=== PATIENT | female | born 2000 | race Caucasian/White ===

== ENCOUNTER → 2023-05-25 | Outpatient (CLI) | payer OTHER, SELFPAY ==
[2023-05-25 12:53] LABS: Bacteria 0 SEEN /hpf (None Seen); Mucous, Urine 0 SEEN /hpf (<or=2+); White Blood Cells 0 SEEN /hpf (0-5)
[2023-05-25 13:18] LABS: Color, Urine Yellow (Yellow); Glucose, Dipstick Normal (Normal); Ketone-Dipstick 5 mg/dl (Negative); Leukocyte Esterase-Dipstick Negative /ul (Negative); Nitrite-Dipstick Negative (Negative); Occult Blood-Urine 50 /ul (Negative); Protein-Dipstick 15 mg/dl (Negative); Specific Gravity, Urine 1.005 (1.002-1.030); Urine Bilirubin Dipstick Negative (Negative); Urine Clarity Sl. Cloudy (Clear); Urine Urobilinogen Normal (Normal)
[2023-05-25 13:24] LABS: Red Blood Cells-Urine 0-5 SEEN /hpf (0-5); Squamous Epithelial Cells - UA 5-10 SEEN /hpf (5-10)
== END | disposition home or self-care (01) ==
LOC: LAB 12:03 → LABSPEC 12:06
PROVIDERS: Referring Provider Physician Assistant; Visit Provider Physician Assistant
DX: N39.0 Urinary tract infection, site not specified (principal)
CPT/HCPCS: 81001; 87086

== ENCOUNTER 2024-02-29 11:41 | Emergency (ER) | payer OTHER, SELFPAY ==
[2024-02-29 11:43] VITALS: BP 142/78; PULSE 77; RESP 18; TEMP 36.9; O2SAT 98; BMI 27.8
[2024-02-29 11:48] VITALS: BP 142/78; PULSE 77; RESP 18; TEMP 36.9; O2SAT 98
--- NOTE | 2024-02-29 11:56 | EX.ED.DYSGE1 ---
HPI History of Present Illness Chief Complaint: Abd Pain Narrative Narrative: 23-year-old female presents with left upper quadrant abdominal pain and nausea and vomiting x 2 that started this morning. She states she has had this type of upper abdominal pain intermittently for years. She is 11 weeks and it has been a little more frequent since then but today is the most severe. Last night she had potatoes and a hot dog and this morning had a couple pretzels and then vomited twice and the emesis looked brown. Nothing bloody or black. She states she has been mildly constipated in the period but had a bowel movement yesterday and has had no melena or hematochezia. She takes no medications. She does not smoke or drink alcohol. No surgical history. PFSH PFSH Home Medications ?Medication ?Instructions ?Recorded ?Last Taken ?Type nitrofurantoin macrocrystal 100 mg 100 mg PO Q12H #10 caps 05/25/23 Unknown Rx capsule omeprazole 20 mg capsule,delayed 20 mg PO DAILY #30 CAPSULES 02/29/24 Unknown Rx release Allergy/AdvReac Type Severity Reaction Status Date / Time No Known Allergies Allergy Verified 02/29/24 11:42 Social History Smoking Status: Never smoker ROS ROS ED ROS Narrative Constitutional: Negative for fever, chills, malaise. CVS: Negative for chest pain, syncope. Respiratory: Negative for shortness of breath. GI: Positive for abdominal pain, nausea, vomiting. Negative for melena, hematochezia. : Negative for dysuria. EXAM Physical Exam Narrative Exam Narrative: CONST: Patient sitting in no acute distress. EYES: Normal inspection. NECK: Normal inspection. RESP: No respiratory distress, CTAB. CVS: Regular rate and rhythm, no murmur, no gallop. ABD: Soft with mild left upper quadrant tenderness, no guarding or rebound, nondistended, no hepatosplenomegaly. SKIN: Color normal, no rash, warm, dry, intact. EXTREMITIES: Normal appearance, no pedal edema. NEURO: Alert and answering questions appropriately. PSYCH: Normal affect. Const Vital Signs: 02/29/24 11:43 02/29/24 11:48 02/29/24 12:00 Temperature 98.4 F 98.4 F Temperature Source Oral Oral Pulse Rate 77 77 67 Respiratory Rate 18 18 16 Blood Pressure 142/78 H 142/78 H 132/78 H Blood Pressure Mean 99 99 96 Pulse Ox 98 98 98 Oxygen Delivery Method Room Air Room Air 02/29/24 13:00 02/29/24 14:00 02/29/24 14:49 Temperature 97.2 F L Temperature Source Pulse Rate 76 67 61 Respiratory Rate 18 16 15 Blood Pressure 133/83 H 130/78 H 124/69 H Blood Pressure Mean 99 95 87 Pulse Ox 96 97 99 Oxygen Delivery Method Room Air Room Air MDM MDM MDM Narrative Medical decision making narrative: History gathered from: Patient and spouse Differential: GERD, PUD, pancreatitis, less likely gallbladder etiology or kidney stone based on history/location Patient has left upper quadrant pain with nausea and vomiting. This has been an intermittent problem but seemed worse today. She appears well and nontoxic. Vital signs stable. She has normal cardiopulmonary exam tenderness in left upper quadrant with no peritoneal signs. CBC, CMP, lipase only notable for mild hypokalemia at 3.2. test is negative. She was initially treated with IV Zofran, Pepcid, and p.o. potassium. She still had some abdominal discomfort which resolved after GI cocktail. I suspect GERD and discussed lifestyle changes and prescribed omeprazole. Return precautions were discussed and she was discharged in stable condition. Lab Data Attestation: I reviewed the patient's lab results. Labs: Laboratory Results - last 24 hr 02/29/24 11:50 WBC 8.7 RBC 4.43 Hgb 12.6 Hct 37.6 MCV 84.9 MCH 28.4 MCHC 33.5 RDW Std Deviation 36.7 RDW Coeff of Lawson 12.0 Plt Count 355 MPV 9.8 Immature Gran % (Auto) 0.500 Neut % (Auto) 75.3 H Lymph % (Auto) 16.6 L [place] % (Auto) 5.7 Eos % (Auto) 1.4 Baso % (Auto) 0.5 Absolute Neuts (auto) 6.5 Absolute Lymphs (auto) 1.44 Nucleated RBC % 0 Sodium 138 Potassium 3.2 L Chloride 106 Carbon Dioxide 24.0 Anion Gap 8 BUN 14 Creatinine 0.79 Estim Creat Clear Calc 96.79 Est GFR (MDRD) Af Amer 115 Est GFR (MDRD) Non-Af 95 BUN/Creatinine Ratio 17.7 Glucose 132 H Calcium 9.2 Total Bilirubin 0.60 AST 8 L ALT 10 L Alkaline Phosphatase 74 Total Protein 7.3 Albumin 4.1 Globulin 3.2 Albumin/Globulin Ratio 1.3 Lipase 38 Serum , Qual NEGATIVE Discharge Plan Triage Chief Complaint: Abd Pain ED Midlevel Provider: Lorenza Fowler ED Provider: Shakeel Olguin Dx/Rx/DC Orders Clinical Impression: Acute epigastric pain, Nausea and vomiting, Hypokalemia Instructions: ED GERD (Adult) Prescriptions: New omeprazole 20 mg capsule,delayed release(DR/EC) 20 mg PO DAILY Qty: 30 0RF No Action nitrofurantoin macrocrystal 100 mg capsule 100 mg PO Q12H Qty: 10 0RF Rx Instructions: must administer with a meal/food Primary Care Provider: Mauricio Brown Referrals: Mauricio Brown, [Primary Care Provider] - Activity Restrictions/Additional Instructions: Avoid spicy food or fried or fatty foods. After eating sit upright for least 2 hours. Take the medication daily and follow-up with your doctor. Return if symptoms worsen. Print Language: Nepalese Disposition Disposition: Home, Self Care Discharge Date/Time: 02/29/24 14:50
[2024-02-29] MEDS: Ondansetron 4 MG/2 ML Vial IV (11:58)
[2024-02-29 12:00] VITALS: BP 132/78; PULSE 67; RESP 16; O2SAT 98
[2024-02-29] MEDS: Famotidine 200 MG/20 ML MDV 20 MG in 0.9% Normal Saline (Pres. free 8 ML 300 MG IV (12:13)
[2024-02-29 12:19] LABS: Absolute Lymphocyte Count 1.44 X10^3/uL (0.83-4.51); Absolute Neutrophil Count 6.5 X10^3/uL (2.0-7.7); Basophil# 0.04 X10^3/uL; Basophil% 0.5 % (0-1); Eosinophil# 0.12 X10^3/uL; Eosinophils% 1.4 % (0-5); Hematocrit 37.6 % (37-47); Hemoglobin 12.6 g/dL (12.0-15.0); Lymphocyte # 1.44 X10^3/ul (0.83-4.51); Lymphocyte % 16.6 % (19-41); Mean Corp Hgb Conc 33.5 g/dL (32-36); Mean Corpuscular Hgb 28.4 pg (27.0-32.0); Mean Corpuscular Volume 84.9 fL (81-99); Mean Platelet Vol. 9.8 fl (6.2-12.0); Monocyte# 0.49 X10^3/uL; Monocyte% 5.7 % (0-10); NRBC Flagged by Analyzer 0 % (0-5); Neutrophil # 6.53 X10^3/uL (2.7-7.7); Neutrophil % 75.3 % (47-70); Platelet Count 355 K/mm3 (150-450); RBC Distribution Width SD 36.7 fl (35.1-43.9); Red Blood Count 4.43 M/mm3 (4.2-5.4); White Blood Count 8.7 K/mm3 (4.4-11.0)
[2024-02-29 12:34] LABS: ALB/GLOB Ratio 1.3 RATIO (0.9-2.4); AST(SGOT) 8 U/L (15-37); Alanine Aminotransfer ALT/SGPT 10 U/L (13-56); Albumin, Serum 4.1 g/dL (3.2-5.0); Alkaline Phosphatase 74 U/L (45-117); Anion Gap 8 (5-15); BUN 14 mg/dL (7-18); BUN/Creat Ratio 17.7 RATIO (10-20); Calcium,Total 9.2 mg/dL (8.5-10.1); Chloride 106 mmol/L (98-107); Creatinine, Serum 0.79 mg/dL (0.55-1.02); EST Glomerular Filtration Rate 95 mL/min (>60); Est Glom Filt Rate - Afr Amer 115 mL/min (>60); Estimated Creatinine Clearance 96.79 ml/min; Globulin 3.2 g/dL (2.2-4.2); Glucose 132 mg/dL (74-106); Lipase 38 U/L (13-75); Potassium 3.2 mmol/L (3.5-5.1); Protein, Total 7.3 g/dL (6.4-8.2); Sodium Level 138 mmol/L (136-145)
[2024-02-29 12:41] LABS: Internal QC Validated? YES +Cl - CLEAR BKGD; Pregnancy, Serum, hCG Quali. NEGATIVE Negative
[2024-02-29 13:00] VITALS: BP 133/83; PULSE 76; RESP 18; O2SAT 96
[2024-02-29] MEDS: Lidocaine 2% Viscous15 ML UDC 15 ML PO (13:45)
[2024-02-29] MEDS: Mag Hydrox/Al Hydrox/Simeth 30 ML UDC PO (13:46)
[2024-02-29] MEDS: Potassium Chloride Oral Tablet 20 MEQ 40 MEQ PO (13:46)
[2024-02-29 14:00] VITALS: BP 130/78; PULSE 67; RESP 16; O2SAT 97
[2024-02-29 14:49] VITALS: BP 124/69; PULSE 61; RESP 15; TEMP 36.2; O2SAT 99
== END 2024-02-29 14:50 | disposition home or self-care (01) ==
PROVIDERS: Physician Assistant; Emergency Provider Emergency Medicine; PCP Family Medicine; Visit Provider Emergency Medicine
DX: R10.12 Left upper quadrant pain (principal); R10.13 Epigastric pain; E87.6 Hypokalemia; R11.2 Nausea with vomiting, unspecified
CPT/HCPCS: 80053; 83690; 84703; 85025; 90471; 96365; 96366; 96375; 99283; A4216; J2405; J3490

== ENCOUNTER 2024-03-04 23:32 | Observation (INO) | payer OTHER, SELFPAY ==
[2024-03-04 23:33] VITALS: PULSE 90; RESP 18; TEMP 37.2; O2SAT 98; BMI 28.6
[2024-03-04 23:38] VITALS: BP 133/85; PULSE 94; RESP 18; TEMP 37.2; O2SAT 95
[2024-03-05] VITALS (12 sets, daily range): BP systolic 113–133; BP diastolic 65–84; PULSE 69–103; RESP 14–18; TEMP 36.2–36.8; O2SAT 96–99; BMI 28.6
[2024-03-05 00:40] LABS: Bacteria 0 SEEN /hpf (None Seen); Mucous, Urine 0 SEEN /hpf (<or=2+); Red Blood Cells-Urine 0 SEEN /hpf (0-5); Squamous Epithelial Cells - UA 0 SEEN /hpf (5-10)
[2024-03-05 00:42] LABS: Color, Urine Yellow (Yellow); Glucose, Dipstick Normal (Normal); Ketone-Dipstick 50 mg/dl (Negative); Leukocyte Esterase-Dipstick 100 /ul (Negative); Nitrite-Dipstick Negative (Negative); Occult Blood-Urine 25 /ul (Negative); Protein-Dipstick 30 mg/dl (Negative); Urine Bilirubin Dipstick Negative (Negative); Urine Clarity Clear (Clear); Urine Urobilinogen Normal (Normal); Urine pH 6.5 (5.0 - 8.0)
[2024-03-05 00:42] LABS: Absolute Lymphocyte Count 1.46 X10^3/uL (0.83-4.51); Absolute Neutrophil Count 6.7 X10^3/uL (2.0-7.7); Basophil# 0.04 X10^3/uL; Basophil% 0.4 % (0-1); Eosinophil# 0.21 X10^3/uL; Eosinophils% 2.2 % (0-5); Hematocrit 32.8 % (37-47); Hemoglobin 10.8 g/dL (12.0-15.0); Lymphocyte # 1.46 X10^3/ul (0.83-4.51); Lymphocyte % 15.5 % (19-41); Mean Corp Hgb Conc 32.9 g/dL (32-36); Mean Corpuscular Hgb 28.6 pg (27.0-32.0); Mean Corpuscular Volume 86.8 fL (81-99); Mean Platelet Vol. 9.6 fl (6.2-12.0); Monocyte# 0.79 X10^3/uL; Monocyte% 8.4 % (0-10); NRBC Flagged by Analyzer 0 % (0-5); Neutrophil # 6.74 X10^3/uL (2.7-7.7); Neutrophil % 71.5 % (47-70); Platelet Count 329 K/mm3 (150-450); RBC Distribution Width SD 38.1 fl (35.1-43.9); Red Blood Count 3.78 M/mm3 (4.2-5.4); White Blood Count 9.4 K/mm3 (4.4-11.0)
[2024-03-05 00:51] LABS: White Blood Cells 0-5 SEEN /hpf (0-5)
[2024-03-05 01:04] LABS: Anion Gap 8 (5-15); BUN 15 mg/dL (7-18); BUN/Creat Ratio 11.6 RATIO (10-20); Calcium,Total 8.5 mg/dL (8.5-10.1); Chloride 107 mmol/L (98-107); Creatinine, Serum 1.29 mg/dL (0.55-1.02); EST Glomerular Filtration Rate 54 mL/min (>60); Est Glom Filt Rate - Afr Amer 66 mL/min (>60); Estimated Creatinine Clearance 60.13 ml/min; Glucose 99 mg/dL (74-106); Potassium 3.3 mmol/L (3.5-5.1); Sodium Level 138 mmol/L (136-145)
[2024-03-05] MEDS: 0.9% Normal Saline (1000mL) 1,000 ML 250 ML IV (01:15)
--- NOTE | 2024-03-05 01:48 | EX.ED.DYSGE1 ---
HPI History of Present Illness Chief Complaint: Complaint Informant: patient and spouse/S.O. Narrative Narrative: Patient is a 23-year-old Sikh[place] female with no significant past medical history. She was seen roughly 4 days ago secondary to abdominal/flank pain. She states that her symptoms were not improving and therefore she followed up with her family doctor who ordered a CT scan which showed a large kidney stone. Patient states she is on Percocet as well as ibuprofen and is taking those as directed. Despite taking the pain medication her pain continued to worsen and secondary to his EMS was called and she was brought into the hospital for repeat evaluation [facility] Medical History Kidney stone Home Medications ?Medication ?Instructions ?Recorded ?Last Taken ?Type nitrofurantoin macrocrystal 100 mg 100 mg PO Q12H #10 caps 05/25/23 Unknown Rx capsule omeprazole 20 mg capsule,delayed 20 mg PO DAILY #30 CAPSULES 02/29/24 Unknown Rx release Allergy/AdvReac Type Severity Reaction Status Date / Time No Known Allergies Allergy Verified 02/29/24 11:42 Social History Smoking Status: Never smoker [facility] ED Constitutional Constitutional ED: Denies chills or fever(s) ENT ENT ED: Denies sore throat Cardiovascular Cardiovascular: Denies chest pain Respiratory/Chest Respiratory/Chest: Denies cough or dyspnea Gastrointestinal Gastrointestinal: Reports abdominal pain and nausea; Denies diarrhea or vomiting Genitourinary Genitourinary ED: Reports hematuria; Denies dysuria Musculoskeletal Musculoskeletal: Reports back pain Integumentary Denies rash Neurologic Neurologic: Denies headache(s) Hematologic/Lymphatic Hematologic/Lymphatic: Denies easy bleeding or easy bruising EXAM Physical Exam Const Vital Signs: 03/04/24 23:33 03/04/24 23:38 03/05/24 01:32 Temperature 98.9 F 98.9 F 98 F Temperature Source Temporal Temporal Temporal Pulse Rate 90 94 103 H Respiratory Rate 18 18 16 Blood Pressure 133/85 H 113/80 Blood Pressure Mean 101 91 Pulse Ox 98 95 98 Oxygen Delivery Method Room Air Room Air Room Air Positive well nourished and well developed General Appearance ED: well developed; Negative for pallor HEENT HEENT Narrative: Normocephalic atraumatic Eyes PERRL and EOMs intact bilaterally General Eye ED: Negative for pale conjunctiva or scleral icterus Neck supple Resp normal respiratory effort and clear to auscultation bilaterally Cardio regular rate and regular rhythm Rate: other Other Details: Heart is regular rate and rhythm without murmurs rubs or gallops Radial and carotid pulses equal and symmetric GI non-distended GI Narrative: There is mild tenderness to the patient along the left lateral abdomen diffusely without voluntary guarding or rigidity No pulsatile mass or fluid wave Auscultation: hypoactive bowel sounds Palpation: soft Back/Spine Back/Spine Narrative: Positive left CVA pain noted Extremity normal to inspection Neuro oriented x3, CN's II-XII intact bilaterally and no sensory deficits noted Sensorium / Orientation: alert Motor Exam: strength 5/5 throughout Psych mental status grossly normal Skin no rashes or lesions noted and no wounds Skin Narrative: No overlying soft tissue changes to suggest trauma or infection General Skin Exam: Negative for jaundice or pallor MDM MDM MDM Narrative Medical decision making narrative: Patient arrived to the ER with stable vitals and reported resolution or improvement of her pain down to evaluate 3 after receiving morphine by EMS. Chart review was performed and it shows she had a CT scan done earlier today that reveals a large left-sided kidney stone that is roughly 1.2 x 1.2 x 0.9 cm in size. This correlates with the location and persistence of the patient's pain. She also has mild elevation to her kidney function changing from 0.79-1.29 today. However this does not elevate high enough to classify as acute kidney injury. Urine sample reveals no sign of infection and she does not have physical exam or lab findings to suggest urosepsis. However despite the fact she is taking adequate pain medication but having intractable pain there is concern she will need admitted to the hospital and therefore the case was discussed with the urologist on-call Dr. Gamboa. She agrees that with the patient's intractable pain despite taking adequate pain medication she will require a procedure most likely a stent and therefore will admit the patient at this time for further care. History & Record Review Discussion w/independent historian: Patient and Significant other Lab Data Attestation: I reviewed the patient's lab results. Labs: Laboratory Results - last 24 hr 03/05/24 03/05/24 00:27 00:34 WBC 9.4 RBC 3.78 L Hgb 10.8 L Hct 32.8 L MCV 86.8 MCH 28.6 MCHC 32.9 RDW Std Deviation 38.1 RDW Coeff of Lawson 12.0 Plt Count 329 MPV 9.6 Immature Gran % (Auto) 2.000 H Neut % (Auto) 71.5 H Lymph % (Auto) 15.5 L [place] % (Auto) 8.4 Eos % (Auto) 2.2 Baso % (Auto) 0.4 Absolute Neuts (auto) 6.7 Absolute Lymphs (auto) 1.46 Nucleated RBC % 0 Sodium 138 Potassium 3.3 L Chloride 107 Carbon Dioxide 23.0 Anion Gap 8 BUN 15 Creatinine 1.29 H Estim Creat Clear Calc 60.13 Est GFR (MDRD) Af Amer 66 Est GFR (MDRD) Non-Af 54 L BUN/Creatinine Ratio 11.6 Glucose 99 Calcium 8.5 Urine Color Yellow Urine Clarity Clear Urine pH 6.5 Ur Specific [place] 1.010 Urine Protein 30 H Urine Glucose (UA) Normal Urine Ketones 50 H Urine Occult Blood 25 H Urine Nitrite Negative Urine Bilirubin Negative Urine Urobilinogen Normal Ur Leukocyte Esterase 100 H Urine RBC 0 SEEN Urine WBC 0-5 SEEN Ur Squamous Epith Cells 0 SEEN Urine Bacteria 0 SEEN Urine Mucus 0 SEEN Urine Test Negative Management Discussion w/another healthcare provider: [facility] Discharge Plan Dx/Rx/DC Orders Clinical Impression: Kidney stone, Renal colic, Intractable pain Disposition Disposition: Acute Care Hospital [facility] Discharge Date/Time: 03/05/24 03:11
[2024-03-05 03:45] LABS: Internal QC Validated? YES +Cl - CLEAR BKGD; Pregnancy, Urine Negative Negative
[2024-03-05] MEDS: Acetaminophen 500 MG Tablet 1000 MG PO (05:37)
[2024-03-05] MEDS: Cefazolin 1 GM/50 ML BAG IV ×2 (05:37→13:19)
[2024-03-05] MEDS: Lactated Ringers 1,000 ML 125 ML IV ×2 (05:38→14:04)
[2024-03-05 08:21] LABS: International Normalized Ratio 1.2; Prothrombin Time (Protime)PT. 14.7 SECONDS (11.7-14.9)
[2024-03-05 08:22] LABS: Partial Thromboplast Time 37.3 Seconds (24.1-36.2)
--- NOTE | 2024-03-05 08:32 | HP.PCM_ITS ---
[facility] - General General Date of Admission: 03/05/24 Date of Service: 03/05/24 Chief Complaint: Left flank pain HPI Narrative BLUE ZAZUETA, is a 23 F who presented to the emergency room with uncontrolled left flank pain with nausea and vomiting. She has had this pain for approximately 5 days. She denies fever, chills, dysuria, hematuria or lower urinary tract symptoms. The pain is also in her left upper abdomen. She has no history of kidney stones previously but did have urinary tract infections during her . She last delivered approximately 3 months ago. [facility] Medical History Kidney stone Home Medications ?Medication ?Instructions ?Recorded ?Last Taken ?Type nitrofurantoin macrocrystal 100 mg 100 mg PO Q12H #10 caps 05/25/23 Unknown Rx capsule omeprazole 20 mg capsule,delayed 20 mg PO DAILY #30 CAPSULES 02/29/24 Unknown Rx release Allergy/AdvReac Type Severity Reaction Status Date / Time No Known Allergies Allergy Verified 02/29/24 11:42 Social History Smoking Status: Never smoker ROS Constitutional Constitutional: Denies chills or fever(s) Eyes Eyes: Reports systems reviewed and no addt'l complaints, except as documented ENT HEENT: Reports systems reviewed and no addt'l complaints, except as documented Cardiovascular Cardiovascular: Denies chest pain, diaphoresis or dyspnea Respiratory/Chest Respiratory/Chest: Denies chest congestion or cough Gastrointestinal Gastrointestinal: Reports abdominal pain, nausea and vomiting Genitourinary Genitourinary: Reports abdominal discomfort and flank pain; Denies burning urination, dysuria or hematuria Musculoskeletal Musculoskeletal: Reports back pain Integumentary Integumentary: Reports systems reviewed and no addt'l complaints, except as documented Neurologic Neurologic: Reports systems reviewed and no addt'l complaints, except as documented Psychiatric Psychiatric: Reports systems reviewed and no addt'l complaints, except as documented Endocrine Endocrinology: Reports systems reviewed and no addt'l complaints, except as documented Hematologic/Lymphatic Hematologic/Lymphatic: Reports systems reviewed and no addt'l complaints, except as documented Allergic/Immunologic Allergic/Immunologic: Reports systems reviewed and no addt'l complaints, except as documented Vital Signs Vital Signs Vital Signs: 03/04/24 23:33 03/04/24 23:38 03/05/24 01:32 Temperature 98.9 F 98.9 F 98 F Temperature Source Temporal Temporal Temporal Pulse Rate 90 94 103 H Respiratory Rate 18 18 16 Respiratory Effort Respiratory Depth Respiratory Pattern Blood Pressure 133/85 H 113/80 Blood Pressure Mean 101 91 Blood Pressure Source Blood Pressure Position Blood Pressure Location Pulse Ox 98 95 98 Oxygen Delivery Method Room Air Room Air Room Air 03/05/24 02:48 03/05/24 02:57 03/05/24 03:00 Temperature 98 F 98 F Temperature Source Oral Pulse Rate 103 H 96 Respiratory Rate 16 14 Respiratory Effort Normal Non-Labored Respiratory Depth Normal Respiratory Pattern Normal Blood Pressure 113/80 115/71 Blood Pressure Mean 91 85 Blood Pressure Source Monitor Blood Pressure Position Semi-Fowlers Blood Pressure Location Right Arm Pulse Ox 98 98 Oxygen Delivery Method Room Air Room Air Weight Weight: 68.7 kg Body Mass Index (BMI) 28.6 Results Lab / Micro Data 03/05/24 00:27 03/05/24 00:27 Labs: Laboratory Results - last 24 hr 03/05/24 00:27: WBC 9.4, RBC 3.78 L, Hgb 10.8 L, Hct 32.8 L, MCV 86.8, MCH 28.6, MCHC 32.9, RDW Std Deviation 38.1, RDW Coeff of Lawson 12.0, Plt Count 329, MPV 9.6, Immature Gran % (Auto) 2.000 H, Neut % (Auto) 71.5 H, Lymph % (Auto) 15.5 L , [place] % (Auto) 8.4, Eos % (Auto) 2.2, Baso % (Auto) 0.4, Absolute Neuts (auto) 6.7, Absolute Lymphs (auto) 1.46, Nucleated RBC % 0, Sodium 138, Potassium 3.3 L , Chloride 107, Carbon Dioxide 23.0, Anion Gap 8, BUN 15, Creatinine 1.29 H, Estim Creat Clear Calc 60.13, Est GFR (MDRD) Af Amer 66, Est GFR (MDRD) Non-Af 54 L, BUN/Creatinine Ratio 11.6, Glucose 99, Calcium 8.5 03/05/24 00:34: Urine Color Yellow, Urine Clarity Clear, Urine pH 6.5, Ur Specific [place] 1.010, Urine Protein 30 H, Urine Glucose (UA) Normal, Urine Ketones 50 H, Urine Occult Blood 25 H, Urine Nitrite Negative, Urine Bilirubin Negative, Urine Urobilinogen Normal, Ur Leukocyte Esterase 100 H, Urine RBC 0 SEEN, Urine WBC 0-5 SEEN, Ur Squamous Epith Cells 0 SEEN, Urine Bacteria 0 SEEN, Urine Mucus 0 SEEN, Urine Test Negative 03/05/24 06:12: PT 14.7, INR 1.2, APTT 37.3 H Imaging Imaging in an outside institution was performed and she has an obstructing left- sided stone greater than 1 cm in size. This was discussed with her physician yesterday. Assessment & Plan Assessment/Plan (1) Kidney stone: (2) Intractable pain: (3) Nausea and vomiting: (4) UTI (urinary tract infection): PLAN: Plan Proceed with cystoscopy and left ureteral stent insertion today Continue antibiotic coverage and await urine culture results Plan for definitive surgical intervention on her left stone in approximately 2 to 3 weeks as an outpatient The risks, benefits and alternatives were discussed with the patient. She understands and agrees to proceed
--- NOTE | 2024-03-05 12:31 | PCM.OPRPT ---
Report of Operation Date of Procedure: 03/05/24 Pre-Operative Diagnosis: left renal stone with intractable pain Post-Operative Diagnosis: same Surgery/Procedure Performed:: Cystoscopy with left ureteral stent insertion Type of Anesthesia: MAC Description of Procedure: The patient is a 23-year-old female with a history of stones who presented to the emergency room with intractable left flank pain. She was found to have large left renal pelvic stone She now presents for cystoscopy with left ureteral stent insertion. Informed consent was obtained. She was taken the operating room and placed on the operating room table. Anesthesia monitored the head, neck, airway, IV access and vital signs throughout the case. Once anesthesia was appropriate ministered, she was placed into dorsolithotomy position and was prepped and draped in usual sterile fashion. The cystoscope was inserted through the urethra under direct visualization into the urinary bladder. The bladder mucosa was visualized in its entirety revealing no evidence of mass, erythema, ulceration or foreign body. A 0.035 Glidewire was then used to cannulate the left ureteral orifice advanced easily into the renal pelvis. A 4.5 [place] by 22 cm stent was selected and passed over the Glidewire with good positioning in the renal pelvis as well as the urinary bladder. Lots of urine came from the stent. At this time the patient's bladder was emptied and the cystoscope was removed. She was awakened and taken to the recovery room in good condition. There were no complications during this procedure. Grafts/Implants Used: 4.5 [place] by 22 cm JJ stent Complications None Admit VTE Documentation VTE Present on Admission: Yes VTE Mechan Device Prophylaxis: SCD's Reason prophylaxis not ordered:: Treatment Not Indicated
[2024-03-05] MEDS: 0.9% Saline Lock 10 ML Syringe IV (13:19)
[2024-03-05] MEDS: Ketorolac 15 MG/ML Vial IV (13:19)
--- NOTE | 2024-03-05 16:49 | PCM.PRE.AN2 ---
ASA Classification* ASA Classification ASA Classification: 2 Assessment & Plan Anesthesia* Anesthesia Assessment Anesthesia Assessment: Discussed sedation and/or anesthesia options, risks, benefits, and alternatives with patient/parents/legal guardian/POA. Questions invited. The patient/parents/legal guardian/POA seems to understand and agrees to proceed with anesthesia plan. Reviewed the physical assessment, medical history, allergy history and patient home medications list prior to surgery/procedure/anesthetic and documented any changes. Performed airway and anesthesia risk assessments. Anesthesia Type Anesthesia Type: MAC History Source History Obtained from:: Patient and Chart Anesthesia Focused Assessment* Temperature: 98.3 F Pulse Rate: 69 Blood Pressure: 133/79 Respiratory Rate: 18 Pulse Ox: 98 Oxygen Delivery Method: Room Air Airway Assessment Mouth opens: 2 cm Mallampati Score: IV Teeth Condition: Caps/Crowns (#8 #9) Neck Range of motion (ROM): Full ROM Focused Labs Anesthesia Preop lab: CBC WBC 9.4 K/mm3 (4.4-11.0) 03/05/24 00:27 RBC 3.78 M/mm3 (4.2-5.4) L 03/05/24 00:27 Hgb 10.8 g/dL (12.0-15.0) L 03/05/24 00:27 Hct 32.8 % (37-47) L 03/05/24 00:27 Plt Count 329 K/mm3 (150-450) 03/05/24 00:27 CHEMISTRY Potassium 3.3 mmol/L (3.5-5.1) L 03/05/24 00:27 Sodium 138 mmol/L (136-145) 03/05/24 00:27 BUN 15 mg/dL (7-18) 03/05/24 00:27 Creatinine 1.29 mg/dL (0.55-1.02) H 03/05/24 00:27 Glucose 99 mg/dL (74-106) 03/05/24 00:27 COAG PT 14.7 SECONDS (11.7-14.9) 03/05/24 06:12 Urine Test Negative Negative 03/05/24 00:34 Pre-Assessment Diagnosis/Proposed Procedure Planned Operative Procedure(s): Cystoscopy with left ureteral stent insertion Anesthesia History 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 When Was Last Pacemaker Check QUESTION #4 FULL TEXT: You/Your Family Experience fever (hyperthermia) with Anesthesia Last Oral Intake Last Oral intake: Last Oral Intake NPO since 00:00 03/05/24 09:06 Meds taken in AM with sips of No 03/05/24 09:06 water? 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 - corporate bond trader: PONV - corporate bond trader Female HX of Motion Sickness HX of N/V After Surgery Non-Smoker Duration of Surgery greater than 60 minutes Number of Risk Factors PONV Score Height & Weight Height & Weight: Anesthesia: Height & Weight Height 5 ft 1 in 03/05/24 09:06 Weight: 68.7 kg 03/05/24 09:06 Body Mass Index (BMI) 28.6 03/05/24 09:06 Respiratory Assessment Respiratory Assessment - corporate bond trader: Respiratory Tract Infection Hx - corporate bond trader Hx Respiratory Tract Infection No 03/05/24 02:57 STOP Sleep Apnea STOP Sleep Apnea - corporate bond trader: STOP Sleep Apnea - corporate bond trader Hx Hypertension No 03/05/24 02:57 Hx Sleep Apnea No 03/05/24 02:57 CPAP BIPAP Do you snore loudly (louder No 03/05/24 02:57 than talking or can be heard Do you often feel tired/ No 03/05/24 02:57 fatigued/ sleepy during daytime? Has anyone observed you stop No 03/05/24 02:57 breathing during sleep? STOP Results Negative 03/05/24 02:57 QUESTION #5 FULL TEXT : Do you snore loudly (louder than talking or can be heard through closed doors)? 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 Specify any problems Hx of Preganancy in last 3 Yes 03/05/24 02:57 Months Nurse Filling Out Transfusion KBORNSTIN 03/05/24 02:57 & Questions: Date: 03/05/24 03/05/24 02:57 Time: 03:23 03/05/24 02:57 Patient unable to answer at this time (ie. confused, unrespo /Reproduction History /Reproductive History - corporate bond trader: /Reproductive Hx- corporate bond trader Hx Now No 03/05/24 02:57 Gestational Age (in weeks): EDC: Hx Hx Para Hx Section SAB Yes 03/05/24 02:57 Active Medications Active Medications: Current Medications Generic Name Dose Route Start Last Admin Trade Name Freq PRN Reason Stop Dose Admin Acetaminophen 1,000 mg 03/05/24 06:00 03/05/24 13:15 Acetaminophen 500 Mg Tablet PO Not Given Q8 LILO Sodium Chloride 250 mls @ 15 mls/hr 03/05/24 03:00 IV .[id number] PRN Saline Flush Lactated Ringer's 1,000 mls @ 125 mls/hr 03/05/24 04:00 03/05/24 14:04 IV 125 mls/hr .Q8H LILO Administration Cefazolin Sodium 1 gm in 50 mls @ 100 mls/hr 03/05/24 06:00 03/05/24 14:02 IV Infused Q8 LILO Infusion Ketorolac Tromethamine 15 mg 03/05/24 03:55 03/05/24 13:19 Ketorolac 15 Mg/Ml Vial IV 03/10/24 03:57 15 mg Q6H PRN PRN Administration Pain Score 1-10 Melatonin 3 mg 03/05/24 03:55 Melatonin 3 Mg Tablet PO QHS PRN PRN INSOMNIA Morphine Sulfate 2 - 4 mg 03/05/24 03:55 Morphine 2 Mg/Ml Syringe IV Q3H PRN PRN Pain Score 6-10 Ondansetron HCl 4 mg 03/05/24 03:55 Ondansetron 4 Mg/2 Ml Vial IV Q8H PRN PRN NAUSEA/VOMITING Oxycodone HCl 10 mg 03/05/24 03:55 Oxycodone 5 Mg Tablet PO Q4H PRN PRN Pain Score 4-10 Pantoprazole Sodium 20 mg 03/05/24 10:00 03/05/24 07:30 Pantoprazole Sodium 20 Mg Tablet PO Not Given DAILY LILO Prochlorperazine Edisylate 5 mg 03/05/24 03:55 Prochlorperazine 10 Mg/2 Ml Vial IV Q4H PRN PRN Breakthrough nausea/vomiting Sodium Chloride 10 - 40 ml 03/05/24 03:00 03/05/24 13:19 0.9% Saline Lock 10 Ml Syringe IV 10 ml UD PRN Administration SALINE FLUSH PFSH Medical History Kidney stone Home Medications ?Medication ?Instructions ?Recorded ?Last Taken ?Type nitrofurantoin macrocrystal 100 mg 100 mg PO Q12H #10 caps 05/25/23 Unknown Rx capsule omeprazole 20 mg capsule,delayed 20 mg PO DAILY #30 CAPSULES 02/29/24 Unknown Rx release Allergy/AdvReac Type Severity Reaction Status Date / Time No Known Allergies Allergy Verified 02/29/24 11:42 Social History Smoking Status: Never smoker Review of Systems (Anesthesia) ROS Narrative System reviewed and no additional complaints, except as documented.
--- NOTE | 2024-03-05 17:30 | DCINST_ITS ---
Discharge Instructions Diet Discharge Diet: No restrictions Activity Discharge Activity: Return to Normal Activity Dressing / Incision Call your doctor if you observe: Fever of 101 or Higher, Inability to urinate and Inability to have a bowel movement Follow Up Care Please Follow Up With: Nichol Gamboa MD When: The office will call her to make follow up arrangements. Test Results: Test results from this visit will be discussed in further detail at your follow- up appointment, if applicable. Discharge Plan Admission Admit Date/Time: 03/05/24 03:55 Attending Provider: Nichol Gamboa Primary Care Provider: Era Reyes Discharge Orders/Prescriptions Prescriptions: New oxycodone-acetaminophen [Percocet] 5-325 mg tablet 1 tab PO Q8H PRN (Reason: pain) 3 Days Qty: 10 0RF ondansetron 4 mg tablet,disintegrating 4 mg PO Q8H PRN (Reason: nausea and vomiting) Qty: 10 0RF No Action nitrofurantoin macrocrystal 100 mg capsule 100 mg PO Q12H Qty: 10 0RF Rx Instructions: must administer with a meal/food omeprazole 20 mg capsule,delayed release(DR/EC) 20 mg PO DAILY Qty: 30 0RF Referrals / Follow Up: Era Reyes MD [Primary Care Provider] - Disposition Disposition (needs filled in before D/C Order can be placed): Home, Self Care
--- NOTE | 2024-03-05 17:41 | PCM.POST.ANE ---
Anesthesia: Postop Eval I Current Vital Signs Temperature: 97.7 F Pulse Rate: 76 Blood Pressure: 125/80 Respiratory Rate: 16 Pulse Ox: 97 Oxygen Delivery Method: Room Air Assessment Airway patent: Yes Spontaneous unlabored respirations: Yes Mental status: Awake and Calm nausea: No Vomiting: No Anesthesia Complication: No Fluid Hydration Crystalloid volume administer (ml): 400 Total IV fluid infused: 400 Progress Note Anesthesia document: Postop Eval 1 completed: Yes
--- NOTE | 2024-03-05 17:56 | DCINST_ITS ---
Discharge Instructions Diet Discharge Diet: No restrictions Dressing / Incision Call your doctor if you observe: Fever of 101 or Higher, Inability to urinate and Inability to have a bowel movement Follow Up Care Please Follow Up With: Nichol Gamboa MD Test Results: Test results from this visit will be discussed in further detail at your follow- up appointment, if applicable. Discharge Plan Admission Admit Date/Time: 03/05/24 03:55 Attending Provider: Nichol Gamboa Primary Care Provider: Era Reyes Discharge Orders/Prescriptions Prescriptions: New oxycodone-acetaminophen [Percocet] 5-325 mg tablet 1 tab PO Q8H PRN (Reason: pain) 3 Days Qty: 10 0RF ondansetron 4 mg tablet,disintegrating 4 mg PO Q8H PRN (Reason: nausea and vomiting) Qty: 10 0RF cephalexin 500 mg capsule 500 mg PO 3XD 5 Days Qty: 15 0RF No Action nitrofurantoin macrocrystal 100 mg capsule 100 mg PO Q12H Qty: 10 0RF Rx Instructions: must administer with a meal/food omeprazole 20 mg capsule,delayed release(DR/EC) 20 mg PO DAILY Qty: 30 0RF Referrals / Follow Up: Era Reyes MD [Primary Care Provider] - Disposition Disposition (needs filled in before D/C Order can be placed): Home, Self Care
--- NOTE | 2024-03-06 06:24 | POSTOPAN2_ITS ---
Anesthesia Postop Eval I Sum Postop Eval Completion status Anesthesia document: Postop Eval 1 completed: Yes Anesthesia Postop Eval I Summary Anesthesia Postop Eval I Summary: Anesthesia Postop Eval I: Assessment Summary Airway patent Yes 03/05/24 17:42 GUEST SPECIALIST.[email or web address] Spontaneous unlabored Yes 03/05/24 17:42 GUEST SPECIALIST.NAWAF respirations Mental status Awake,Calm 03/05/24 17:42 GUEST SPECIALIST.NAWAF nausea No 03/05/24 17:42 GUEST SPECIALIST.NAWAF Vomiting No 03/05/24 17:42 GUEST SPECIALIST.NAWAF Anesthesia Postop Eval I: Fluid Summary Crystalloid volume administer 400 03/05/24 17:42 GUEST SPECIALIST.SUY (ml) Colloids volume administered ( ml) Blood Product volume administered (ml) Total IV fluid infused 400 03/05/24 17:42 GUEST SPECIALIST.NAWAF Anesthesia Postop Eval I: Summary Notes Anesthesia Complication No 03/05/24 17:42 GUEST SPECIALIST.NAWAF Anesthesia Complication Comment: Post-operative progress note Anesthesia: Postop Eval II Evaluation Mental status: Awake Pain Level: 1 nausea: No Vomiting: No Complications Anesthesia Complication: No
--- NOTE | 2024-03-06 06:24 | PCM.POSTANE2 ---
Anesthesia Postop Eval I Sum Postop Eval Completion status Anesthesia document: Postop Eval 1 completed: Yes Anesthesia Postop Eval I Summary Anesthesia Postop Eval I Summary: Anesthesia Postop Eval I: Assessment Summary Airway patent Yes 03/05/24 17:42 ELECTRICAL ENGINEERING DRAFTING OFFICER.JONAHOBJacqueline Spontaneous unlabored Yes 03/05/24 17:42 ELECTRICAL ENGINEERING DRAFTING OFFICER.NAWAF respirations Mental status Awake,Calm 03/05/24 17:42 ELECTRICAL ENGINEERING DRAFTING OFFICER.NAWAF nausea No 03/05/24 17:42 ELECTRICAL ENGINEERING DRAFTING OFFICER.NAWAF Vomiting No 03/05/24 17:42 ELECTRICAL ENGINEERING DRAFTING OFFICER.NAWAF Anesthesia Postop Eval I: Fluid Summary Crystalloid volume administer 400 03/05/24 17:42 ELECTRICAL ENGINEERING DRAFTING OFFICER.SUY (ml) Colloids volume administered ( ml) Blood Product volume administered (ml) Total IV fluid infused 400 03/05/24 17:42 ELECTRICAL ENGINEERING DRAFTING OFFICER.NAWAF Anesthesia Postop Eval I: Summary Notes Anesthesia Complication No 03/05/24 17:42 ELECTRICAL ENGINEERING DRAFTING OFFICER.NAWAF Anesthesia Complication Comment: Post-operative progress note Anesthesia: Postop Eval II Evaluation Mental status: Awake Pain Level: 1 nausea: No Vomiting: No Complications Anesthesia Complication: No
== END 2024-03-05 20:23 | disposition home or self-care (01) ==
LOC: ED 03-05 01:48 → MS3 03-05 04:57
PROVIDERS: Anesthesiology; Admitting Provider Urology; Emergency Provider Emergency Medicine; PCP Family Medicine; Visit Provider Urology
PROC: (CPT 52332; principal; 2024-03-05 16:50)
DX: N39.0 Urinary tract infection, site not specified (principal); N20.0 Calculus of kidney
CPT/HCPCS: 52332; 00910; 76000; 80048; 81001; 81025; 85025; 85610; 85730; 96361; 96365; 96366; 96375; 99221; 99283; J7120; A4216; G0378; J2405

== ENCOUNTER 2024-03-21 07:54 | Day surgery (SDC) | payer SELFPAY, OTHER ==
[2024-03-21] VITALS (11 sets, daily range): BP systolic 113–126; BP diastolic 64–83; PULSE 67–108; RESP 10–16; TEMP 36.1–36.8; O2SAT 68–100; BMI 26.2
--- NOTE | 2024-03-21 08:13 | PRE.ANES_ITS ---
ASA Classification* ASA Classification ASA Classification: 2 Assessment & Plan Anesthesia* Anesthesia Assessment Anesthesia Assessment: Discussed sedation and/or anesthesia options, risks, benefits, and alternatives with patient/parents/legal guardian/POA. Questions invited. The patient/parents/legal guardian/POA seems to understand and agrees to proceed with anesthesia plan. Reviewed the physical assessment, medical history, allergy history and patient home medications list prior to surgery/procedure/anesthetic and documented any changes. Performed airway and anesthesia risk assessments. Anesthesia Type Anesthesia Type: General Anesthesia Focused Assessment* Airway Assessment Mouth opens: >3 cm Mallampati Score: II Focused Labs Anesthesia Preop lab: CBC WBC 9.4 K/mm3 (4.4-11.0) 03/05/24 00:27 RBC 3.78 M/mm3 (4.2-5.4) L 03/05/24 00:27 Hgb 10.8 g/dL (12.0-15.0) L 03/05/24 00:27 Hct 32.8 % (37-47) L 03/05/24 00:27 Plt Count 329 K/mm3 (150-450) 03/05/24 00:27 CHEMISTRY Potassium 3.3 mmol/L (3.5-5.1) L 03/05/24 00:27 Sodium 138 mmol/L (136-145) 03/05/24 00:27 BUN 15 mg/dL (7-18) 03/05/24 00:27 Creatinine 1.29 mg/dL (0.55-1.02) H 03/05/24 00:27 Glucose 99 mg/dL (74-106) 03/05/24 00:27 COAG PT 14.7 SECONDS (11.7-14.9) 03/05/24 06:12 Urine Test Negative Negative 03/05/24 00:34 Pre-Assessment Diagnosis/Proposed Procedure Planned Operative Procedure(s): LEFT ESWL Anesthesia History 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 When Was Last Pacemaker Check QUESTION #4 FULL TEXT: You/Your Family Experience fever (hyperthermia) with Anesthesia Last Oral Intake Last Oral intake: Last Oral Intake NPO since Meds taken in AM with sips of water? 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 Female Yes 03/15/24 11:36 HX of Motion Sickness No 03/15/24 11:36 HX of N/V After Surgery No 03/15/24 11:36 Non-Smoker Yes 03/15/24 11:36 Duration of Surgery greater Yes 03/15/24 11:36 than 60 minutes Number of Risk Factors 3 03/15/24 11:36 PONV Score Moderate Risk 03/15/24 11:36 Height & Weight Height & Weight: Anesthesia: Height & Weight Height 5 ft 1 in 03/05/24 09:06 Respiratory Assessment Respiratory Assessment - livestock inspector: Respiratory Tract Infection Hx - livestock inspector Hx Respiratory Tract Infection No 03/15/24 11:36 STOP Sleep Apnea STOP Sleep Apnea - livestock inspector: STOP Sleep Apnea - livestock inspector Hx Hypertension No 03/15/24 11:36 Hx Sleep Apnea No 03/15/24 11:36 CPAP BIPAP Do you snore loudly (louder No 03/15/24 11:36 than talking or can be heard Do you often feel tired/ No 03/15/24 11:36 fatigued/ sleepy during daytime? Has anyone observed you stop No 03/15/24 11:36 breathing during sleep? STOP Results Negative 03/15/24 11:36 QUESTION #5 FULL TEXT : Do you snore loudly (louder than talking or can be heard through closed doors)? 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 Specify any problems Hx of Preganancy in last 3 Yes 03/15/24 11:36 Months Nurse Filling Out Transfusion DSCHRIBER 03/15/24 11:36 & Questions: Date: 03/15/24 03/15/24 11:36 Time: 11:38 03/15/24 11:36 Patient unable to answer at this time (ie. confused, unrespo /Reproduction History /Reproductive History - livestock inspector: /Reproductive Hx- livestock inspector Hx Now No 03/15/24 11:36 Gestational Age (in weeks): EDC: Hx Hx Para Hx Section SAB Yes 03/15/24 11:36 Active Medications Active Medications: Current Medications Generic Name Dose Route Start Last Admin Trade Name Freq PRN Reason Stop Dose Admin Cefazolin Sodium 2 gm/ Sodium 110 mls @ 150 mls/hr 03/21/24 09:25 Chloride IV 03/21/24 10:08 PREOP ONE Lactated Ringer's 1,000 mls @ 15 mls/hr 03/21/24 08:15 IV .Q48H LILO PFSH Medical History Normal breast feeding Wears glasses Low iron Non-smoker Home Medications ?Medication ?Instructions ?Recorded ?Last Taken ?Type ondansetron 4 mg disintegrating 4 mg PO Q8H PRN nausea and 03/05/24 Unknown Rx tablet vomiting #10 tabs Allergy/AdvReac Type Severity Reaction Status Date / Time No Known Allergies Allergy Verified 03/15/24 11:34 Surgical History Hx of cystoscopy Social History Smoking Status: Never smoker Review of Systems (Anesthesia) ROS Narrative System reviewed and no additional complaints, except as documented.
[2024-03-21] MEDS: Lactated Ringers 1,000 ML 15 ML IV (08:25)
[2024-03-21 08:55] LABS: Internal QC Validated? YES +Cl - CLEAR BKGD
[2024-03-21 08:56] LABS: Pregnancy, Urine Negative Negative
[2024-03-21] MEDS: Cefazolin 2 GM in 0.9% Normal Saline (100mL Bag) 100 ML IV (09:20)
--- NOTE | 2024-03-21 09:27 | PCM.OPRPT ---
Problems Associated Problem List Diagnoses (1) Kidney stone: Report of Operation Date of Procedure: 03/21/24 Pre-Operative Diagnosis: Left renal calculus Post-Operative Diagnosis: Same Surgery/Procedure Performed:: Left renal extracorporal shockwave lithotripsy Surgeon: Nichol Gamboa Type of Anesthesia: General Specimen's removed: None Description of Procedure: The patient is a 23-year-old female who underwent a cystoscopy and left ureteral stent insertion for an obstructing left renal calculus 2 weeks ago. She now presents for definitive intervention with extracorporal shockwave lithotripsy. Informed consent was obtained. The patient was taken to the operating room and placed on the lithotripsy table. Anesthesia monitored the head, neck, airway, IV access and vital signs throughout the case. Once anesthesia was appropriately administered, she was aligned with the lithotripter and 3000 shocks were applied to the left renal stone. The stone appeared to be fragmented at the conclusion of the case. There were no complications. She was awakened and taken to the recovery room in good condition. Grafts/Implants Used: None Admit VTE Documentation VTE Present on Admission: Yes VTE Mechan Device Prophylaxis: SCD's VTE Pharm Prophylaxis ordered?: No Reason prophylaxis not ordered:: Treatment Not Indicated
--- NOTE | 2024-03-21 09:28 | DCINST_ITS ---
Discharge Instructions Diet Discharge Diet: No restrictions Activity Discharge Activity: Return to Normal Activity Dressing / Incision Call your doctor if you observe: Fever of 101 or Higher, Inability to urinate and Inability to have a bowel movement Follow Up Care Please Follow Up With: Nichol Gamboa MD When: The office will call to make arrangements for follow up with [facility] in 2-3 weeks. Test Results: Test results from this visit will be discussed in further detail at your follow- up appointment, if applicable. Discharge Plan Admission Attending Provider: Nichol Gamboa Primary Care Provider: Era Reyes Instructions Print Language: Palestinian Discharge Orders/Prescriptions Prescriptions: New oxycodone-acetaminophen [Percocet] 5-325 mg tablet 1 tab PO Q8H PRN (Reason: pain) 3 Days Qty: 10 0RF cephalexin 500 mg capsule 500 mg PO Q12 3 Days Qty: 6 0RF Continued ondansetron 4 mg tablet,disintegrating 4 mg PO Q8H PRN (Reason: nausea and vomiting) Qty: 10 0RF Referrals / Follow Up: Era Reyes MD [Primary Care Provider] - Disposition Disposition (needs filled in before D/C Order can be placed): Home, Self Care
--- NOTE | 2024-03-21 10:49 | PCM.POST.ANE ---
Anesthesia: Postop Eval I Current Vital Signs Temperature: 97.2 F Pulse Rate: 94 Blood Pressure: 124/64 Respiratory Rate: 10 Pulse Ox: 90 Oxygen Delivery Method: Nasal Cannula Oxygen Flow Rate (L/min): 4 Assessment Airway patent: Yes Spontaneous unlabored respirations: Yes Mental status: Calm nausea: No Vomiting: No Anesthesia Complication: No Fluid Hydration Crystalloid volume administer (ml): 1,100 Total IV fluid infused: 1,100 Progress Note Anesthesia document: Postop Eval 1 completed: Yes
--- NOTE | 2024-03-21 10:51 | POSTOPAN2_ITS ---
Anesthesia Postop Eval I Sum Postop Eval Completion status Anesthesia document: Postop Eval 1 completed: Yes Anesthesia Postop Eval I Summary Anesthesia Postop Eval I Summary: Anesthesia Postop Eval I: Assessment Summary Airway patent Yes 03/21/24 10:50 PROFESSOR OF GEOGRAPHY.MDOT Spontaneous unlabored Yes 03/21/24 10:50 PROFESSOR OF GEOGRAPHY.MDOT respirations Mental status Calm 03/21/24 10:50 PROFESSOR OF GEOGRAPHY.MDOT nausea No 03/21/24 10:50 PROFESSOR OF GEOGRAPHY.MDOT Vomiting No 03/21/24 10:50 PROFESSOR OF GEOGRAPHY.MDOT Anesthesia Postop Eval I: Fluid Summary Crystalloid volume administer 1,100 03/21/24 10:50 PROFESSOR OF GEOGRAPHY.MDOT (ml) Colloids volume administered ( ml) Blood Product volume administered (ml) Total IV fluid infused 1,100 03/21/24 10:50 PROFESSOR OF GEOGRAPHY.MDOT Anesthesia Postop Eval I: Summary Notes Anesthesia Complication No 03/21/24 10:50 PROFESSOR OF GEOGRAPHY.MDOT Anesthesia Complication Comment: Post-operative progress note Anesthesia: Postop Eval II Evaluation Mental status: Awake Pain Level: 0 nausea: No Vomiting: No
--- NOTE | 2024-03-21 10:51 | PCM.POSTANE2 ---
Anesthesia Postop Eval I Sum Postop Eval Completion status Anesthesia document: Postop Eval 1 completed: Yes Anesthesia Postop Eval I Summary Anesthesia Postop Eval I Summary: Anesthesia Postop Eval I: Assessment Summary Airway patent Yes 03/21/24 10:50 DAYLIGHT DRILLER.MDOT Spontaneous unlabored Yes 03/21/24 10:50 DAYLIGHT DRILLER.MDOT respirations Mental status Calm 03/21/24 10:50 DAYLIGHT DRILLER.MDOT nausea No 03/21/24 10:50 DAYLIGHT DRILLER.MDOT Vomiting No 03/21/24 10:50 DAYLIGHT DRILLER.MDOT Anesthesia Postop Eval I: Fluid Summary Crystalloid volume administer 1,100 03/21/24 10:50 DAYLIGHT DRILLER.MDOT (ml) Colloids volume administered ( ml) Blood Product volume administered (ml) Total IV fluid infused 1,100 03/21/24 10:50 DAYLIGHT DRILLER.MDOT Anesthesia Postop Eval I: Summary Notes Anesthesia Complication No 03/21/24 10:50 DAYLIGHT DRILLER.MDOT Anesthesia Complication Comment: Post-operative progress note Anesthesia: Postop Eval II Evaluation Mental status: Awake Pain Level: 0 nausea: No Vomiting: No
== END 2024-03-21 13:01 | disposition home or self-care (01) ==
LOC: SDC 07:56 → AC 07:57
PROVIDERS: PCP Family Medicine; Referring Provider Urology; Visit Provider Urology
PROC: (CPT 50590; principal; 2024-03-21 09:15)
DX: N20.0 Calculus of kidney (principal)
CPT/HCPCS: 50590; 00873; 81025; J7120; J2405

== ENCOUNTER → 2024-04-19 | Outpatient (CLI) | payer SELFPAY, OTHER ==
--- NOTE | 2024-04-19 15:06 | RAD_ITS ---
EXAM: XR ABDOMEN, 1 VIEW CLINICAL INDICATION: [facility]- KIDNEY STONE TECHNIQUE: Frontal supine view of the abdomen/pelvis. COMPARISON: No relevant prior studies available. FINDINGS: LOWER THORAX: No acute pathology. GASTROINTESTINAL TRACT: Unremarkable. Non-obstructive. No bowel or stomach distention. ORGANS: Unremarkable as visualized. No organomegaly. No abnormal calcifications. BONES/JOINTS: No acute pathology. SOFT TISSUES: No acute pathology. TUBES, LINES AND DEVICES: Left ureteral stent is in place. RAD/Abdomen Single View IMPRESSION: Nonobstructive bowel gas pattern. Left ureteral stent is in place. Electronically Signed: Mauricio Cardenas MD at 0:11 EDT ,
== END | disposition home or self-care (01) ==
LOC: MTRAD 14:49
PROVIDERS: PCP Family Medicine; Referring Provider Urology; Visit Provider Urology
DX: N20.0 Calculus of kidney (principal)
CPT/HCPCS: 74018

== ENCOUNTER 2025-07-10 09:22 | Emergency (ER) | payer OTHER, SELFPAY ==
[2025-07-10 09:22] VITALS: BP 131/74; PULSE 92; RESP 14; TEMP 36.8; O2SAT 98; BMI 29.2
--- NOTE | 2025-07-10 09:40 | VDLE_ITS ---
Reason For Study Reason For Study: Left leg pain RIGHT LEFT CFV is compressible, spontaneous, phasic, competent GSV is normal. and demonstrates normal augmentation. CFV is compressible, spontaneous, phasic, competent, Procedure and demonstrates normal augmentation. This is a venous duplex using B-mode, color flow and FV is compressible, spontaneous, phasic, competent spectral Doppler. and demonstrates normal augmentation. Exam performed portable in ED. POP V is compressible, spontaneous, phasic, competent A preliminary report was called and/or faxed to and demonstrates normal augmentation. Lawson. T/P Trunk is compressible. PTV is compressible. LT PerV is compressible. VL/Venous Duplex US, Unilateral Interpretation Summary Deep veins of the left lower extremity are patent and compressible segmentally. There is no evidence of left lower extremity deep vein thrombosis. Valvular competence appears intact within the p roximal deep venous system on the left . The left great saphenous vein appears patent and compressible segmentally. The right common femoral vein is patent and compressible . Ordering Physician: Fredrick Pathak Referring Physician: Era Reyes Performed By: Alanis Joel RVT
--- NOTE | 2025-07-10 09:58 | EDS_ITS ---
HPI History of Present Illness Chief Complaint: Abd Pain Narrative Narrative: Chief complaint and HPI: 24-year-old [facility] female with no significant past medical history who is and recently presents for evaluation of left upper thigh pain. Patient states that she had care. Delivered a healthy on 07/06/2025 at a clinic. Vaginal delivery without complications. Patient states for the past couple days she has been having left upper thigh pain. Denies any abdominal or vaginal pain. Denies any vaginal discharge. States she is having intermittent spotting which is normal for her after delivery. She denies any fever, chills, shortness of breath, chest pain, nausea, vomiting. Patient states she also had some pain in her left foot earlier today and is concerned about a DVT. Denies any numbness or tingling. Denies any weakness. Review of systems: See HPI Medications: As listed on the chart Allergies: As listed on the chart PFSH: Per chart Vital signs: As listed on the chart. Reviewed. Physical exam: Gen: A&O x3, NAD Head: Normocephalic, atraumatic Eyes: No sclera icterus, conjunctiva clear ENT: Moist mucous membranes CV: RRR, no murmurs, no peripheral edema Resp: Lungs CTA BL, no w/r/c GI: Abd soft, non-distended, non-tender, no r/r/g : No CVA tenderness Musc: Full ROM, no deformity, Femoral/DP/PT pulses +2 bilaterally, compartments soft, no swelling/warmth/erythema to the lower extremities, left upper thigh is mildly tender to palpation without any signs of trauma or infection Skin: Warm, dry Neuro: Alert, oriented, grossly intact, sensation intact Psych: Cooperative, appropriate mood and affect PFS PFSH Medical History Normal breast feeding Wears glasses Low iron Non-smoker Home Medications ?Medication ?Instructions ?Recorded ?Last Taken ?Type ondansetron 4 mg disintegrating 4 mg PO Q8H PRN nausea and 03/05/24 Unknown Rx tablet vomiting #10 tabs cephalexin 500 mg capsule 500 mg PO Q12 post-operative 3 03/21/24 Unknown Rx days #6 CAPSULES oxycodone-acetaminophen 5 mg-325 1 tab PO Q8H PRN pain 3 days #10 03/21/24 Unknown Rx mg tablet (Percocet) tabs Allergy/AdvReac Type Severity Reaction Status Date / Time No Known Allergies Allergy Verified 03/21/24 08:24 Surgical History Hx of cystoscopy Social History Smoking Status: Never smoker EXAM Physical Exam Const Vital Signs: 07/10/25 09:22 Temperature 98.3 F Temperature Source Temporal Pulse Rate 92 Respiratory Rate 14 Blood Pressure 131/74 H Blood Pressure Mean 93 Pulse Ox 98 Oxygen Delivery Method Room Air MDM MDM MDM Narrative Medical decision making narrative: 24-year-old [facility] female with no significant past medical history who is and recently presents for evaluation of left upper thigh pain. Patient is concerned about DVT. See HPI. Patient denies any abdominal pain, vaginal pain/discharge, or other complaints. See physical exam findings. Abdomen is benign. On presentation patient in no distress, vitals are stable. Differential diagnosis includes but is not limited to myofascial pain from delivery versus DVT. Venous duplex ultrasound ordered. Venous duplex ultrasound negative for DVT. Patient's pain may be secondary to myofascial given recent delivery. Recommended Tylenol and Motrin as needed for pain. Warm compresses. Return back to ED if symptoms change or worsen. Follow-up with primary care physician. She confirmed understand the plan. Patient stable to discharge home. Impression: 1. Left upper thigh pain 2. Discharge Plan Triage Chief Complaint: Abd Pain ED Provider: Fredrick Pathak Dx/Rx/DC Orders Prescriptions: No Action ondansetron 4 mg tablet,disintegrating 4 mg PO Q8H PRN (Reason: nausea and vomiting) Qty: 10 0RF oxycodone-acetaminophen [Percocet] 5-325 mg tablet 1 tab PO Q8H PRN (Reason: pain) 3 Days Qty: 10 0RF cephalexin 500 mg capsule 500 mg PO Q12 3 Days Qty: 6 0RF Primary Care Provider: Era Reyes Referrals: Era Reyes MD [Primary Care Provider, Medical] Print Language: Bulgarian
--- OUTSIDE RECORDS SUMMARY | 2025-07-10 14:55 | XMS RPT_ITS | CCD ---
Author Organization [facility] Inform ion Partnership [facility] Care Team Providers Care Social Work Associate Name Role Phone Enrico MARTINS MD Unavailable [phone] OLY PARMAR MD Unavailable Guillermina Greene LPN Unavailable Unavailable Unavailable Unavailable RADHAMES GAMBOA Unavailable Unavailable Jace Schwartz Attending Unavailable Lit SMITH, Jace Attending Unavailable Jace Schwartz Referring Unavailable Care Physician, No Primary Primary Care Unava ilable Radhames Gamboa Attending Unavailable Era Martins Primary Care Unavailable Radhames Gamboa Referring Unavailable Radhames Gamboa Attending Unavailable Radhames Gamboa Referring Unavailable Era Martins Primary Care Unavailable Mauricio Brown Primary Care Unavailable Shakeel Olguin Attending Unavailable Era Martins Primary Care Unavailable Radhames Gamboa Admitting Unavailable Radhames Gamboa Attending Unavailable LETITIA CONNELL CNM Attending Unavailable LETITIA CONNELL CNM Primary Care Unavailable LETITIA CONNELL CNM Admitting Unavailable LETITIA CONNELL CNM Attending Unavailable LETITIA CONNELL CNM Primary Care Unavailable LETITIA CONNELL CNM Admitting Unavailable Enrico MARTINS Attending Unavailable Enrico MARTINS Primary Care Unavailable Enrico MARTINS Admitting Unavailable LETITIA CONNELL CNM Attending Unavailable LETITIA CONNELL CNM Primary Care Unavailable LETITIA CONNELL CNM Admitting Unavailable RONN VERDUZCO MD Admitting Unavailable BATSHEVA PERAZA MD Consulting Unavailable ALDA CONNORS MD Attending Unavailab le Medications Current Medications Medication Drug Class(es) Dates Sig (Normalized) Sig (Original) cephalexin 500 mg oral tablet (1 source) Cephalosporin Antibacterial Start: 05-31-2025 End: 06-07-2025 cephalexin 500 mg oral tablet Dose : 500 mg = 1 tab(s), PO, QID, X 7 day(s), # 28 tab(s), 0 Refill(s), 06/07/25 1:06:00 PM EDT, Pharmacy: [id number], 155, cm, 05/30/25 21:43:00 EDT, Height, 75.5, kg, 05/30/25 21:43:00 EDT, Dosing Weight Start Date: 05/31/25 Stop Date: 06/07/25 Status: Ordered Medication Dispense Status: Completed Quantity: 28.0 Unit: tab(s) Total Allowed Fills: 1 Fills Dispensed: 0 AD (1 source) Start: 05-30-2025 take 1 tablet by mouth once daily AD Dose = 1 tab(s), Oral, qDay, 0 Refill(s) Start Date: 05/30/25 Status: Ordered Medication Dispense Status: Completed Total Allowed Fills: 1 Fills Dispensed: 0 Completed/Discontinued Medications Medication Drug Class(es) Dates Sig (Normalized) Sig (Original) acetaminophen 325 mg / oxyCODONE hydrochloride 5 mg oral tablet (13 sources) Opioid Agonist Start: 03-04-2024 End: 03-10-2024 take 1 tablet by mouth every six hours as needed Percocet 5 mg-325 mg tablet ; 1 (one) Tablet every six hours, as needed for 6 days Quantity: 24 {Tablet} Refills: 0 Ordered: 04-Mar-2024 MD Enrico MARTINS Start: 04-Mar-2024 End: 10-Mar-2024 Status: Inactive Comments: Medication taken as needed. Comment on above: Medication taken as needed. ondansetron 4 mg disintegrating oral tablet (13 sources) Serotonin-3 Receptor Antagonist Start: 03-04-2024 End: 03-11-2024 ondansetron 4 mg disintegrating tablet ; 1 (one) tablet up to every 8 hours prn nausea for 7 days Quantity: 20 {Tablet} Refills: 0 Ordered: 04-Mar-2024 MD Enrico MARTINS Start: 04-Mar-2024 End: 11-Mar-2024 Status: Inactive tamsulosin hydrochloride 0.4 mg oral capsule (13 sources) alpha-Adrenergic Shellie Start: 03-04-2024 End: 03-18-2024 tamsulosin 0.4 mg capsule ; 1 (one) capsule daily until stone passes for 14 days Quantity: 14 {Capsule} Refills: 0 Ordered: 04-Mar-2024 MD Enrico MARTINS Start: 04-Mar-2024 End: 18-Mar-2024 Status: Inactive Problems Active Problems Problem Classification Problem Date Documented Da te Episodic/Chronic Abdominal pain (20 sources) Left flank pain; Translations: [Unspecified abdominal pain] Onset: 03-12-2024 03-04-2024 Episodic Calculus of urinary tract (20 sources) Ureteric stone; Translations: [Calculus of ureter] Onset: 04-29-2024 03-04-2024 Episodic Nausea and vomiting (20 sources) Nausea; Translations: [Nausea] 03-04-2024 Episodic Other diseases of kidney and ureters (1 source) Hydronephrosis; Translations: [Unspecified hydronephrosis] Onset: 05-31-2025 Episodic Other diseases of kidney and ureters (1 source) Unspecified hydronephrosis; Translations: [Unspecified hydronephrosis] Onset: 05-30-2025 Episodic Urinary tract infections (1 source) Urinary tract infection, site not specified; Translations: [Urinary tract infection, site not specified] Onset: 03-15-2024 Episodic Past or Other Problems Problem Classification Problem Date Documented Da te Episodic/Chronic Other and delivery including normal (1 source) Onset: 08-21-2024 05-30-2025 Episodic Unclassified (13 sources) Follow-up after ER visit - The ER visit was at [facility]. Date:02/29/24. New medicaitons include: Omeprazole 20mg. Note for Follow-up after ER visit: Pt was treated in ER for LUQ pain and vomiting and diagnosed with GERD, Pain is not any beter. Pt is not taking the Omeprazole. Rates pain 03/30. Pt has history of UTI's No hx of kidney stones 03-04-2024 Unclassified (11 sources) !Patient notification of lab results - Dr. Martins. The test(s) that you had done were/was blood work (Creatinine elevated and 1.2 cm kidney stone L prox ureter. D/W H on phone will see Dr. Gamboa tomorrow (work in).). 03-04-2024 Unclassified (1 source) Back Pain Lumbar, Acute - Note for Acute lumbar back pain: Pt c/o low back pain and right side abd pain that started 2 days ago. Some nausea, no vomiting or diarrhea. She c/o burning with urination. Pt is 8 months . Due date is 07/17/25. 05-29-2025 NEGATED: Highlighted row has been ruled out!Unclassified (2 sources) No Problem Information Available Results Test Name Value Interpretation Reference Range Facility .Auto Diffon 05-31-2025 Basophil, Absolute 0.0 10 3/mcL Normal 0.0-0.3 [facility] Comment on above: Performed By: #### C BC, BMP, GFR, ANEU, ADIFF #### [address] [address] Basophils/100 WBC (Bld) 0.4 % Normal 0.0-2.5 [facility] Comment on above: Performed By: #### C BC, BMP, GFR, ANEU, ADIFF #### [address] [address] Eosinophil, Absolute 0.1 10 3/mcL Normal 0.0-0.7 [facility] Comment on above: Performed By: #### C BC, BMP, GFR, ANEU, ADIFF #### [address] [address] Eosinophils/100 WBC (Bld) 1.1 % Normal 0.0-6.0 [facility] Comment on above: Performed By: #### C BC, BMP, GFR, ANEU, ADIFF #### [address] [address] Lymphocyte, Absolute 1.3 10 3/mcL Normal 0.9-4.3 [facility] Comment on above: Performed By: #### C BC, BMP, GFR, ANEU, ADIFF #### [address] [address] Lymphocytes/100 WBC (Bld) 14.1 % Low 20.0-40.0 [facility] Comment on above: Performed By: #### C BC, BMP, GFR, ANEU, ADIFF #### [facility] [address] [place] [address] Monocyte, Absolute 0.6 10 3/mcL Normal 0.1-1.4 [facility] Comment on above: Performed By: #### C BC, BMP, GFR, ANEU, ADIFF #### [address] [address] Monocytes/100 WBC (Bld) 6.7 % Normal 2.0-13.0 [facility] Comment on above: Performed By: #### C BC, BMP, GFR, ANEU, ADIFF #### [address] [address] Neutrophils/100 WBC (Bld) 77.7 % High 50.0-75.0 [facility] Comment on above: Performed By: #### C BC, BMP, GFR, ANEU, ADIFF #### [address] [address] .GFRon 05-31-2025 Estimated Glomerular Filtration Rate 114 ml/min/1.73sqm Normal [facility] Comment on above: Result Comment: Stages of Chronic Kidney Disease (CKD) Stage Description eGFR(ml/min/1.73 sq.m.) CKD 1 Normal kidney function or >=90 normal kindney function with possible kidney damage (ex. Proteinuria) CKD 2 Kidney damage with mild loss 60-89 of kidney function CKD 3a Mild to moderate loss of kidney 45-59 function CKD 3b Moderate to severe loss of 30-44 of kindey function CKD 4 Severe loss of kidney function 15-29 CKD 5 Kidney failure <15 Note: (go live 2024) the eGFR calculation was updated to the 2020 CKD-EPI creatinine equation without a race factor to calculate the eGFR results. Performed By: #### C BC, BMP, GFR, ANEU, ADIFF #### [address] [address] .NEUABSon 05-31-2025 Neutrophil, Absolute 7.4 10 3/mcL Normal 2.3-8.1 [facility] Comment on above: Performed By: #### C BC, BMP, GFR, ANEU, ADIFF #### [address] [address] BMPon 05-31-2025 BUN/Creatinine Ratio 12.0 ratio Normal 10.0-22.0 [facility] Comment on above: Performed By: #### C BC, BMP, GFR, ANEU, ADIFF #### [address] [address] Calcium [Mass/Vol] 8.7 mg/dL Normal 8.7-10.4 [facility] Comment on above: Performed By: #### C BC, BMP, GFR, ANEU, ADIFF #### [address] [address] Chloride [Moles/Vol] 104 mmol/L Normal 98-110 [facility] Comment on above: Performed By: #### C BC, BMP, GFR, ANEU, ADIFF #### [address] [address] CO2 [Moles/Vol] 25 mmol/L Normal 22-32 [facility] Comment on above: Performed By: #### C BC, BMP, GFR, ANEU, ADIFF #### [address] [address] Creatinine [Mass/Vol] 0.75 mg/dL Normal 0.50-1.20 [facility] Comment on above: Result Comment: Test ing performed on Novadiol analyzer using enzymatic creatinine methodology. Performed By: #### C BC, BMP, GFR, ANEU, ADIFF #### [address] [address] Electrolyte Balance 10.0 mEq/L Normal 4.0-15.0 [facility] Comment on above: Performed By: #### C BC, BMP, GFR, ANEU, ADIFF #### [address] [address] Glucose [Mass/Vol] 84 mg/dL Normal 70-110 [facility] Comment on above: Performed By: #### C BC, BMP, GFR, ANEU, ADIFF #### [address] [address] Potassium [Moles/Vol] 3.5 mmol/L Normal 3.5-5.0 [facility] Comment on above: Performed By: #### C BC, BMP, GFR, ANEU, ADIFF #### [place] [address] Sodium [Moles/Vol] 139 mmol/L Normal 136-145 [facility] Comment on above: Performed By: #### C BC, BMP, GFR, ANEU, ADIFF #### [place] [address] Urea nitrogen [Mass/Vol] 9.0 mg/dL Normal 8.0-22.0 [facility] Comment on above: Performed By: #### C BC, BMP, GFR, ANEU, ADIFF #### [place] [address] CBCon 05-31-2025 Erythrocyte distribution width (RBC) [Ratio] 14.1 % Normal 11.5-15.5 [facility] Comment on above: Performed By: #### C BC, BMP, GFR, ANEU, ADIFF #### [place] [address] Hematocrit (Bld) [Volume fraction] 29.5 % Low 34.0-46.0 [facility] Comment on above: Performed By: #### C BC, BMP, GFR, ANEU, ADIFF #### [place] [address] Hgb 10.4 G/dL Low 12.0-16.0 [facility] Comment on above: Performed By: #### C BC, BMP, GFR, ANEU, ADIFF #### [place] [address] MCH (RBC) [Entitic mass] 32.1 pg Normal 27.0-33.0 [facility] Comment on above: Performed By: #### C BC, BMP, GFR, ANEU, ADIFF #### [place] [address] MCHC 35.2 G/dL Normal 32.0-36.0 [facility] Comment on above: Performed By: #### C BC, BMP, GFR, ANEU, ADIFF #### [place] [address] MCV (RBC) [Entitic vol] 91.3 fL Normal 80.0-99.0 [facility] Comment on above: Performed By: #### C BC, BMP, GFR, ANEU, ADIFF #### [place] [id number] [place] [address] Platelet 293 10 3/mcL Normal 150-450 [facility] Comment on above: Performed By: #### C BC, BMP, GFR, ANEU, ADIFF #### [facility] [address] [place] [address] Platelet mean volume (Bld) [Entitic vol] 7.2 fL Normal 6.6-10.5 [facility] Comment on above: Performed By: #### C BC, BMP, GFR, ANEU, ADIFF #### [place] [address] [place] [address] RBC 3.23 10 6/mcL Low 4.10-5.30 [facility] Comment on above: Performed By: #### C BC, BMP, GFR, ANEU, ADIFF #### [place] [address] [place] [address] WBC 9.5 10 3/mcL Normal 4.5-10.8 [facility] Comment on above: Performed By: #### C BC, BMP, GFR, ANEU, ADIFF #### [address] [address] LABORATORYOrdered By: SYSTEM SYSTEM on 05-31-2025 Basophils (Bld) [#/Vol] 0.0 103/mcL Normal 0.0 - 0.3 10^3/mcL AH Workflow SS Basophils/100 WBC (Bld) 0.4 % Normal 0.0 - 2.5 % AH Workflow SS Calcium [Mass/Vol] 8.7 mg/dL Normal 8.7 - 10. 4 mg/dL AH ADM SS Chloride [Moles/Vol] 104 mmol/L Normal 98 - 11 0 mEq/L AH ADM SS CO2 [Moles/Vol] 25 mmol/L Normal 22 - 32 mEq/L AH ADM SS Creatinine [Mass/Vol] 0.75 mg/dL Normal 0.50 - 1.20 mg/dL AH ADM SS Comment on above: Interpretive Data: T esting performed on Novadiol analyzer using enzymatic creatinine methodology. Electrolyte Balance 10.0 mEq/L Normal 4.0 - 15 .0 mEq/L ADM SS Eosinophils (Bld) [#/Vol] 0.1 103/mcL Normal 0.0 - 0.7 10^3/mcL Workflow SS Eosinophils/100 WBC (Bld) 1.1 % Normal 0.0 - 6.0 % AH Workflow SS Erythrocyte distribution width (RBC) [Ratio] 14.1 % Normal 11.5 - 15.5 % Workflow SS GLOMERULAR FILTRATION RATE/1.73 SQ M.PREDICTED:ARVRAT:PT :SER/PLAS/BLD:QN:CREA TININE-BASED FORMULA (CKD-EPI 2020) 114 ml/min/1.73sqm Invalid Interpretation Code Chemistry S Comment on above: Interpretive Data: Stages of Chronic Kidney Disease (CKD) Stage Description eGFR(ml/min/1.73 sq.m.) CKD 1 Normal kidney function or >=90 normal kindney function with possible kidney damage (ex. Proteinuria) CKD 2 Kidney damage with mild loss 60-89 of kidney function CKD 3a Mild to moderate loss of kidney 45-59 function CKD 3b Moderate to severe loss of 30-44 of kindey function CKD 4 Severe loss of kidney function 15-29 CKD 5 Kidney failure <15 Note: (go live 2024) the eGFR calculation was updated to the 2020 CKD-EPI creatinine equation without a race factor to calculate the eGFR results. Glucose [Mass/Vol] 84 mg/dL Normal 70 - 110 mg/dL ADM SS Hematocrit (Bld) [Volume fraction] 29.5 % Low 34.0 - 46.0 % Workflow SS Hemoglobin (Bld) [Mass/Vol] 10.4 G/dL Low 12.0 - 16.0 G/dL Workflow SS Lymphocytes (Bld) [#/Vol] 1.3 103/mcL Normal 0.9 - 4.3 10^3/mcL Workflow SS Lymphocytes/100 WBC (Bld) 14.1 % Low 20.0 - 40.0 % Workflow SS MCH (RBC) [Entitic mass] 32.1 pg Normal 27.0 - 33.0 pg Workflow SS MCHC 35.2 G/dL Normal 32.0 - 36.0 G/dL Workflow SS MCV (RBC) [Entitic vol] 91.3 fL Normal 80.0 - 99.0 fL Workflow SS Monocytes (Bld) [#/Vol] 0.6 103/mcL Normal 0.1 - 1.4 10^3/mcL AH Workflow SS Monocytes/100 WBC (Bld) 6.7 % Normal 2.0 - 13.0 % AH Workflow SS Neutrophils (Bld) [#/Vol] 7.4 103/mcL Normal 2.3 - 8.1 10^3/mcL AH Workflow SS Neutrophils/100 WBC (Bld) 77.7 % High 50.0 - 75.0 % AH Workflow SS Platelet mean volume (Bld) [Entitic vol] 7.2 fL Normal 6.6 - 10.5 fL Workflow SS Platelets (Bld) [#/Vol] 293 103/mcL Normal 150 - 450 10^3/mcL AH Workflow SS Potassium [Moles/Vol] 3.5 mmol/L Normal 3.5 - 5.0 mEq/L ADM SS RBC (Bld) [#/Vol] 3.23 106/mcL Low 4.10 - 5.3 0 10^6/mcL AH Workflow SS Sodium [Moles/Vol] 139 mmol/L Normal 136 - 145 mEq/L ADM SS Urea nitrogen [Mass/Vol] 9.0 mg/dL Normal 8.0 - 22.0 mg/dL ADM SS Urea nitrogen/Creatinine [Mass ratio] 12.0 ratio Normal 10.0 - 22.0 ratio ADM SS WBC (Bld) [#/Vol] 9.5 103/mcL Normal 4.5 - 10.8 10^3/mcL Workflow SS UAon 05-31-2025 Color (U) Yellow Normal [facility] Comment on above: Performed By: #### C BC, BMP, GFR, ANEU, ADIFF #### [address] [address] Glucose (U) [Mass/Vol] Negative Normal Negative [facility] Comment on above: Performed By: #### C BC, BMP, GFR, ANEU, ADIFF #### [address] [address] Ketones Ql (U) Negative Normal Neg-Trace [facility] Comment on above: Performed By: #### C BC, BMP, GFR, ANEU, ADIFF #### [address] [address] UA Appear Clear Normal Clear [facility] Comment on above: Performed By: #### C BC, BMP, GFR, ANEU, ADIFF #### [address] [address] UA Blood Trace Normal Neg-Trace [facility] Comment on above: Performed By: #### C BC, BMP, GFR, ANEU, ADIFF #### [place] [address] UA Leuk Est Trace Normal Negative [facility] Comment on above: Performed By: #### C BC, BMP, GFR, ANEU, ADIFF #### [place] [id number] UA Nitrite Negative Normal Negative [facility] Comment on above: Performed By: #### C BC, BMP, GFR, ANEU, ADIFF #### [place] [id number] UA pH 7.5 Normal 5.0 - 8.0 [facility] Comment on above: Performed By: #### C BC, BMP, GFR, ANEU, ADIFF #### [place] [id number] UA Protein Negative Normal Negative [facility] Comment on above: Performed By: #### C BC, BMP, GFR, ANEU, ADIFF #### [place] [id number] UA Spec Grav 1.015 Normal 1.006-1.029 [facility] Comment on above: Performed By: #### C BC, BMP, GFR, ANEU, ADIFF #### [place] [id number] UA Specimen Type Straight Cath Normal [facility] Comment on above: Performed By: #### C BC, BMP, GFR, ANEU, ADIFF #### [place] [id number] UA Urobilinogen 0.2 E.U./dL Normal 0.2-1.0 [facility] Comment on above: Performed By: #### C BC, BMP, GFR, ANEU, ADIFF #### [facility] [address] [place] [address] Urobilinogen (U) [Mass/Vol] Negative Normal Neg-Trace [facility] Comment on above: Performed By: #### C BC, BMP, GFR, ANEU, ADIFF #### [facility] [address] [place] [address] URINE CULTURE [CCL]on 2024 Bacteria identified Cx Nom (U) URCUL See Results Below See Below CULTURE, URINE NORMAL UROGENITAL RICK 10,000 -<50,000 CFU/ml Normal urogenital rick SOURCE: Urine (Nonspecific) [place] [address] Jcarlos Kumar III, M.D. [id number] SEND TO IC NO Normal [facility] Comment on above: Performed By: #### 2 [id number] #### [facility],[address] [place] [address] US RENALon 05-31-2025 US RENAL ORIGINAL EXAMINATION: ULTRASOUND OF THE KIDNEYS 05/30/2025 11:59 pm COMPARISON: None. HISTORY: ORDERING SYSTEM PROVIDED HISTORY: Reason for Exam: with kidney stones, right sided pain FINDINGS: The right kidney measures 13 in length and the left kidney measures 12.2 cm in length. Kidneys demonstrate normal cortical echogenicity. There is an echogenic shadowing 1 cm calculus at the right UVJ with associated moderate right hydronephrosis. At the inferior pole of the left kidney there is an echogenic 1.3 cm shadowing calculus with mild left pelviectasis. Bladder volume of 120 mL and no significant postvoid residual. Nonvisualization of the right ureter jet. IMPRESSION: 1 cm calculus at the right UVJ with nonvisualization of the right ureter jet. 1.3 cm calculus at the inferior pole of the left kidney with mild pelviectasis. Moderate right hydronephrosis. Interpreted by: Nataliia Fischer Preliminary Report By: Nataliia Fischer Electronically signed By Nataliia Fischer Dictated Date: 05/31/2025 8:04:12 AM Prelim Date: 05/31/2025 8:07:00 AM Sign Date: 05/31/2025 8:07:00 AM Ordering Provider: CANDIS BOYD RP Normal [facility] .Auto Diffon 05-30-2025 Basophil, Absolute 0.0 10 3/mcL Normal 0.0-0.3 [facility] Comment on above: Performed By: #### A JOSE ANGEL, CBC, ADIFF, CMP, GFR #### [address] [address] Basophils/100 WBC (Bld) 0.3 % Normal 0.0-2.5 [facility] Comment on above: Performed By: #### A JOSE ANGEL, CBC, ADIFF, CMP, GFR #### [address] [address] Eosinophil, Absolute 0.1 10 3/mcL Normal 0.0-0.7 [facility] Comment on above: Performed By: #### A JOSE ANGEL, CBC, ADIFF, CMP, GFR #### [address] [address] Eosinophils/100 WBC (Bld) 0.7 % Normal 0.0-6.0 [facility] Comment on above: Performed By: #### A JOSE ANGEL, CBC, ADIFF, CMP, GFR #### [address] [address] Lymphocyte, Absolute 1.5 10 3/mcL Normal 0.9-4.3 [facility] Comment on above: Performed By: #### A JOSE ANGEL, CBC, ADIFF, CMP, GFR #### [address] [address] Lymphocytes/100 WBC (Bld) 12.5 % Low 20.0-40.0 [facility] Comment on above: Performed By: #### A JOSE ANGEL, CBC, ADIFF, CMP, GFR #### [address] [address] Monocyte, Absolute 0.6 10 3/mcL Normal 0.1-1.4 [facility] Comment on above: Performed By: #### A JOSE ANGEL, CBC, ADIFF, CMP, GFR #### [address] [address] Monocytes/100 WBC (Bld) 5.3 % Normal 2.0-13.0 [facility] Comment on above: Performed By: #### A JOSE ANGEL, CBC, ADIFF, CMP, GFR #### [address] [address] Neutrophils/100 WBC (Bld) 81.2 % High 50.0-75.0 [facility] Comment on above: Performed By: #### A JOSE ANGEL, CBC, ADIFF, CMP, GFR #### [address] [address] .GFRon 05-30-2025 Estimated Glomerular Filtration Rate 81 ml/min/1.73sqm Normal [facility] Comment on above: Result Comment: Stages of Chronic Kidney Disease (CKD) Stage Description eGFR(ml/min/1.73 sq.m.) CKD 1 Normal kidney function or >=90 normal kindney function with possible kidney damage (ex. Proteinuria) CKD 2 Kidney damage with mild loss 60-89 of kidney function CKD 3a Mild to moderate loss of kidney 45-59 function CKD 3b Moderate to severe loss of 30-44 of kindey function CKD 4 Severe loss of kidney function 15-29 CKD 5 Kidney failure <15 Note: (go live 2024) the eGFR calculation was updated to the 2020 CKD-EPI creatinine equation without a race factor to calculate the eGFR results. Performed By: #### A JOSE ANGEL, CBC, ADIFF, CMP, GFR #### [address] [address] .NEUABSon 05-30-2025 Neutrophil, Absolute 9.8 10 3/mcL High 2.3-8.1 [facility] Comment on above: Performed By: #### A JOSE ANGEL, CBC, ADIFF, CMP, GFR #### [address] [address] ABO/Rh (Gel)on 05-30-2025 ABO/Rh Interp Positive Invalid Interpretation Code [facility] Comment on above: Performed By: #### C BC, BMP, GFR, ANEU, ADIFF #### [address] [address] ABS (Gel)on 10-10-2025 ABSC Interp (Gel) Negative Normal [facility] Comment on above: Performed By: #### C BC, BMP, GFR, ANEU, ADIFF #### [place] [id number] CBCon 05-30-2025 Erythrocyte distribution width (RBC) [Ratio] 14.1 % Normal 11.5-15.5 [facility] Comment on above: Performed By: #### A JOSE ANGEL, CBC, ADIFF, CMP, GFR #### [place] [id number] Hematocrit (Bld) [Volume fraction] 29.6 % Low 34.0-46.0 [facility] Comment on above: Performed By: #### A JOSE ANGEL, CBC, ADIFF, CMP, GFR #### [place] [address] Hgb 10.3 G/dL Low 12.0-16.0 [facility] Comment on above: Performed By: #### A JOSE ANGEL, CBC, ADIFF, CMP, GFR #### [place] [address] MCH (RBC) [Entitic mass] 31.6 pg Normal 27.0-33.0 [facility] Comment on above: Performed By: #### A JOSE ANGEL, CBC, ADIFF, CMP, GFR #### [place] [id number] MCHC 34.9 G/dL Normal 32.0-36.0 [facility] Comment on above: Performed By: #### A JOSE ANGEL, CBC, ADIFF, CMP, GFR #### [place] [address] MCV (RBC) [Entitic vol] 90.7 fL Normal 80.0-99.0 [facility] Comment on above: Performed By: #### A JOSE ANGEL, CBC, ADIFF, CMP, GFR #### [place] [id number] Platelet 278 10 3/mcL Normal 150-450 [facility] Comment on above: Performed By: #### A JOSE ANGEL, CBC, ADIFF, CMP, GFR #### [facility] [address] [place], [place] [address] Platelet mean volume (Bld) [Entitic vol] 7.5 fL Normal 6.6-10.5 [facility] Comment on above: Performed By: #### A JOSE ANGEL, CBC, ADIFF, CMP, GFR #### [facility] [address] [place] [address] RBC 3.26 10 6/mcL Low 4.10-5.30 [facility] Comment on above: Performed By: #### A JOSE ANGEL, CBC, ADIFF, CMP, GFR #### [facility] [address] [place] [address] WBC 12.1 10 3/mcL High 4.5-10.8 [facility] Comment on above: Performed By: #### A JOSE ANGEL, CBC, ADIFF, CMP, GFR #### [facility] [address] [place] [address] CBC + DIFFon 05-30-2025 Baso # 0.02 [id number]/UL Normal 0.00 - 0.10 [facility] Comment on above: Performed By: #### 2 [address] #### [facility],[address] [place] [address] Basophils/100 WBC (Bld) 0.1 % Normal 0.0 - 2.0 [facility] Comment on above: Performed By: #### 2 38584 #### [facility],[address] [place] [address] 89945 CBC + DIFF Normal [facility] Comment on above: Result Comment: CBC- COMPLETE BLOOD COUNT Performed By: #### 2 15407 #### [facility],[address] [place] [address] 35727 EO # 0.13 x10EE3/UL Normal 0.00 - 0.50 [facility] Comment on above: Performed By: #### 2 90851 #### [facility],[address] [place] [address] 16780 Eosinophils/100 WBC (Bld) 1.0 % Normal 0.0 - 7.0 [facility] Comment on above: Performed By: #### 2 65763 #### [facility],[address] [place], [place] [id number] Erythrocyte distribution width (RBC) [Ratio] 13.0 % Normal 12.0 - 15.6 [facility] Comment on above: Performed By: #### 2 11227 #### [facility],[address] [place] [address] Hematocrit (Bld) [Volume fraction] 30.3 % Low 34.0 - 46.0 [facility] Comment on above: Performed By: #### 2 40473 #### [facility],[address] [place] [address] Hemoglobin (Bld) [Mass/Vol] 10.5 g/dL Low 12.0 - 16.0 [facility] Comment on above: Performed By: #### 2 54749 #### [facility],[address] [place] [address] Lymph # 1.26 x10EE3/UL Normal 0.80 - 2.80 [facility] Comment on above: Performed By: #### 2 97072 #### [facility],[address] [place] [address] Lymphocytes/100 WBC (Bld) 9.5 % Low 20.0 - 45.0 [facility] Comment on above: Performed By: #### 2 14108 #### [facility],[address] [place], [place] [id number] MANUAL DIFF N/A Normal [facility] Comment on above: Performed By: #### 2 55924 #### [facility],[address] [place], [place] [id number] MCH (RBC) [Entitic mass] 32 pg Normal 27 - 33 [facility] Comment on above: Performed By: #### 2 49862 #### [place] [address] MCHC 35 X10 3 Normal 32 - 36 [facility] Comment on above: Performed By: #### 2 34641 #### [facility],[address] [place] [address] 81740 MCV (RBC) [Entitic vol] 91 fL Normal 80 - 99 [facility] Comment on above: Performed By: #### 2 82206 #### [facility],[address] [place] [address] 43500 Mchenry # 0.76 x10EE3/UL Normal 0.20 - 1.00 [facility] Comment on above: Performed By: #### 2 36548 #### [facility],[address] [place] [address] 03423 MONOS % 5.7 % Normal 0.0 - 10.0 [facility] Comment on above: Performed By: #### 2 10433 #### [facility],[address] [place] [address] 86248 Morphology Jasbir (Bld) [Interp] N/A Normal [facility] Comment on above: Performed By: #### 2 43053 #### [facility],[address] [place] [address] 03724 Neut # 11.11 x10EE3/UL High 1.50 - 7.10 [facility] Comment on above: Performed By: #### 2 83768 #### [facility],[address] [place] [address] 79579 Neutrophils/100 WBC (Bld) 83.7 % High 46.0 - 76.0 [facility] Comment on above: Performed By: #### 2 39091 #### [facility],[address] [place] [address] 61665 PLATELET 282 x10EE3/UL Normal 150 - 450 [facility] Comment on above: Performed By: #### 2 45419 #### [facility],[address] [place] [address] 61503 Platelet mean volume (Bld) [Entitic vol] 7.1 fL Normal 6.6 - 10.5 [facility] Comment on above: Result Comment: AUTO MATED DIFFERENTIAL Performed By: #### 2 68767 #### [facility],[address] [place] [address] 14386 RBC 3.33 x 10EE6/UL Low 4.10 - 5.30 [facility] Comment on above: Performed By: #### 2 97294 #### [facility],[address] [place] [address] 17016 WBC 13.3 x 10EE3/UL High 4.5 - 10.8 [facility] Comment on above: Performed By: #### 2 03239 #### [facility],[address] [place], [place] [id number] CMPon 05-30-2025 Albumin Level 2.6 G/dL Low 3.2-4.8 [facility] Comment on above: Performed By: #### A JOSE ANGEL, CBC, ADIFF, CMP, GFR #### [address] [address] Albumin/Globulin [Mass ratio] 0.7 {ratio} Low 0.9-1.6 [facility] Comment on above: Performed By: #### A JOSE ANGEL, CBC, ADIFF, CMP, GFR #### [address] [address] ALP [Catalytic activity/Vol] 119 U/L Normal 38-126 [facility] Comment on above: Performed By: #### A JOSE ANGEL, CBC, ADIFF, CMP, GFR #### [address] [address] ALT/SGPT <7 Low 10-49 [facility] Comment on above: Performed By: #### A JOSE ANGEL, CBC, ADIFF, CMP, GFR #### [address] [address] AST [Catalytic activity/Vol] 10 U/L Normal 8-34 [facility] Comment on above: Performed By: #### A JOSE ANGEL, CBC, ADIFF, CMP, GFR #### [address] [address] Bili Total 0.40 mg/dL Normal 0.20-1.20 [facility] Comment on above: Result Comment: Use of this assay is not recommended for patients undergoing treatment with eltrombopag due to the potential for falsely elevated results. Performed By: #### A JOSE ANGEL, CBC, ADIFF, CMP, GFR #### [address] [address] BUN/Creatinine Ratio 11.0 ratio Normal 10.0-22.0 [facility] Comment on above: Performed By: #### A JOSE ANGEL, CBC, ADIFF, CMP, GFR #### [address] [address] Calcium [Mass/Vol] 9.0 mg/dL Normal 8.7-10.4 [facility] Comment on above: Performed By: #### A JOSE ANGEL, CBC, ADIFF, CMP, GFR #### [address] [address] Chloride [Moles/Vol] 104 mmol/L Normal 98-110 [facility] Comment on above: Performed By: #### A JOSE ANGEL, CBC, ADIFF, CMP, GFR #### [address] [address] CO2 [Moles/Vol] 26 mmol/L Normal 22-32 [facility] Comment on above: Performed By: #### A JOSE ANGEL, CBC, ADIFF, CMP, GFR #### [address] [address] Creatinine [Mass/Vol] 1.00 mg/dL Normal 0.50-1.20 [facility] Comment on above: Result Comment: Test ing performed on Novadiol analyzer using enzymatic creatinine methodology. Performed By: #### A JOSE ANGEL, CBC, ADIFF, CMP, GFR #### [address] [address] Electrolyte Balance 9.0 mEq/L Normal 4.0-15.0 [facility] Comment on above: Performed By: #### A JOSE ANGEL, CBC, ADIFF, CMP, GFR #### [address] [address] Globulin 3.6 G/dL Normal 2.5-4.2 [facility] Comment on above: Performed By: #### A JOSE ANGEL, CBC, ADIFF, CMP, GFR #### [address] [address] Glucose [Mass/Vol] 138 mg/dL High 70-110 [facility] Comment on above: Performed By: #### A JOSE ANGEL, CBC, ADIFF, CMP, GFR #### [address] [address] Potassium [Moles/Vol] 3.1 mmol/L Low 3.5-5.0 [facility] Comment on above: Performed By: #### A JOSE ANGEL, CBC, ADIFF, CMP, GFR #### [address] [address] Sodium [Moles/Vol] 139 mmol/L Normal 136-145 [facility] Comment on above: Performed By: #### A JOSE ANGEL, CBC, ADIFF, CMP, GFR #### [place] [id number] Total Protein 6.2 G/dL Normal 5.7-8.2 [facility] Comment on above: Performed By: #### A JOSE ANGEL, CBC, ADIFF, CMP, GFR #### [address] [address] Urea nitrogen [Mass/Vol] 11.0 mg/dL Normal 8.0-22.0 [facility] Comment on above: Performed By: #### A JOSE ANGEL, CBC, ADIFF, CMP, GFR #### [address] [address] CMP with eGFRon 05-30-2025 AGE 24 years Normal [facility] Comment on above: Performed By: #### 2 22705 #### [facility],[address] [place] [address]67[address] Albumin [Mass/Vol] 2.2 g/dL Low 3.4 - 5.0 [facility] Comment on above: Performed By: #### 2 60194 #### [facility],[address] [place] [address] 6[address] Albumin/Globulin [Mass ratio] 0.6 {ratio} Low 0.9 - 1.6 [facility] Comment on above: Performed By: #### 2 53950 #### [facility],[address] [place] [address] 14454 ALK PHOS 127 U/L High 46 - 116 [facility] Comment on above: Performed By: #### 2 28110 #### [facility],[address] [place], [place] [address] ALT [Catalytic activity/Vol] 2 U/L Low 16 - 63 [facility] Comment on above: Performed By: #### 2 33592 #### [facility],[address] [place] [address] Anion gap [Moles/Vol] 15 mmol/L Normal 10 - 20 [facility] Comment on above: Performed By: #### 2 01802 #### [facility],[address] [place], [place] [address] AST [Catalytic activity/Vol] 25 U/L Normal 13 - 39 [facility] Comment on above: Performed By: #### 2 67540 #### [facility],[address] [place] [address] B/C RATIO 12 ratio Normal 0 - 30 [facility] Comment on above: Performed By: #### 2 60148 #### [facility],[address] [place] [address] 18885 Bilirubin [Mass/Vol] 0.5 mg/dL Normal 0.2 - 1.0 [facility] Comment on above: Performed By: #### 2 67258 #### [facility],[address] [place] [address] 64949 Calcium [Mass/Vol] 8.3 mg/dL Low 8.5 - 10.1 [facility] Comment on above: Performed By: #### 2 74337 #### [facility],[address] [place] [address] 32640 Chloride [Moles/Vol] 105 mmol/L Normal 98 - 107 [facility] Comment on above: Performed By: #### 2 71512 #### [facility],[address] [place] [address] 11673 CMP with eGFR Normal [facility] Comment on above: Result Comment: COMP REHENSIVE METABOLIC PANEL Performed By: #### 2 38072 #### [address] [address] CO2 [Moles/Vol] 21.0 mmol/L Normal 21.0 - 32.0 [facility] Comment on above: Performed By: #### 2 28904 #### [facility],[address] [place] [address] Creatinine [Mass/Vol] 0.84 mg/dL Normal 0.55 - 1.02 [facility] Comment on above: Performed By: #### 2 11846 #### [facility],[address] [place], [place] [address] GFR/1.73 sq M.predicted among non-blacks MDRD (S/P/Bld) [Vol rate/Area] mL/min/{1.73_m2} Normal 60 - 999 [facility] Comment on above: Performed By: #### 2 42332 #### [place] [address] Result Comment: ACCO RDING TO THE NATIONAL KIDNEY DISEASE EDUCATION PROGRAM(NKDE), A NORMAL eGFR IS A VALUE GREATER THAN OR EQUAL TO 60 ML/MIN/1.73 SQ METERS. CHRONIC KIDNEY DISEASE: <60mL/MIN/1.73 SQ METERS KIDNEY FAILURE: <15mL/MIN/1.73 SQ METERS THIS TEST SHOULD ONLY BE USED FOR PATIENTS 18 YEARS OF AGE AND OLDER. Globulin (S) [Mass/Vol] 3.9 g/dL High 1.5 - 3.8 [facility] Comment on above: Performed By: #### 2 27061 #### [facility],[address],[place] [address] Glucose [Mass/Vol] 68 mg/dL Low 74 - 106 [facility] Comment on above: Performed By: #### 2 89125 #### [facility],[address] [place] [address] Potassium [Moles/Vol] 4.1 mmol/L Normal 3.5 - 5.1 [facility] Comment on above: Performed By: #### 2 54224 #### [facility],[address] [place] [address] 23863 Protein [Mass/Vol] 6.1 g/dL Low 6.4 - 8.2 [facility] Comment on above: Performed By: #### 2 81581 #### [facility],[address] [place] [address] 95593 Sodium [Moles/Vol] 137 mmol/L Normal 136 - 145 [facility] Comment on above: Performed By: #### 2 46891 #### [facility],[address] [place], [place] [address] Urea nitrogen [Mass/Vol] 10 mg/dL Normal 7 - 18 [facility] Comment on above: Performed By: #### 2 88494 #### [facility],[address] [place], [place] [id number] LABORATORYOrdered By: Alanis Bashir on 05-30-2025 Appearance (U) Clear (05/30/25 11:22 PM) Normal Clear Auto Urine SS Bilirubin Ql (U) Negative (05/30/25 11:22 PM) Normal Neg-Trace AH Auto Urine SS Color (U) Yellow (05/30/25 11:22 PM) Normal AH Auto Urine SS Glucose Test strip (U) [Mass/Vol] Negative Normal Negative AH Auto Urine SS Hemoglobin Auto test strip (U) [Mass/Vol] Trace (05/30/25 11:22 PM) Normal Neg-Trace AH Auto Urine SS Ketones Ql (U) Negative Normal Neg-Trace AH Auto Ur ine SS UA Leuk Est Trace *NA* (05/30/25 11:22 PM) Invalid Interpretation Code Negative AH Auto Urine SS UA Nitrite Negative (05/30/25 11:22 PM) Normal Negative AH Auto Urine SS UA pH 7.5 (05/30/25 11:22 PM) Normal 5.0 - 8.0 AH Auto Urine SS UA Protein Negative Normal Negative AH Auto Urine SS UA Spec Grav 1.015 (05/30/25 11:22 PM) Normal 1.006-1.029 AH Auto Urine SS UA Specimen Type Straight Cath (05/30/25 11:22 PM) Normal AH Auto Urine SS UA Urobilinogen 0.2 E.U./dL Normal 0.2-1.0 AH Auto Urine SS LABORATORYOrdered By: Barrie Hartmann on 05-30-2025 ABO and Rh group Nom (Bld) Blood group O Rh(D) positive Invalid Interpretation Code AH BB Auto SS Blood group antibody screen Ql Negative ABSC (05/30/25 10:40 PM) Normal AH BB Auto SS LABORATORYOrdered By: SYSTEM SYSTEM on 05-30-2025 Albumin BCP dye [Mass/Vol] 2.6 G/dL Low 3.2 - 4.8 G/dL AH ADM SS Albumin/Globulin [Mass ratio] 0.7 {ratio} Low 0.9 - 1.6 ratio AH ADM SS ALP [Catalytic activity/Vol] 119 U/L Normal 38 - 126 U/L AH ADM SS ALT No additional P-5'-P [Catalytic activity/Vol] U/L 1 Low 10 - 49 U/L AH ADM SS AST [Catalytic activity/Vol] 10 U/L Normal 8 - 34 U/L AH ADM SS Basophils (Bld) [#/Vol] 0.0 103/mcL Normal 0.0 - 0.3 10^3/mcL AH Workflow SS Basophils/100 WBC (Bld) 0.3 % Normal 0.0 - 2.5 % AH Workflow SS Bilirubin [Mass/Vol] 0.40 mg/dL Normal 0.20 - 1.20 mg/dL AH ADM SS Comment on above: Interpretive Data: U se of this assay is not recommended for patients undergoing treatment with eltrombopag due to the potential for falsely elevated results. Calcium [Mass/Vol] 9.0 mg/dL Normal 8.7 - 10. 4 mg/dL AH ADM SS Chloride [Moles/Vol] 104 mmol/L Normal 98 - 11 0 mEq/L AH ADM SS CO2 [Moles/Vol] 26 mmol/L Normal 22 - 32 mEq/L ADM SS Creatinine [Mass/Vol] 1.00 mg/dL Normal 0.50 - 1.20 mg/dL ADM SS Comment on above: Interpretive Data: T esting performed on Novadiol analyzer using enzymatic creatinine methodology. Electrolyte Balance 9.0 mEq/L Normal 4.0 - 15 .0 mEq/L ADM SS Eosinophils (Bld) [#/Vol] 0.1 103/mcL Normal 0.0 - 0.7 10^3/mcL Workflow SS Eosinophils/100 WBC (Bld) 0.7 % Normal 0.0 - 6.0 % Workflow SS Erythrocyte distribution width (RBC) [Ratio] 14.1 % Normal 11.5 - 15.5 % Workflow SS Globulin 3.6 G/dL Normal 2.5 - 4.2 G/dL ADM SS GLOMERULAR FILTRATION RATE/1.73 SQ M.PREDICTED:ARVRAT:PT :SER/PLAS/BLD:QN:CREA TININE-BASED FORMULA (CKD-EPI 2020) 81 ml/min/1.73sqm Invalid Interpretation Code Chemistry S Comment on above: Interpretive Data: Stages of Chronic Kidney Disease (CKD) Stage Description eGFR(ml/min/1.73 sq.m.) CKD 1 Normal kidney function or >=90 normal kindney function with possible kidney damage (ex. Proteinuria) CKD 2 Kidney damage with mild loss 60-89 of kidney function CKD 3a Mild to moderate loss of kidney 45-59 function CKD 3b Moderate to severe loss of 30-44 of kindey function CKD 4 Severe loss of kidney function 15-29 CKD 5 Kidney failure <15 Note: (go live 2024) the eGFR calculation was updated to the 2020 CKD-EPI creatinine equation without a race factor to calculate the eGFR results. Glucose [Mass/Vol] 138 mg/dL High 70 - 110 mg/dL ADM SS Hematocrit (Bld) [Volume fraction] 29.6 % Low 34.0 - 46.0 % Workflow SS Hemoglobin (Bld) [Mass/Vol] 10.3 G/dL Low 12.0 - 16.0 G/dL Workflow SS Lymphocytes (Bld) [#/Vol] 1.5 103/mcL Normal 0.9 - 4.3 10^3/mcL AH Workflow SS Lymphocytes/100 WBC (Bld) 12.5 % Low 20.0 - 40.0 % AH Workflow SS MCH (RBC) [Entitic mass] 31.6 pg Normal 27.0 - 33.0 pg AH Workflow SS MCHC 34.9 G/dL Normal 32.0 - 36.0 G/dL AH Workflow SS MCV (RBC) [Entitic vol] 90.7 fL Normal 80.0 - 99.0 fL AH Workflow SS Monocytes (Bld) [#/Vol] 0.6 103/mcL Normal 0.1 - 1.4 10^3/mcL AH Workflow SS Monocytes/100 WBC (Bld) 5.3 % Normal 2.0 - 13.0 % AH Workflow SS Neutrophils (Bld) [#/Vol] 9.8 103/mcL High 2.3 - 8.1 10^3/mcL AH Workflow SS Neutrophils/100 WBC (Bld) 81.2 % High 50.0 - 75.0 % AH Workflow SS Platelet mean volume (Bld) [Entitic vol] 7.5 fL Normal 6.6 - 10.5 fL AH Workflow SS Platelets (Bld) [#/Vol] 278 103/mcL Normal 150 - 450 10^3/mcL AH Workflow SS Potassium [Moles/Vol] 3.1 mmol/L Low 3.5 - 5.0 mEq/L AH ADM SS Protein [Mass/Vol] 6.2 G/dL Normal 5.7 - 8.2 G/dL AH ADM SS RBC (Bld) [#/Vol] 3.26 106/mcL Low 4.10 - 5.3 0 10^6/mcL AH Workflow SS Sodium [Moles/Vol] 139 mmol/L Normal 136 - 145 mEq/L AH ADM SS Urea nitrogen [Mass/Vol] 11.0 mg/dL Normal 8.0 - 22.0 mg/dL AH ADM SS Urea nitrogen/Creatinine [Mass ratio] 11.0 ratio Normal 10.0 - 22.0 ratio AH ADM SS WBC (Bld) [#/Vol] 12.1 103/mcL High 4.5 - 10.8 10^3/mcL AH Workflow SS LABORATORYOrdered By: Jose Schultz on 05-30-2025 ABO and Rh group Nom (Bld) O positive (05/30/25 9:43 PM) [facility] Group B Strep, External Unknown (05/30/25 9:43 PM) [facility] Hepatitis B Date Performed [id number] [facility] Hepatitis B, External Negative (05/30/25 9:43 PM) [facility] HIV Antibodies, External Negative (05/30/25 9:43 PM) [facility] RPR, External Nonreactive (05/30/25 9:43 PM) [facility] Rubella, External Immune (05/30/25 9:43 PM) [facility] No Panel Informationon 05-30 Culture Urine Specimen received in lab. [facility] URINALYSISon 05-30-2025 Amorphous NONE Normal [facility] Comment on above: Performed By: #### 2 77371 #### [facility],[address] [place] [address] Bacteria NONE Normal [facility] Comment on above: Performed By: #### 2 96988 #### [facility],[address] [place] [address] Bilirubin Ql (U) Negative Normal NORMAL: NEGATIVE [facility] Comment on above: Performed By: #### 2 01043 #### [facility],[address] [place] [address] Casts NONE Normal [facility] Comment on above: Performed By: #### 2 13953 #### [facility],[address] [place] [address] Clarity (U) clear Normal NORMAL: CLEAR [facility] Comment on above: Performed By: #### 2 86171 #### [facility],[address] [place] [address] Color (U) p.yel Normal NORMAL: YELLOW [facility] Comment on above: Performed By: #### 2 63001 #### [facility],[address] [place] [address] 79448 Crystals LM Nom (Urine sed) NONE Normal [facility] Comment on above: Performed By: #### 2 88666 #### [facility],[address] [place] [address] 49989 Epi Cells OCC Normal [facility] Comment on above: Performed By: #### 2 97107 #### [facility],[address] [place] [address] 51933 Glucose Ql (U) NORM Normal NORMAL: NORMAL [facility] Comment on above: Performed By: #### 2 52469 #### [facility],[address] [place] [address] 87744 Hemoglobin Ql (U) 10 Abnormal NORMAL: NEGATIVE [facility] Comment on above: Performed By: #### 2 47492 #### [facility],[address] [place] [address] 96640 Ketone 15 Abnormal NORMAL: NEGATIVE [facility] Comment on above: Performed By: #### 2 16440 #### [facility],[address] [place] [address] 66014 Leukocytes Negative Normal NORMAL: NEGATIVE [facility] Comment on above: Performed By: #### 2 39873 #### [facility],[address] [place] [address] 38166 Mucous NONE Normal [facility] Comment on above: Performed By: #### 2 11175 #### [facility],[address] [place] [address] 83234 Nitrite Ql (U) Negative Normal NORMAL: NEGATIVE [facility] Comment on above: Performed By: #### 2 23267 #### [facility],[address] [place] [address] 39723 pH (U) 7 [pH] Normal NORMAL: 5.0-8.0 [facility] Comment on above: Performed By: #### 2 91998 #### [facility],[address] [place], [place] [address] Protein Ql (U) Negative Normal NORMAL: NEGATIVE [facility] Comment on above: Performed By: #### 2 56899 #### [facility],[address] [place], [place] [address] Rbc 0-5 Normal 0-3/hpf [facility] Comment on above: Performed By: #### 2 24748 #### [facility],[address] [place] [address] Sp [place] 1.005 Low NORMAL: 1.010-1.030 [facility] Comment on above: Performed By: #### 2 06229 #### [facility],[address] [place] [address] Specimen Type Clean catch Normal [facility] Comment on above: Performed By: #### 2 90242 #### [facility],[address] [place] [address] Urinalysis dipstick W Reflex Microscopic panel (U) SEE BELOW Normal [facility] Comment on above: Result Comment: MICR OSCOPIC Performed By: #### 2 33540 #### [facility],[address] [place], [place] [id number] Urobilinog NORM Normal NORMAL: NORMAL [facility] Comment on above: Performed By: #### 2 25526 #### [facility],[address] [place], [place] [address] Wbc NONE Normal 0-5/hpf [facility] Comment on above: Performed By: #### 2 83527 #### [facility],[address] [place] [address] 42187 Yeast NONE Normal [facility] Comment on above: Performed By: #### 2 30962 #### [facility],[address] [place] [address] [place] KIDNEYon 05-30-[address] ? [place] [address] ? Patient: BLUE ZAZUETA Phone#: : [phone] Age: 24 Gender: F Pt. Type: Out Account: [id number] Location: [facility] Ordering: LETITIA KO Exam Date: 05/30/2025/14:40 Family Phys: Charge Code: 157870 Physician: [place] Order #: [id number] Dose#: PROCEDURE: KIDNEY ULTRASOUND COMPARISON: None. INDICATIONS: Right flank pain. TECHNIQUE: Ultrasound examination was performed of the kidneys and bladder. FINDINGS: RIGHT KIDNEY: The right kidney is 12.7 x 5.7 x 6.8 centimeters. There is moderate right hydronephrosis. Obstructing etiology is not demonstrated. Patient does have gravid uterus. LEFT KIDNEY: The left kidney is 12.7 x 5.6 x 6.8 centimeters. Multiple calcifications are present. Largest calcification visualized is 14 millimeters. OTHER: Prevoid bladder volume is 363 milliliters. There is no postvoid residual identified. CONCLUSION: 1. Moderate right-sided hydronephrosis is present. Obstructing etiology is not demonstrated. 2. Multiple left renal calculi are present without obstruction. Dictated by: Jalyn Mazariegos MD on 05/30/2025 at 15:54 Approved by: Jalyn Mazariegos MD on 05/30/2025 at 16:00 Normal [facility] CBC (NO DIFF)on 05-29-2025 CBC panel Auto (Bld) Normal [facility] Comment on above: Result Comment: CBC( WITHOUT DIFFERENTIAL) Performed By: #### 2 11169 #### [facility],[address] [place], [place] [id number] Erythrocyte distribution width (RBC) [Ratio] 13.0 % Normal 12.0 - 15.6 [facility] Comment on above: Performed By: #### 2 03923 #### [facility],[address] [place] [address] Hematocrit (Bld) [Volume fraction] 31.5 % Low 34.0 - 46.0 [facility] Comment on above: Performed By: #### 2 44777 #### [facility],[address] [place], [place] [address] Hemoglobin (Bld) [Mass/Vol] 11.0 g/dL Low 12.0 - 16.0 [facility] Comment on above: Performed By: #### 2 24139 #### [facility],[address] [place], [place] [address] MCH (RBC) [Entitic mass] 32 pg Normal 27 - 33 [facility] Comment on above: Performed By: #### 2 80275 #### [facility],[address] [place], [place] [address] MCHC 35 X10 3 Normal 32 - 36 [facility] Comment on above: Performed By: #### 2 83876 #### [facility],[address] [place], [place] [address] MCV (RBC) [Entitic vol] 91 fL Normal 80 - 99 [facility] Comment on above: Performed By: #### 2 79326 #### [facility],[address] [place], [place] [id number] PLATELET 283 x10EE3/UL Normal 150 - 450 [facility] Comment on above: Performed By: #### 2 91864 #### [facility],[address] [address] [place], [place] [id number] Platelet mean volume (Bld) [Entitic vol] 7.2 fL Normal 6.6 - 10.5 [facility] Comment on above: Performed By: #### 2 67633 #### [facility],[address] [place] [address] RBC 3.46 x 10EE6/UL Low 4.10 - 5.30 [facility] Comment on above: Performed By: #### 2 44746 #### [facility],[address] [place] [address] WBC 13.7 x 10EE3/UL High 4.5 - 10.8 [facility] Comment on above: Performed By: #### 2 19106 #### [facility],[address] [place] [address] Laboratory - Chemistry and C hemistry - challengeon 05-29-2025 Ketones Ql (U) Negative Normal [employer].; [employer] [facility] [employer] pH (U) 7.0 [pH] Normal [employer].; [employer] Specific gravity (U) [Rel density] 1.010 Normal [employer].; [email or web address] [facility] [employer], [employer] Laboratory - Hematology and Cell countson 05-29-2025 Hemoglobin Ql (U) HEMOLYZED TRACE Abnormal [facility] [employer].; [email or web address] [facility] [employer] [facility], [employer]. Laboratory - Specimen inform ationon 05-29-2025 Appearance (U) CLEAR Normal [facility] [employer] Laboratory - Urinalysison Glucose Test strip (U) [Mass/Vol] Negative Normal [facility] [employer].; [employer] Leukocyte esterase Test strip Ql (U) Negative Normal [facility] [employer].; [employer] Protein Ql (U) TRACE Abnormal [employer] No Panel Informationon 05-29 UA - ODOR Negative Normal [employer] UA - UROBILIGEN 0.2 Normal [employer] URINALYSISon 05-29-2025 Amorphous NONE Normal [facility] Comment on above: Performed By: #### 2 65028 #### [facility],[address] [place] [address] Bacteria 1+ Normal [facility] Comment on above: Performed By: #### 2 76589 #### [facility],[address] [place], [place] [address] Bilirubin Ql (U) Negative Normal NORMAL: NEGATIVE [facility], [facility].; [facility], [place], [facility]. Comment on above: Performed By: #### 2 45752 #### [facility],[address] [place] [address] Casts NONE Normal [facility] Comment on above: Performed By: #### 2 14251 #### [facility],[address] [place] [address] Clarity (U) clear Normal NORMAL: CLEAR [facility] Comment on above: Performed By: #### 2 82899 #### [facility],[address] [place] [address] Color (U) YELLOW Normal NORMAL: YELLOW [facility], [employer] [facility], [place], Inc[employer] Comment on above: Performed By: #### 2 76596 #### [facility],[address] [place] [address] Crystals LM Nom (Urine sed) NONE Normal [facility] Comment on above: Performed By: #### 2 32526 #### [facility],[address] [place], [place] [id number] Epi Cells MANY Normal [facility] Comment on above: Performed By: #### 2 93816 #### [facility],[address] [place] [address] Glucose Ql (U) NORM Normal NORMAL: NORMAL [facility] Comment on above: Performed By: #### 2 11745 #### [facility],[address] [place] [address] Hemoglobin Ql (U) 10 Abnormal NORMAL: NEGATIVE [facility] Comment on above: Performed By: #### 2 24599 #### [facility],[address] [place], [place] [address] Ketone Negative Normal NORMAL: NEGATIVE [facility] Comment on above: Performed By: #### 2 09729 #### [facility],[address] [place] [address] Leukocytes Negative Normal NORMAL: NEGATIVE [facility] Comment on above: Performed By: #### 2 08912 #### [facility],[address] [place] [address] Mucous NONE Normal [facility] Comment on above: Performed By: #### 2 41784 #### [facility],[address] [place] [address] Nitrite Ql (U) Negative Normal NORMAL: NEGATIVE [facility].; [facility], [place], [facility]. Comment on above: Performed By: #### 2 80008 #### [facility],[address] [place] [address] pH (U) 7 [pH] Normal NORMAL: 5.0-8.0 [facility] Comment on above: Performed By: #### 2 61209 #### [facility],[address] [place] [address] Protein Ql (U) 15 Abnormal NORMAL: NEGATIVE [facility] Comment on above: Performed By: #### 2 83757 #### [facility],[address] [place] [address] Rbc 0-5 Normal 0-3/hpf [facility] Comment on above: Performed By: #### 2 60443 #### [facility],[address] [place] [address] Sp [place] 1.005 Low NORMAL: 1.010-1.030 [facility] Comment on above: Performed By: #### 2 03548 #### [facility],[address] [place] [address] Specimen Type Clean catch Normal [facility] Comment on above: Performed By: #### 2 54163 #### [facility],[address] [place] [address] Urinalysis dipstick W Reflex Microscopic panel (U) SEE BELOW Normal [facility] Comment on above: Result Comment: MICR OSCOPIC Performed By: #### 2 65269 #### [facility],[address] [place] [address] Urobilinog NORM Normal NORMAL: NORMAL [facility] Comment on above: Performed By: #### 2 66278 #### [facility],[address] [place] [address] Wbc 1-5 Normal 0-5/hpf [facility] Comment on above: Performed By: #### 2 33507 #### [facility],[address] [place] [address] Yeast NONE Normal [facility] Comment on above: Performed By: #### 2 80019 #### [facility],[address] [place] [address] Abdomen Single Viewon 2023 Abdomen Single View [facility] Imaging Services [address] [place] [address] Abdomen Single View MR#: [id number] Acct: [id number] Name: BLUE ZAZUETA Rep #: [id number] : 2000 F 23 From: Mauricio Cardenas MD PCP: Dr. Era Martins MD Status: REG CLI Study: Abdomen Single View Date of Exam: 04/19/24 Exam# [id number] Ordering Dr: Radhames Gamboa MD [id number] EXAM: XR ABDOMEN, 1 VIEW CLINICAL INDICATION: [facility]- KIDNEY STONE TECHNIQUE: Frontal supine view of the abdomen/pelvis. COMPARISON: No relevant prior studies available. FINDINGS: LOWER THORAX: No acute pathology. GASTROINTESTINAL TRACT: Unremarkable. Non-obstructive. No bowel or stomach distention. ORGANS: Unremarkable as visualized. No organomegaly. No abnormal calcifications. BONES/JOINTS: No acute pathology. SOFT TISSUES: No acute pathology. TUBES, LINES AND DEVICES: Left ureteral stent is in place. RAD/Abdomen Single View IMPRESSION: Nonobstructive bowel gas pattern. Left ureteral stent is in place. Electronically Signed: Mauricio Cardenas MD at 0:11 EDT , CC: Dr. Radhames Gamboa MD; Dr. Era Martins MD Vessel Specialist: Signed Normal [facility] Discharge Instructionon Discharge Instruction [facility] Medical Records Department [address] [place] [address] Instructions for Home/Discharge Instructions 03/21/24 0928 MR#: [id number] Acct: [id number] Name: BLUE ZAZUETA Rep #: [id number] : 2000 23 From: Radhames Gamboa MD PCP: Dr. Era Martins MD Status:[facility] Discharge Instructions Diet Discharge Diet: No restrictions Activity Discharge Activity: Return to Normal Activity Dressing / Incision Call your doctor if you observe: Fever of 101 or Higher, Inability to urinate and Inability to have a bowel movement Follow Up Care Please Follow Up With: Radhames Gamboa MD When: The office will call to make arrangements for follow up with KUB in 2-3 weeks. Test Results: Test results from this visit will be discussed in further detail at your follow-up appointment, if applicable. Discharge Plan Admission Attending Provider: Radhames Gamboa Primary Care Provider: Era Martins Instructions Print Language: Luxembourgish Discharge Orders/Prescriptions Prescriptions: New oxycodone-acetaminop hen [Percocet] 5-325 mg tablet 1 tab PO Q8H PRN (Reason: pain) 3 Days Qty: 10 0RF cephalexin 500 mg capsule 500 mg PO Q12 3 Days Qty: 6 0RF Continued ondansetron 4 mg tablet,disintegratin g 4 mg PO Q8H PRN (Reason: nausea and vomiting) Qty: 10 0RF Referrals / Follow Up: Era Martins MD [Primary Care Provider] - Disposition Disposition (needs filled in before D/C Order can be placed): Home, Self Care 03/21/24 0931 Radhames Gamboa MD CC: Dr. Era Martins MD Signed [facility] MR/POSTOP.ANEon 03-21-2024 MR/POSTOP.[facility] Medical Records Department [address] [place] [address] Anesthesia Postop Eval I 03/21/24 1049 MR#: [id number] Acct: [id number] Name: RINA ZAZUETATIFFANIE Rep #: [id number] : 2000 23 From: Khari Pratt PCP: Dr. Era Martins MD Status:REG SDC Y Race: C Location: [place] [address] Anesthesia: Postop Eval I Current Vital Signs Temperature: 97.2 F Pulse Rate: 94 Blood Pressure: 124/64 Respiratory Rate: 10 Pulse Ox: 90 Oxygen Delivery Method: Nasal Cannula Oxygen Flow Rate (L/min): 4 Assessment Airway patent: Yes Spontaneous unlabored respirations: Yes Mental status: Calm nausea: No Vomiting: No Anesthesia Complication: No Fluid Hydration Crystalloid volume administer (ml): 1,100 Total IV fluid infused: 1,100 Progress Note Anesthesia document: Postop Eval 1 completed: Yes 03/21/24 105 Date Khari Chilel Signature: Date CC: Signed [facility] MR/[id number] 03-21-2024 MR/POSTOPAN2 [facility] Medical Records Department [address] [place] [address] Anesthesia Postop Eval II 03/21/24 1051 MR#: [id number] Acct: [id number] Name: RINA ZAZUETATIFFANIE Rep #: [id number] : 2000 23 From: Reno Dobbs MD PCP: Dr. Era Kornhaus, MD Status:REG SDC Y Race: C Location: [facility]09[facility]21 Anesthesia Postop Eval I Sum Postop Eval Completion status Anesthesia document: Postop Eval 1 completed: Yes Anesthesia Postop Eval I Summary Anesthesia Postop Eval I Summary: Anesthesia Postop Eval I: Assessment Summary Airway patent Yes 03/21/24 10:50 [employer]UG CLEANER.MDOT Spontaneous unlabored Yes 03/21/24 10:50 [employer] CLE[employer]ER.MDOT respirations Mental status Calm 03/21/24 10:50 [employer]ER.MDOT nausea No 03/21/24 10:50 [employer] CLE[employer]ER.MDOT Vomiting No 03/21/24 10:50 [employer]ER.MDOT Anesthesia Postop Eval I: Fluid Summary Crystalloid volume administer ,100 03/21/24 10:50 HAND RUG CLEANER.MDOT (ml) Colloids volume administered ( ml) Blood Product volume administered (ml) Total IV fluid infused ,03/21/24 10:50 [employer]UG CLE[employer]ER.MDOT Anesthesia Postop Eval I: Summary Notes Anesthesia Complication No 03/21/24 10:50 HAND RUG CLEANER.MDOT Anesthesia Complication Comment: Post-operative progress note Anesthesia: Postop Eval II Evaluation Mental status: Awake Pain Level: 0 nausea: No Vomiting: No 03/21/24 1051 Date Reno Dobbs MD Cosigner Signature: Date CC: Signed Normal [facility] Operative Reporton 4 Operative Report [facility] Medical Records Department [address] [facility] [place] [address] Operative Report 03/21/24 09 MR#: [id number] Acct: [id number] Name: BLUE ZAZUETA Rep #: [id number] : 2000 23 From: Radhames Gamboa MD PCP: Dr. Era Martins MD Status:REG [facility] Location: [place] [address] Problems Associated Problem List Diagnoses (1) Kidney stone: Report of Operation Date of Procedure: 03/21/24 Pre-Operative Diagnosis: Left renal calculus Post-Operative Diagnosis: Same Surgery/Procedure Performed:: Left renal extracorporal shockwave lithotripsy Surgeon: Radhames Gamboa Type of Anesthesia: General Specimen's removed: None Description of Procedure: The patient is a 23-year-old female who underwent a cystoscopy and left ureteral stent insertion for an obstructing left renal calculus 2 weeks ago. She now presents for definitive intervention with extracorporal shockwave lithotripsy. Informed consent was obtained. The patient was taken to the operating room and placed on the lithotripsy table. Anesthesia monitored the head, neck, airway, IV access and vital signs throughout the case. Once anesthesia was appropriately administered, she was aligned with the lithotripter and 3000 shocks were applied to the left renal stone. The stone appeared to be fragmented at the conclusion of the case. There were no complications. She was awakened and taken to the recovery room in good condition. Grafts/Implants Used: None Admit VTE Documentation VTE Present on Admission: Yes VTE Mechan Device Prophylaxis: SCD's VTE Pharm Prophylaxis ordered?: No Reason prophylaxis not ordered:: Treatment Not Indicated 03/21/24 1010 Cosigner Signature (if applicable): CC: Dr. Radhames Gamboa MD; Dr. Era Martins MD Signed Normal [facility] ,Urineon 03-21-2024 Beta HCG ( test) Ql (U) Negative Normal [facility] [employer] [facility] hospitali[facility] Work Phone: Comment on above: Result Comment: Very dilute urine specimens, as indicated by a low specific gravity, may not contain retention representative levels of hCG. If is still suspected, a first morning urine specimen should be collected 48 hours later and tested. Performed By: #### L 400.7600 ####[facility] [address] [facility] [place], [place], [address] MR/[id number] 03-06-2024 MR/POSTOPAN2 [facility] Medical Records Department [address] [place] [address] Anesthesia Postop Eval II 03/06/24 0624 MR#: [id number] Acct: [id number] Name: BLUE ZAZUETA Rep #: [id number] : 2000 23 From: Bennett Hawkins MD PCP: Dr. Era Martins MD Status:DIS EMANUEL Y Race: C [facility] Postop Eval I Sum Postop Eval Completion status Anesthesia document: Postop Eval 1 completed: Yes Anesthesia Postop Eval I Summary Anesthesia Postop Eval I Summary: Anesthesia Postop Eval I: Assessment Summary Airway patent Yes 03/05/24 17:42 [employer]ER.SKOBY Spontaneous unlabored Yes 03/05/24 17:42 [employer].SKOBY respirations Mental status Awake,Calm 03/05/24 17:42 [employer].SKOBY nausea No 03/05/24 17:42 [employer]ER.SKOBY Vomiting No 03/05/24 17:42 [employer]ER.SKOBY Anesthesia Postop Eval I: Fluid Summary Crystalloid volume administer 400 03/05/24 17:42 HAND RUG CLEANER.SKOBY (ml) Colloids volume administered ( ml) Blood Product volume administered (ml) Total IV fluid infused 400 03/05/24 17:42 [employer]ER.SKOBY Anesthesia Postop Eval I: Summary Notes Anesthesia Complication No 03/05/24 17:42 HAND RUG CLEANER.SKOBAshley Anesthesia Complication Comment: Post-operative progress note Anesthesia: Postop Eval II Evaluation Mental status: Awake Pain Level: 1 nausea: No Vomiting: No Complications Anesthesia Complication: No 03/06/24 0624 Date Bennett Hawkins MD Cosigner Signature: Date CC: Signed Normal [facility] Basic Metabolic Profile (BMP )on 03-05-2024 BUN/CRE 11.6 RATIO Normal 10-20 [facility] Comment on above: Performed By: #### L 100.0100, L500.2500 #### [facility] Laboratory [address] [place], [address] CA,Total 8.5 mg/dL Normal 8.5-10.1 [facility] Comment on above: Performed By: #### L 100.0100, L500.2500 #### [facility] [address] [place], [address] Chloride [Moles/Vol] 107 mmol/L Normal 98-107 [facility] Comment on above: Performed By: #### L 100.0100, L500.2500 #### [facility] [address] [place], [address] CO2 [Moles/Vol] 23.0 mmol/L Normal 21.0-32.0 [facility] Comment on above: Performed By: #### L 100.0100, L500.2500 #### [facility] [address] [place], [address] Creatinine [Mass/Vol] 1.29 mg/dL High 0.55-1.02 [facility] Comment on above: Result Comment: The validity of the calculated GFR GFRAA in patients over 70 years has not been determined. Clinical correlation is essential. Performed By: #### L 100.0100, L500.2500 #### [facility] [address] [place], [address] ECRCL 60.13 ml/min Normal [facility] Comment on above: Performed By: #### L 100.0100, L500.2500 #### [facility] [address] [place], [address] EST GFR - AA 66 mL/min Normal >60 [facility] Comment on above: Result Comment: Afri can [place] Citizen GFR Calc Performed By: #### L 100.0100, L500.2500 #### [facility] [address] [place], [address] GAP 8 Normal 5-15 [facility] Comment on above: Performed By: #### L 100.0100, L500.2500 #### [facility] [address] [place], [address] GFR/1.73 sq M.predicted among non-blacks MDRD (S/P/Bld) [Vol rate/Area] 54 mL/min/{1.73_m2} Low >60 [facility] Comment on above: Result Comment: Non- GFR Calc Performed By: #### L 100.0100, L500.2500 #### [facility] [address] [place], [address] Glucose [Mass/Vol] 99 mg/dL Normal 74-106 [facility] Comment on above: Performed By: #### L 100.0100, L500.2500 #### [facility] [address] [place], [address] Potassium [Moles/Vol] 3.3 mmol/L Low 3.5-5.1 [facility] Comment on above: Performed By: #### L 100.0100, L500.2500 #### [facility] [address] [place], [address] Sodium [Moles/Vol] 138 mmol/L Normal 136-145 [facility] Comment on above: Performed By: #### L 100.0100, L500.2500 #### [facility] [address] [place], [address] Urea nitrogen [Mass/Vol] 15 mg/dL Normal 7-18 [facility] Comment on above: Performed By: #### L 100.0100, L500.2500 #### [facility] [address] [place], [address] CBC W/Diff, Automatedon 07-1 Absolute Lymph 1.46 X10 3/uL Normal 0.83-4.51 [facility] Comment on above: Performed By: #### L 100.0100, L500.2500 #### [facility] [address] [place], [address] Absolute Neut 6.7 X10 3/uL Normal 2.0-7.7 [facility] Comment on above: Performed By: #### L 100.0100, L500.2500 #### [facility] [address] [place], [address] Basophils/100 WBC (Bld) 0.4 % Normal 0-1 [facility] Comment on above: Performed By: #### L 100.0100, L500.2500 #### [facility] [address] [place], [address] Eosinophils/100 WBC (Bld) 2.2 % Normal 0-5 [facility] Comment on above: Performed By: #### L 100.0100, L500.2500 #### [facility] [address] [place], [address] Erythrocyte distribution width (RBC) [Ratio] 12.0 % Normal 11.6-14.6 [facility] Comment on above: Performed By: #### L 100.0100, L500.2500 #### [facility] [address] [place], [address] Hematocrit (Bld) [Volume fraction] 32.8 % Low 37-47 [facility] Comment on above: Performed By: #### L 100.0100, L500.2500 #### [facility] [address] [place], [address] Hemoglobin (Bld) [Mass/Vol] 10.8 g/dL Low 12.0-15.0 [facility] Comment on above: Performed By: #### L 100.0100, L500.2500 #### [facility] [address] [place], [address] IG% 2.000 High 0.0-0.9 [facility] Comment on above: Result Comment: IG% - Immature Granulocytes (promyelocytes, myelocytes and metamyelocytes) > 1% indicates that a LEFT SHIFT is Present. Performed By: #### L 100.0100, L500.2500 #### [facility] [address] [place], [address] Lymphocytes/100 WBC (Bld) 15.5 % Low 19-41 [facility] Comment on above: Performed By: #### L 100.0100, L500.2500 #### [facility] [address] [place], [address] MCH (RBC) [Entitic mass] 28.6 pg Normal 27.0-32.0 [facility] Comment on above: Performed By: #### L 100.0100, L500.2500 #### [facility] [address] [place], [address] MCHC (RBC) [Mass/Vol] 32.9 g/dL Normal 32-36 [facility] Comment on above: Performed By: #### L 100.0100, L500.2500 #### [facility] [address] [place], [address] MCV (RBC) [Entitic vol] 86.8 fL Normal 81-99 [facility] Comment on above: Performed By: #### L 100.0100, L500.2500 #### [facility] [address] [place], [address] Monocytes/100 WBC (Bld) 8.4 % Normal 0-10 [facility] Comment on above: Performed By: #### L 100.0100, L500.2500 #### [facility] [address] [place], [address] Neutrophils/100 WBC (Bld) 71.5 % High 47-70 [facility] Comment on above: Performed By: #### L 100.0100, L500.2500 #### [facility] [address] [place], [address] Nucleated RBC (Bld) [#/Vol] 0 10*3/uL Normal 0-5 [facility] Comment on above: Performed By: #### L 100.0100, L500.2500 #### [facility] [address] [place], [address] Platelet mean volume (Bld) [Entitic vol] 9.6 fL Normal 6.2-12.0 [facility] Comment on above: Performed By: #### L 100.0100, L500.2500 #### [facility] [address] [place], [address] Platelets (Bld) [#/Vol] 329 10*3/uL Normal 150-450 [facility] Comment on above: Performed By: #### L 100.0100, L500.2500 #### [facility] [address] [place], [address] RBC (Bld) [#/Vol] 3.78 10*6/uL Low 4.2-5.4 [facility] Comment on above: Performed By: #### L 100.0100, L500.2500 #### [facility] [address] [place], [address] RDW SD 38.1 fl Normal 35.1-43.9 [facility] Comment on above: Performed By: #### L 100.0100, L500.2500 #### [facility] [address] [place], [address] WBC (Bld) [#/Vol] 9.4 10*3/uL Normal 4.4-11.0 [facility] Comment on above: Performed By: #### L 100.0100, L500.2500 #### [facility] [address] [place], [address] Discharge Instructionon 07-1 6-2024 Discharge Instruction [facility] Medical Records Department [address] [place] [address] Instructions for Home/Discharge Instructions 03/05/24 1756 MR#: [id number] Acct: [id number] Name: BLUE ZAZUETA Rep #: [id number] : 2000 23 From: Radhames Gamboa MD PCP: Dr. Era Martins MD Status:ADM EMANUEL Discharge Instructions Diet Discharge Diet: No restrictions Dressing / Incision Call your doctor if you observe: Fever of 101 or Higher, Inability to urinate and Inability to have a bowel movement Follow Up Care Please Follow Up With: Radhames Gamboa MD Test Results: Test results from this visit will be discussed in further detail at your follow-up appointment, if applicable. Discharge Plan Admission Admit Date/Time: 03/05/24 03:55 Attending Provider: Radhames Gamboa Primary Care Provider: Era Martins Discharge Orders/Prescriptions Prescriptions: New oxycodone-acetaminop hen [Percocet] 5-325 mg tablet 1 tab PO Q8H PRN (Reason: pain) 3 Days Qty: 10 0RF ondansetron 4 mg tablet,disintegratin g 4 mg PO Q8H PRN (Reason: nausea and vomiting) Qty: 10 0RF cephalexin 500 mg capsule 500 mg PO 3XD 5 Days Qty: 15 0RF No Action nitrofurantoin macrocrystal 100 mg capsule 100 mg PO Q12H Qty: 10 0RF Rx Instructions: must administer with a meal/food omeprazole 20 mg capsule,delayed release(DR/EC) 20 mg PO DAILY Qty: 30 0RF Referrals / Follow Up: Era Martins MD [Primary Care Provider] - Disposition Disposition (needs filled in before D/C Order can be placed): Home, Self Care 03/05/241756 Radhames Gamboa MD CC: Dr. Era Martins MD Signed Normal [facility] Discharge Instruction [facility] Medical Records Department [address] [place] [address] Instructions for Home/Discharge Instructions 03/05/24 1730 MR#: [id number] Acct: [id number] Name: MARBINBLUE Rep #: [id number] : 2000 23 From: Radhames Gamboa MD PCP: Dr. Era Martins MD Status:ADM EMANUEL Discharge Instructions Diet Discharge Diet: No restrictions Activity Discharge Activity: Return to Normal Activity Dressing / Incision Call your doctor if you observe: Fever of 101 or Higher, Inability to urinate and Inability to have a bowel movement Follow Up Care Please Follow Up With: Radhames Gamboa MD When: The office will call her to make follow up arrangements. Test Results: Test results from this visit will be discussed in further detail at your follow-up appointment, if applicable. Discharge Plan Admission Admit Date/Time: 03/05/24 03:55 Attending Provider: Radhames Gamboa Primary Care Provider: Era Martins Discharge Orders/Prescriptions Prescriptions: New oxycodone-acetaminop hen [Percocet] 5-325 mg tablet 1 tab PO Q8H PRN (Reason: pain) 3 Days Qty: 10 0RF ondansetron 4 mg tablet,disintegratin g 4 mg PO Q8H PRN (Reason: nausea and vomiting) Qty: 10 0RF No Action nitrofurantoin macrocrystal 100 mg capsule 100 mg PO Q12H Qty: 10 0RF Rx Instructions: must administer with a meal/food omeprazole 20 mg capsule,delayed release(DR/EC) 20 mg PO DAILY Qty: 30 0RF Referrals / Follow Up: Era Martins MD [Primary Care Provider] - Disposition Disposition (needs filled in before D/C Order can be placed): Home, Self Care 03/05/24 1743 Radhames Gamboa MD CC: Dr. Era Martins MD Signed ADDENDUM by Dr. Radhames Gamboa MD on 03/05/24 at 1756 . 03/05/24 1756 Radhames Gamboa MD cc: Dr. Era Martins MD * Signed Normal [facility] Emergency Department Summary on 03-05-2024 Emergency Department Summary [facility] Medical Records Department [address] [place] [address] Emergency Department Summary 03/05/24 MR#: [id number] Acct: [id number] Name: MARBINRINATIFFANIE Rep #: [id number] : 2000 23 From: Ray Dumas DO PCP: Dr. Era Martins MD Status:ADM EMANUEL Location: HI3 [id number] HPI History of Present Illness Chief Complaint: Complaint Informant: patient and spouse/S.O. Narrative Narrative: Patient is a 23-year-old Demetrio female with no significant past medical history. She was seen roughly 4 days ago secondary to abdominal/flank pain. She states that her symptoms were not improving and therefore she followed up with her family doctor who ordered a CT scan which showed a large kidney stone. Patient states she is on Percocet as well as ibuprofen and is taking those as directed. Despite taking the pain medication her pain continued to worsen and secondary to his EMS was called and she was brought into the hospital for repeat evaluation [facility] Medical History Kidney stone Home Medications ???Medication ???Instructions ???Recorded ???Last Taken ???Type nitrofurantoin macrocrystal 100 mg 100 mg PO Q12H #10 caps 05/25/23 Unknown Rx capsule omeprazole 20 mg capsule,delayed 20 mg PO DAILY #30 CAPSULES 02/29/24 Unknown Rx release Allergy/AdvReac Type Severity Reaction Status Date / Time No Known Allergies Allergy Verified 02/29/24 11:42 Social History Smoking Status: Never smoker ROS ROS ED Constitutional Constitutional ED: Denies chills or fever(s) ENT ENT ED: Denies sore throat Cardiovascular Cardiovascular: Denies chest pain Respiratory/Chest Respiratory/Chest: Denies cough or dyspnea Gastrointestinal Gastrointestinal: Reports abdominal pain and nausea; Denies diarrhea or vomiting Genitourinary Genitourinary ED: Reports hematuria; Denies dysuria Musculoskeletal Musculoskeletal: Reports back pain Integumentary Denies rash Neurologic Neurologic: Denies headache(s) Hematologic/Lymphati c Hematologic/Lymphati c: Denies easy bleeding or easy bruising EXAM Physical Exam Const Vital Signs: 03/04/24 23:33 03/04/24 23:38 03/05/24 01:32 Temperature 98.9 F 98.9 F 98 F Temperature Source Temporal Temporal Temporal Pulse Rate 90 94 103 H Respiratory Rate 18 18 16 Blood Pressure 133/85 H 113/80 Blood Pressure Mean 101 91 Pulse Ox 98 95 98 Oxygen Delivery Method Room Air Room Air Room Air Positive well nourished and well developed General Appearance ED: well developed; Negative for pallor HEENT HEENT Narrative: Normocephalic atraumatic Eyes PERRL and EOMs intact bilaterally General Eye ED: Negative for pale conjunctiva or scleral icterus Neck supple Resp normal respiratory effort and clear to auscultation bilaterally Cardio regular rate and regular rhythm Rate: other Other Details: Heart is regular rate and rhythm without murmurs rubs or gallops Radial and carotid pulses equal and symmetric GI non-distended GI Narrative: There is mild tenderness to the patient along the left lateral abdomen diffusely without voluntary guarding or rigidity No pulsatile mass or fluid wave Auscultation: hypoactive bowel sounds Palpation: soft Back/Spine Back/Spine Narrative: Positive left CVA pain noted Extremity normal to inspection Neuro oriented x3, CN's II-XII intact bilaterally and no sensory deficits noted Sensorium / Orientation: alert Motor Exam: strength 5/5 throughout Psych mental status grossly normal Skin no rashes or lesions noted and no wounds Skin Narrative: No overlying soft tissue changes to suggest trauma or infection General Skin Exam: Negative for jaundice or pallor MDM MDM MDM Narrative Medical decision making narrative: Patient arrived to the ER with stable vitals and reported resolution or improvement of her pain down to evaluate 3 after receiving morphine by EMS. Chart review was performed and it shows she had a CT scan done earlier today that reveals a large left-sided kidney stone that is roughly 1.2 x 1.2 x 0.9 cm in size. This correlates with the location and persistence of the patient's pain. She also has mild elevation to her kidney function changing from 0.79-1.29 today. However this does not elevate high enough to classify as acute kidney injury. Urine sample reveals no sign of infection and she does not have physical exam or lab findings to suggest urosepsis. However despite the fact she is taking adequate pain medication but having intractable pain there is concern she will need admitted to the hospital and therefore the case was discussed with the urologist on-call Dr. Gamboa. She agrees that with the patient's intractable pain despite taking adequate pain medication she (more content not included)... Normal [facility] Laboratory - Chemistry and C hemistry - challengeon 03-05-2024 Chloride [Moles/Vol] 107 mmol/L Normal 98 - 10 7 mmol/L [facility]; [facility] Work Phone: CO2 [Moles/Vol] 23.0 mmol/L Normal 21.0 - 32.0 mmol/L [facility]; [facility] Work Phone: Creatinine [Mass/Vol] 1.29 mg/dL Abnormal 0.55 - 1.02 mg/dL [facility]; [facility] Work Phone: GFR/1.73 sq M.predicted among non-blacks MDRD (S/P/Bld) [Vol rate/Area] 54 mL/min/{1.73_m2} Abnormal [facility]; [facility] Work Phone: Glucose [Mass/Vol] 99 mg/dL Normal 74 - 106 mg/dL [facility]; [facility]. Work Phone: Magnesium [Mass/Vol] 50 mg/dL Abnormal [facility]; [facility]. Work Phone: Magnesium [Mass/Vol] 30 mg/dL Abnormal [facility]; [facility]. Work Phone: Magnesium [Mass/Vol] 8.5 mg/dL Normal 8.5 - 1 0.1 mg/dL [facility]; [facility] Work Phone: Potassium [Moles/Vol] 3.3 mmol/L Abnormal 3.5 - 5.1 mmol/L [facility]; [facility] Work Phone: Sodium [Moles/Vol] 138 mmol/L Normal 136 - 145 mmol/L [facility]; [facility] Work Phone: Urea nitrogen [Mass/Vol] 15 mg/dL Normal 7 - 18 mg/dL [facility]; [facility] Work Phone: Laboratory - Hematology and Cell countson 03-05-2024 Basophils/100 WBC (Bld) 0.4 % Normal 0 - 1 [facility]; [facility] Work Phone: Eosinophils/100 WBC (Bld) 2.2 % Normal 0 - 5 [facility]; [facility] Work Phone: Erythrocyte distribution width (RBC) [Ratio] 12.0 % Normal 11.6 - 14.6 [facility]; [facility] Work Phone: Hematocrit (Bld) [Volume fraction] 32.8 % Abnormal 37 - 47 [facility]; [facility] Work Phone: Hemoglobin (Bld) [Mass/Vol] 10.8 g/dL Abnormal 12.0 - 15.0 g/dL [facility]; [facility] Work Phone: Lymphocytes/100 WBC (Bld) 15.5 % Abnormal 19 - 41 [facility]; [facility] Work Phone: MCH (RBC) [Entitic mass] 28.6 pg Normal 27.0 - 32.0 pg [facility]; [facility] Work Phone: MCHC (RBC) [Mass/Vol] 32.9 g/dL Normal 32 - 36 g/dL E [facility]; [facility] Work Phone: MCV (RBC) [Entitic vol] 86.8 fL Normal 81 - 99 fL [facility]; [facility] Work Phone: Monocytes/100 WBC (Bld) 8.4 % Normal 0 - 10 [facility]; [facility] Work Phone: Neutrophils/100 WBC (Bld) 71.5 % Abnormal 47 - 70 [facility]; [facility] Work Phone: Nucleated RBC (Bld) [#/Vol] 0 10*3/uL Normal 0 - 5 [facility]; [facility] Work Phone: Platelet mean volume (Bld) [Entitic vol] 9.6 fL Normal 6.2 - 12.0 fL [facility]; [facility] Work Phone: Platelets (Bld) [#/Vol] 329 10*3/uL Normal 150 - 450 K/mm3 [facility]; [facility] Work Phone: RBC (Bld) [#/Vol] 3.78 10*6/uL Abnormal 4.2 - 5.4 {M/mm3} [facility]; [facility] Work Phone: WBC (Bld) [#/Vol] 9.4 10*3/uL Normal 4.4 - 11.0 K/mm3 [facility]; [facility] Work Phone: Laboratory - Microbiology an d Antimicrobial susceptibilityon 03-05-2024 Bacteria identified Cx Nom (Unsp spec) 0 SEEN Normal [facility].; [facility]. Work Phone: Laboratory - Specimen inform ationon 03-05-2024 Clarity (U) Clear Normal [facility].; [facility]. Work Phone: Color (U) Yellow Normal [facility].; [facility]. Work Phone: Laboratory - Urinalysison Mucus Ql (Urine sed) 0 SEEN Normal [facility] [employer] [facility]. Work Phone: Nitrite Ql (U) Negative Normal [facility] [employer].; [facility]. Work Phone: MR/POSTOP.ANEon 03-05-2024 MR/POSTOP.[facility] Medical Records Department [address] [place] [address] Anesthesia Postop Eval I 03/05/24 174 MR#: [id number] Acct: [id number] Name: BLUE ZAZUETA Rep #: [id number] : 2000 23 From: Vannesa Armendariz CRNA PCP: Dr. Era Martins MD Status:ADM EMANUEL Y Race: C Location: [place] [address] Anesthesia: Postop Eval I Current Vital Signs Temperature: 97.7 F Pulse Rate: 76 Blood Pressure: 125/80 Respiratory Rate: 16 Pulse Ox: 97 Oxygen Delivery Method: Room Air Assessment Airway patent: Yes Spontaneous unlabored respirations: Yes Mental status: Awake and Calm nausea: No Vomiting: No Anesthesia Complication: No Fluid Hydration Crystalloid volume administer (ml): 400 Total IV fluid infused: 400 Progress Note Anesthesia document: Postop Eval 1 completed: Yes 03/05/241741 Date Vannesa Armendariz CRNA Cosigner Signature: Date CC: Signed Normal [facility] No Panel Informationon 03-05 Absolute Lymph 1.46 {X10_3/uL} Normal 0.83 - 4.5 1 {X10_3/uL} [facility] [employer] [facility] [employer] [facility] Work Phone: Absolute Neut 6.7 {X10_3/uL} Normal 2.0 - 7.7 {X10_3/uL} [facility] [employer] [facility] [employer] [facility] [employer] [facility] Work Phone: BILIRUBIN URINE Negative Normal [facility] [employer] [facility] [facility] [employer] [facility] Work Phone: BUN/CRE 11.6 {RATIO} Normal 10 - 20 {RATIO} [facility] [employer] [facility] [facility] [employer] [facility] Work Phone: ECRCL 60.13 ml/min Normal [facility] [employer] [facility] [employer] [facility] Work Phone: EPI,SQUAMOUS 0 SEEN Normal 5 - 10 {/hpf} [facility] [employer] [facility] [facility] [employer] [facility] Work Phone: EST GFR - AA 66 mL/min Normal [facility] [employer] [facility] [employer] [facility] Work Phone: GAP 8 Normal 5 - 15 [employer] [facility] [facility] [employer] [facility] Work Phone: GLUCOSE, UR Normal Normal [facility] [employer] [facility] Inc.; [facility] Work Phone: IG% 2.000 Abnormal 0.0 - 0.9 [facility]; [facility] Work Phone: LEUK ESTERASE 100 /ul Abnormal [facility]; [facility] Work Phone: OCCULT BLOOD-UR 25 /ul Abnormal [facility]; [facility] Work Phone: pH UR 6.5 Normal 5.0 - 8.0 [facility]; [facility] Work Phone: RBC 0 SEEN Normal 0 - 5 {/hpf} [facility]; [facility] Work Phone: RDW SD 38.1 fL Normal 35.1 - 43.9 fL [facility]; [facility] Work Phone: SP.GR. DIPSTX 1.010 Normal 1.002 - 1.030 [facility]; [facility] Work Phone: UROBILI Normal Normal [facility]; [facility] Work Phone: WBC 0-5 SEEN Normal 0 - 5 {/hpf} [facility]; [facility] Work Phone: Operative Reporton 4 Operative Report [facility] Medical Records Department [address] [place] [address] Operative Report 03/05/24 1231 MR#: [id number] Acct: [id number] Name: BLUE ZAZUETA Rep #: [id number] : 2000 23 From: Radhames Gamboa MD PCP: Dr. Era Martins MD Status:ADM EMANUEL Location: [place] [id number] Report of Operation Date of Procedure: 03/05/24 Pre-Operative Diagnosis: left renal stone with intractable pain Post-Operative Diagnosis: same Surgery/Procedure Performed:: Cystoscopy with left ureteral stent insertion Type of Anesthesia: MAC Description of Procedure: The patient is a 23-year-old female with a history of stones who presented to the emergency room with intractable left flank pain. She was found to have large left renal pelvic stone She now presents for cystoscopy with left ureteral stent insertion. Informed consent was obtained. She was taken the operating room and placed on the operating room table. Anesthesia monitored the head, neck, airway, IV access and vital signs throughout the case. Once anesthesia was appropriate ministered, she was placed into dorsolithotomy position and was prepped and draped in usual sterile fashion. The cystoscope was inserted through the urethra under direct visualization into the urinary bladder. The bladder mucosa was visualized in its entirety revealing no evidence of mass, erythema, ulceration or foreign body. A 0.035 Glidewire was then used to cannulate the left ureteral orifice advanced easily into the renal pelvis. A 4.5 Citizen [place] by 22 cm stent was selected and passed over the Glidewire with good positioning in the renal pelvis as well as the urinary bladder. Lots of urine came from the stent. At this time the patient's bladder was emptied and the cystoscope was removed. She was awakened and taken to the recovery room in good condition. There were no complications during this procedure. Grafts/Implants Used: 4.5 [place] by 22 cm JJ stent Complications None Admit VTE Documentation VTE Present on Admission: Yes VTE Mechan Device Prophylaxis: SCD's Reason prophylaxis not ordered:: Treatment Not Indicated 03/05/24 1730 Cosigner Signature (if applicable): CC: Dr. Radhames Gamboa MD; Dr. Era Martins MD Signed Normal [facility] Partial Thromboplast Timeon 03-05-2024 aPTT Coag (Bld) [Time] 37.3 s Abnormal 24.1 - 36.2 s [facility]; [facility] Work Phone: Comment on above: Performed By: #### L 300.3900, L300.4310 ####[facility] [address] [place], [place], [address] ,Urineon 03-05-2024 Beta HCG ( test) Ql (U) Normal [facility] Comment on above: Result Comment: DUPL ICATE Performed By: #### L 400.7600 ####[facility] [address] [place], [address] INTERNAL QC OK? Normal [facility] Comment on above: Result Comment: DUPL ICATE Performed By: #### L 400.7600 ####[facility] [address] [place], [place], [id number] RECORD KIT LOT# [facility] Comment on above: Result Comment: DUPL ICATE Performed By: #### L 400.7600 ####[facility] [address] [place], [address] Beta HCG ( test) Ql (U) Negative Normal [facility].; [facility]. Work Phone: Comment on above: Result Comment: Very dilute urine specimens, as indicated by a low specific gravity, may not contain retention representative levels of hCG. If is still suspected, a first morning urine specimen should be collected 48 hours later and tested. Performed By: #### L 400.7600 #### [facility] Laboratory [address] [place], [address] Prothrombin Time w/INRon INR Coag (PPP) [Relative time] 1.2 {INR} Normal [facility].; [facility]. Work Phone: Comment on above: Performed By: #### L 300.3900, L300.4310 ####[facility] [address] [place], [address] PT Coag (PPP) [Time] 14.7 s Normal 11.7 - 14.9 s E [facility]on[facility] Hospital[facility] [employer]; [facility] Work Phone: Comment on above: Performed By: #### L 300.3900, L300.4310 ####[facility] [address] [place], [address] Urinalysis, Completeon 03-05 WBC 0-5 SEEN Normal 0-5 [facility] Comment on above: Order Comment: THEE CTOR TO SPECIFY Performed By: #### L 400.0001 #### [facility] [address] [place], [address] BACTERIA 0 SEEN Normal None Seen [facility] Comment on above: Order Comment: THEE CTOR TO SPECIFY Performed By: #### L 400.0001 #### [facility] [address] [place], [address] EPI,SQUAMOUS 0 SEEN Normal 5-10 [facility] Comment on above: Order Comment: THEE CTOR TO SPECIFY Performed By: #### L 400.0001 #### [facility] [address] [place], [address] Mucus Ql (Urine sed) 0 SEEN Normal [facility] Comment on above: Order Comment: THEE CTOR TO SPECIFY Performed By: #### L 400.0001 #### [facility] [address] [place], [address] RBC 0 SEEN Normal 0-5 [facility] Comment on above: Order Comment: THEE CTOR TO SPECIFY Performed By: #### L 400.0001 #### [facility] [address] [place], [address] Laboratory - Chemistry and C hemistry - challengeon 03-04-2024 Albumin [Mass/Vol] 3.6 g/dL Normal 3.4 - 5.0 g/dL [facility]; [facility] Work Phone: Albumin [Mass/Vol] 0.9 g/dL Normal 0.9 - 1.6 [facility]; [facility] Work Phone: ALT [Catalytic activity/Vol] 8 U/L Abnormal 16 - 63 U/L [facility]; [facility] Work Phone: Anion gap [Moles/Vol] 17 mmol/L Normal 10 - 2 0 mmol/L [facility]; [facility] Work Phone: AST [Catalytic activity/Vol] 10 U/L Abnormal 13 - 39 U/L [facility]; [facility] Work Phone: Bilirubin [Mass/Vol] 0.6 mg/dL Normal 0.2 - 1 .0 mg/dL [facility]; [facility] Work Phone: Bilirubin Ql (U) Negative Normal [facility]; [facility] Calcium [Mass/Vol] 9.0 mg/dL Normal 8.5 - 10. 1 mg/dL [facility]; [facility] Work Phone: Chloride [Moles/Vol] 100 mmol/L Normal 98 - 10 7 mmol/L [facility]; [facility] Work Phone: CO2 [Moles/Vol] 23.5 mmol/L Normal 21.0 - 32.0 mmol/L [facility]; [facility] Work Phone: Creatinine [Mass/Vol] 1.37 mg/dL Abnormal 0.55 - 1.02 mg/dL [facility]; [facility]. Work Phone: CRP [Mass/Vol] 13.27 mg/dL Abnormal 0.00 - 0.90 mg/dL [facility]; [facility] Center[facility]. Work Phone: GFR/1.73 sq M.predicted among blacks MDRD (S/P/Bld) [Vol rate/Area] 58 {ML/MINUTE} Abnormal 60 - 999 {ML/MINUTE} [facility]; [facility]. Work Phone: GFR/1.73 sq M.predicted MDRD (S/P/Bld) [Vol rate/Area] 48 {ML/MINUTE} Abnormal 60 - 999 {ML/MINUTE} [facility].; [facility]. Work Phone: Globulin (S) [Mass/Vol] 4.2 g/dL Abnormal 1.5 - 3.8 g/dL [facility]; [facility] Center[facility]. Work Phone: Glucose [Mass/Vol] 91 mg/dL Normal 74 - 106 mg/dL [facility]; [facility] Center[facility]. Work Phone: Ketones Ql (U) MODERATE Abnormal [facility]; [facility] Center[facility] pH (U) 6.0 [pH] Normal [facility]; [facility] Potassium [Moles/Vol] 3.8 mmol/L Normal 3.5 - 5.1 mmol/L [facility]; [facility] Work Phone: Protein [Mass/Vol] 7.8 g/dL Normal 6.4 - 8.2 g/dL [facility]; [facility] Work Phone: Sodium [Moles/Vol] 137 mmol/L Normal 136 - 145 mmol/L [facility]; [facility] [place] Work Phone: Specific gravity (U) [Rel density] 1.015 Normal [facility]; [facility] [place] Urea nitrogen [Mass/Vol] 17 mg/dL Normal 7 - 18 mg/dL [facility]; [facility] [place] Work Phone: Urea nitrogen/Creatinine [Mass ratio] 12 {ratio} Normal 0 - 30 {ratio} [facility]; [facility] [place] Work Phone: Laboratory - Hematology and Cell countson 03-04-2024 Basophils (Bld) [#/Vol] 0.01 {x10EE3/UL} Normal 0.00 - 0.10 {x10EE3/UL} [facility]; [facility] [place] Work Phone: Basophils/100 WBC (Bld) 0.1 % Normal 0.0 - 2.0 % [facility]; [facility] [place] Work Phone: Eosinophils (Bld) [#/Vol] 0.17 {x10EE3/UL} Normal 0.00 - 0.50 {x10EE3/UL} [facility]; [facility] Work Phone: Eosinophils/100 WBC (Bld) 1.6 % Normal 0.0 - 7.0 % [facility]; [facility] Work Phone: Erythrocyte distribution width (RBC) [Ratio] 13.1 % Normal 12.0 - 15.6 % [facility]; [facility] [place] Work Phone: Hematocrit (Bld) [Volume fraction] 36.6 % Normal 34.0 - 46.0 % [facility]; [facility] [place] Work Phone: Hemoglobin (Bld) [Mass/Vol] 12.5 g/dL Normal 12.0 - 16.0 g/dL [facility]; [facility] [place] Work Phone: Hemoglobin Ql (U) +++ Abnormal [facility]; [facility] Lymphocytes (Bld) [#/Vol] 1.20 {x10EE3/UL} Normal 0.80 - 2.80 {x10EE3/UL} [facility]; [facility] Work Phone: Lymphocytes/100 WBC (Bld) 11.3 % Abnormal 20.0 - 45.0 % [facility]; [facility] Work Phone: MCH (RBC) [Entitic mass] 30 pg Normal 27 - 33 pg [facility]; [facility] Work Phone: MCHC (RBC) [Mass/Vol] 34 {X10_3} Normal 32 - 3 6 {X10_3} [facility]; [facility] Work Phone: MCV (RBC) [Entitic vol] 87 fL Normal 80 - 99 fL [facility]; [facility] Work Phone: Monocytes (Bld) [#/Vol] 0.64 {x10EE3/UL} Normal 0.20 - 1.00 {x10EE3/UL} [facility]; [facility] Work Phone: Monocytes/100 WBC (Bld) 5.9 % Normal 0.0 - 10.0 % [facility]; [facility] Work Phone: Morphology Jasbir (Bld) [Interp] N/A Normal [facility]; [facility] [place] [facility] Work Phone: Neutrophils (Bld) [#/Vol] 8.67 {x10EE3/UL} Abnormal 1.50 - 7.10 {x10EE3/UL} [facility]; [facility] Work Phone: Neutrophils/100 WBC (Bld) 81.1 % Abnormal 46.0 - 76.0 % [facility]; [facility] Work Phone: Platelet mean volume (Bld) [Entitic vol] 7.6 fL Normal 6.6 - 10.5 fL [facility]; [facility] Work Phone: Platelets (Bld) [#/Vol] 377 {x10EE3/UL} Normal 150 - 450 {x10EE3/UL} [facility]; [facility] Work Phone: RBC (Bld) [#/Vol] 4.22 {x_10EE6/UL} Normal 4.10 - 5.30 {x_10EE6/UL} [facility]; [facility] CenterBin[facility]. Work Phone: WBC (Bld) [#/Vol] 10.7 {x_10EE3/UL} Normal 4.5 - 10.8 {x_10EE3/UL} [employer] [facility], [employer] [facility] [employer] [facility], [employer] Work Phone: Laboratory - Microbiology an d Antimicrobial susceptibilityon 03-04-2024 Bacteria identified Cx Nom (U) See Note Normal [facility] [employer] [facility]istorPlus Inc.; HealthDataInsightsC[facility] [employer] [facility], [employer] Laboratory - Specimen inform ationon 03-04-2024 Appearance (U) CLEAR Normal [facility] [employer] [facility].; [employer] [facility] [employer] [facility], [employer]. Color (U) YELLOW Normal [facility] [employer] [facility].; [employer] [facility] [employer] [facility], [employer]. Laboratory - Urinalysison Glucose Test strip (U) [Mass/Vol] Negative Normal [facility] Health[facility].; [employer] [facility] [employer] [facility], [employer] Leukocyte esterase Test strip Ql (U) 1+ Abnormal [facility] [employer] [facility].; [employer] [facility] [employer] [facility], [employer] Nitrite Ql (U) Negative Normal [facility] [employer] [facility].; [employer] [place] [employer] [facility] [employer] [facility], [employer] Protein Ql (U) 1+ Abnormal [facility] [employer] [facility].; [employer] [facility] [employer] [facility], [employer] No Panel Informationon 03-04 AGE 23 {years} Normal [facility] [employer] [facility].; [employer] [facility] [employer] [facility], [employer] Work Phone: ALK PHOS 81 U/L Normal 46 - 116 U/L [facility] [employer] [facility].; [employer] [facility] [employer] [facility], [employer]. Work Phone: CBC + DIFF Normal [facility] [employer] [facility].; [employer] [facility] [employer] [facility], [employer] Work Phone: CMP with eGFR Normal [facility] [employer] [facility]okeBin[facility].; [facility] Center[facility] Work Phone: MANUAL DIFF N/A Normal [facility]; [facility] [place] Work Phone: UA - ODOR Negative Normal [facility]; [facility] CenterMa[facility]. CBC W/Diff, Automatedon 07- Absolute Lymph 1.44 X10 3/uL Normal 0.83-4.51 [facility] Comment on above: Performed By: #### L 500.4050, L100.0100, L501.2450, L700.6800 ####[facility] [address] [place], [address] Absolute Neut 6.5 X10 3/uL Normal 2.0-7.7 [facility] Comment on above: Performed By: #### L 500.4050, L100.0100, L501.2450, L700.6800 ####[facility] [address] [place], [address] Basophils/100 WBC (Bld) 0.5 % Normal 0-1 [facility] Comment on above: Performed By: #### L 500.4050, L100.0100, L501.2450, L700.6800 ####[facility] [address] [place], [address] Eosinophils/100 WBC (Bld) 1.4 % Normal 0-5 [facility] Comment on above: Performed By: #### L 500.4050, L100.0100, L501.2450, L700.6800 ####[facility] [address] [place], [address] Erythrocyte distribution width (RBC) [Ratio] 12.0 % Normal 11.6-14.6 [facility] Comment on above: Performed By: #### L 500.4050, L100.0100, L501.2450, L700.6800 ####[facility] [address] [place], [address] Hematocrit (Bld) [Volume fraction] 37.6 % Normal 37-47 [facility] Comment on above: Performed By: #### L 500.4050, L100.0100, L501.2450, L700.6800 ####[facility] [address] [place], [address] Hemoglobin (Bld) [Mass/Vol] 12.6 g/dL Normal 12.0-15.0 [facility] Comment on above: Performed By: #### L 500.4050, L100.0100, L501.2450, L700.6800 ####[facility] [address] [place], [address] IG% 0.500 Normal 0.0-0.9 [facility] Comment on above: Result Comment: IG% - Immature Granulocytes (promyelocytes, myelocytes and metamyelocytes) > 1% indicates that a LEFT SHIFT is Present. Performed By: #### L 500.4050, L100.0100, L501.2450, L700.6800 ####[facility] [address] [place], [address] Lymphocytes/100 WBC (Bld) 16.6 % Low 19-41 [facility] Comment on above: Performed By: #### L 500.4050, L100.0100, L501.2450, L700.6800 ####[facility] [address] [place], [address] MCH (RBC) [Entitic mass] 28.4 pg Normal 27.0-32.0 [facility] Comment on above: Performed By: #### L 500.4050, L100.0100, L501.2450, L700.6800 ####[facility] [address] [place], [address] MCHC (RBC) [Mass/Vol] 33.5 g/dL Normal 32-36 [facility] Comment on above: Performed By: #### L 500.4050, L100.0100, L501.2450, L700.6800 ####[facility] [address] [place], [address] MCV (RBC) [Entitic vol] 84.9 fL Normal 81-99 [facility] Comment on above: Performed By: #### L 500.4050, L100.0100, L501.2450, L700.6800 ####[facility] [address] [place], [address] Monocytes/100 WBC (Bld) 5.7 % Normal 0-10 [facility] Comment on above: Performed By: #### L 500.4050, L100.0100, L501.2450, L700.6800 ####[facility] [address] [place], [address] Neutrophils/100 WBC (Bld) 75.3 % High 47-70 [facility] Comment on above: Performed By: #### L 500.4050, L100.0100, L501.2450, L700.6800 ####[facility] [address] [place], [address] Nucleated RBC (Bld) [#/Vol] 0 10*3/uL Normal 0-5 [facility] Comment on above: Performed By: #### L 500.4050, L100.0100, L501.2450, L700.6800 ####[facility] [address] [place], [address] Platelet mean volume (Bld) [Entitic vol] 9.8 fL Normal 6.2-12.0 [facility] Comment on above: Performed By: #### L 500.4050, L100.0100, L501.2450, L700.6800 ####[facility] [address] [place], [address] Platelets (Bld) [#/Vol] 355 10*3/uL Normal 150-450 [facility] Comment on above: Performed By: #### L 500.4050, L100.0100, L501.2450, L700.6800 ####[facility] [address] [place], [address] RBC (Bld) [#/Vol] 4.43 10*6/uL Normal 4.2-5.4 [facility] Comment on above: Performed By: #### L 500.4050, L100.0100, L501.2450, L700.6800 ####[facility] [address] [place], [address] RDW SD 36.7 fl Normal 35.1-43.9 [facility] Comment on above: Performed By: #### L 500.4050, L100.0100, L501.2450, L700.6800 ####[facility] [address] [place], [address] WBC (Bld) [#/Vol] 8.7 10*3/uL Normal 4.4-11.0 [facility] Comment on above: Performed By: #### L 500.4050, L100.0100, L501.2450, L700.6800 ####[facility] [address] [place], [address] Comprehensive Metabolic Prof [facility] 02-29-2024 Albumin [Mass/Vol] 4.1 g/dL Normal 3.2-5.0 [facility] Comment on above: Performed By: #### L 500.4050, L100.0100, L501.2450, L700.6800 ####[facility] [address] [place], [address] Albumin/Globulin [Mass ratio] 1.3 {ratio} Normal 0.9-2.4 [facility] Comment on above: Performed By: #### L 500.4050, L100.0100, L501.2450, L700.6800 ####[facility] [address] [place], [address] ALK P 74 U/L Normal 45-117 [facility] Comment on above: Performed By: #### L 500.4050, L100.0100, L501.2450, L700.6800 ####[facility] [address] [place], [address] ALT [Catalytic activity/Vol] 10 U/L Low 13-56 [facility] Comment on above: Performed By: #### L 500.4050, L100.0100, L501.2450, L700.6800 ####[facility] [address] [place], [address] AST [Catalytic activity/Vol] 8 U/L Low 15-37 [facility] Comment on above: Performed By: #### L 500.4050, L100.0100, L501.2450, L700.6800 ####[facility] [address] [place], [address] Bilirubin [Mass/Vol] 0.60 mg/dL Normal 0.20-1.00 [facility] Comment on above: Result Comment: For patients on eltrombopag therapy, use of Dimension [place] TBIL is not recommended. Performed By: #### L 500.4050, L100.0100, L501.2450, L700.6800 ####[facility] [address] [place], [address] BUN/CRE 17.7 RATIO Normal 10-20 [facility] Comment on above: Performed By: #### L 500.4050, L100.0100, L501.2450, L700.6800 ####[facility] [address] [place], [address] CA,Total 9.2 mg/dL Normal 8.5-10.1 [facility] Comment on above: Performed By: #### L 500.4050, L100.0100, L501.2450, L700.6800 ####[facility] [address] [place], [address] Chloride [Moles/Vol] 106 mmol/L Normal 98-107 [facility] Comment on above: Performed By: #### L 500.4050, L100.0100, L501.2450, L700.6800 ####[facility] [address] [place], [address] CO2 [Moles/Vol] 24.0 mmol/L Normal 21.0-32.0 [facility] Comment on above: Performed By: #### L 500.4050, L100.0100, L501.2450, L700.6800 ####[facility] [address] [place], [address] Creatinine [Mass/Vol] 0.79 mg/dL Normal 0.55-1.02 [facility] Comment on above: Result Comment: The validity of the calculated GFR GFRAA in patients over 70 years has not been determined. Clinical correlation is essential. Performed By: #### L 500.4050, L100.0100, L501.2450, L700.6800 ####[facility] [address] [place], [address] ECRCL 96.79 ml/min Normal [facility] Comment on above: Performed By: #### L 500.4050, L100.0100, L501.2450, L700.6800 ####[facility] [address] [place], [address] EST GFR - AA 115 mL/min Normal >60 [facility] Comment on above: Result Comment: Afri can [place] Citizen GFR Calc Performed By: #### L 500.4050, L100.0100, L501.2450, L700.6800 ####[facility] [address] [place], [address] GAP 8 Normal 5-15 [facility] Comment on above: Performed By: #### L 500.4050, L100.0100, L501.2450, L700.6800 ####[facility] [address] [place], [address] GFR/1.73 sq M.predicted among non-blacks MDRD (S/P/Bld) [Vol rate/Area] 95 mL/min/{1.73_m2} Normal >60 [facility] Comment on above: Result Comment: Non- GFR Calc Performed By: #### L 500.4050, L100.0100, L501.2450, L700.6800 ####[facility] [address] [place], [address] Globulin (S) [Mass/Vol] 3.2 g/dL Normal 2.2-4.2 [facility] Comment on above: Performed By: #### L 500.4050, L100.0100, L501.2450, L700.6800 ####[facility] [address] [place], [address] Glucose [Mass/Vol] 132 mg/dL High 74-106 [facility] Comment on above: Result Comment: Fast ing Glucose result greater than or equal to 126 mg/dL suggests DIABETES MELLITUS per A.D.A. criteria. Performed By: #### L 500.4050, L100.0100, L501.2450, L700.6800 ####[facility] [address] [place], [address] Potassium [Moles/Vol] 3.2 mmol/L Low 3.5-5.1 [facility] Comment on above: Performed By: #### L 500.4050, L100.0100, L501.2450, L700.6800 ####[facility] [address] [place], [address] Sodium [Moles/Vol] 138 mmol/L Normal 136-145 [facility] Comment on above: Performed By: #### L 500.4050, L100.0100, L501.2450, L700.6800 ####[facility] [address] [place], [address] T PROT 7.3 g/dL Normal 6.4-8.2 [facility] Comment on above: Performed By: #### L 500.4050, L100.0100, L501.2450, L700.6800 ####[facility] [address] [place], [address] Urea nitrogen [Mass/Vol] 14 mg/dL Normal 7-18 [facility] Comment on above: Performed By: #### L 500.4050, L100.0100, L501.2450, L700.6800 ####[facility] [address] [place], [address] Emergency Department Summary on 02-29-2024 Emergency Department Summary [facility] Medical Records Department [address] [place] [address] Emergency Department Summary 02/29/24 MR#: [id number] Acct: [id number] Name: BLUE ZAZUETA Rep #: [id number] : 2000 23 From: Lorenza SMITH PCP: Dr. Mauricio Brown MD Status:DEP ER Location: ED ADDENDUM by Dr. Shakeel Olguin DO on 02/29/24 at 1559 . 02/29/24 1559 Cosigner Signature (if applicable): cc: Dr. Mauricio Brown MD * Signed ADDENDUM by Dr. Shakeel Olguin DO on 02/29/24 at 1559 Patient was seen and examined with physician sociology research assistant Lorenza All components history physical confirmed and agree. History of present illness Patient is a 23-year-old female who presents to [facility] with chief complaint of left upper quadrant abdominal pain nausea vomiting x 2 that started this morning. She notes that the pain has been going on intermittently for quite a bit of time now and notes that she is currently 11 weeks and has occurred more frequently since then but today the pain was increased more than her normal prompting her to come here for evaluation management. Patient states that she attempted some pretzels this morning and shortly after that she vomited and noted that the vomit looked brown in nature denied any black or blood in her vomit. Patient states that she is not currently on any medications Physical exam: General: Patient was lying in bed rest comfortably did not appear to be in acute distress Head: Atraumatic, normocephalic. EENT: Pupils equal round react light bilateral, extraocular muscle intact light, no conjunctival injection noted Neck: Soft, supple, trachea midline Cardiovascular: Regular rate and rhythm no murmurs gallops rubs noted Respiratory clear to auscultation bilaterally no rales rhonchi wheezing noted Abdominal: Soft, nondistended, mild tenderness palpation epigastric and left upper quadrant regions , no rebound or guarding on exam Extremities: +5/5 strength in the bilateral lower extremities Neurological: Patient follow commands that she is [facility] year is 2023 Psychiatric: Mood and affect appropriate Patient CBC was reviewed and showed no evidence of leukocytosis white blood cell normal 8.7, hemoglobin stable 12.6, platelet count was noted to be normal at 355. Patient sodium normal 138, potassium 3.2, creatinine normal at 0.79. Patient's AST and ALT were 8 and 10 respectively. Patient test was negative, lipase normal at 38. Patient's patient CBC reviewed and showed no evidence of leukocytosis white blood cell normal 8.7, he was stable 12.6, platelet count was normal at 355. Patient sodium was notably normal at 138, potassium was mildly low indicating hypokalemia at 3.2, creatinine was normal at 0.79. Patient AST ALT were 8 and 10 respectively. Patient lipase normal at 38, test was negative patient final impression: -Abdominal pain -Gastritis Disposition: Patient be discharged home in stable condition Supervising attending attestation: Shakeel Olguin D.O Plan: -Patient was given IV Zofran, Pepcid and oral potassium tolerated oral challenge without any emesis or any issues. Patient states that she does feel improved from when she arrived -Patient was prescribed omeprazole -Patient discharged home in stable condition with instructions to follow-up with her primary care physician in the outpatient setting . 02/29/24 0735 Cosigner Signature (if applicable): cc: Dr. Mauricio Brown MD * Signed HPI History of Present Illness Chief Complaint: Abd Pain Narrative Narrative: 23-year-old female presents with left upper quadrant abdominal pain and nausea and vomiting x 2 that started this morning. She states she has had this type of upper abdominal pain intermittently for years. She is 11 weeks and it has been a little more frequent since then but today is the most severe. Last night she had potatoes and a hot dog and this morning had a couple pretzels and then vomited twice and the emesis looked brown. Nothing bloody or black. She states she has been mildly constipated in the period but had a bowel movement yesterday and has had no melena or hematochezia. She takes no medications. She does not smoke or drink alcohol. No surgical history. PFSH PFSH Home Medications ???Medication ???Instructions ???Recorded ???Last Taken ???Type nitrofurantoin macrocrystal 100 mg 100 mg PO Q12H #10 caps 05/25/23 Unknown Rx capsule omeprazole 20 mg capsule,delayed 20 mg PO DAILY #30 CAPSULES 02/29/24 Unknown Rx release Allergy/AdvReac Type Severity Reaction Status Date / Time No Known Allergies Allergy Verified 02/29/24 11:42 Social History Smoking Status: Never smoker ROS ROS ED ROS Narrative Constitutional: Negative for fever, c (more content not included)... Normal [facility] Lipaseon 02-29-2024 Lipase [Catalytic activity/Vol] 38 U/L Normal 13-75 [facility] Comment on above: Result Comment: Demetrio mitchell note: LIPASE revised reference range effective 22. New Lipase methodology. Expected to produce lower values than the previous assay method. NEW Reference Range: 13 - 75 U/L Performed By: #### L 500.4050, L100.0100, L501.2450, L700.6800 ####[facility] [address] [place], [address] ,Serum,hCG Quali.on 02-29-2024 HCG, SERUM QUAL Negative Normal [facility] Comment on above: Performed By: #### L 500.4050, L100.0100, L501.2450, L700.6800 ####[facility] [address] [place], [address] Urine Cultureon 05-26-2023 URC Culture exhibits no growth. Normal [facility] Comment on above: Performed By: #### M 100.2200, L400.0001 #### [facility] [address] [place], [address] Office Visit Reporton 2022 Office Visit Report [facility] [address] [place] [address] OFFICE VISIT Date of Service: 05/25/23 MR#: [id number] Acct: [id number] Patient: BLUE ZAZUETA Rep #: [id number] : 2000 Provider: SARAH Frias Age/Sex: 22/F Location: [facility] Status: Signed Intake Intake Visit Reasons: UTI, , FEVER,DEHYDRATED?ACH Y Chief Complaint: dysuria HPI HPI Chief Complaint: dysuria Details: BLUE ZAZUETA, is a 22 F with pmhx of 3mo who presents to the office today for dysuria. She has burning with urination every time she goes. She also goes very little when she feels she needs to go. She has some urgency. She denies frequency or nocturia. She denies gretchen hematuria, denies vaginal discharge, denies itching. She has some subjective fever, headache and dizziness. She has some suprapubic discomfort, and she has some very low back pain (indicates around si area). She denies CVA area pain. ROS Const Constitutional: Positive for fever(s); No chills or fatigue Resp Respiratory: No cough, shortness of breath or wheezing Genitourinary-Female : Positive for burning urination and urinary urgency; No urinary frequency, blood in urine, Frequent nighttime urination/ nocturia, genital lesions or vaginal odor Musc Musculoskeletal: Positive for back pain Endo Endocrine: No fatigue Aller/Imm Allergy/Immunologic: No wheezing Exam Const General: cooperative, healthy appearing, comfortable, no acute distress, well developed and well groomed Nutritional Appearance: average body habitus and well nourished Orientation: alert, awake and oriented x3 HENMT Head: normocephalic and atraumatic Ears: hearing grossly normal bilaterally, external ears normal, TM's normal bilaterally and other (some wax in ears canal no impaction) Resp Effort Inspection: normal respiratory effort, able to speak in complete sentences, symmetric chest movement and no cough Auscultation: Bilateral: Clear to Auscultation Cardio Rate: regular rate Rhythm: regular rhythm Heart Sounds: no murmurs GI Other: mild suprapubic tenderness. no cva tenderness. Coding Level of Care Code Off vis,new,level 3 Diagnoses UTI (urinary tract infection) N39.0 Assessment and Plan Assessment and Plan (1) UTI (urinary tract infection): Status: Acute Plan: Complicated by . start macrobid. office dip c/w uti with + leukocytes, trace prot, ++ blood. Urine sent for full UA and culture, will follow. No chronic medical issue / medication use. pt not seeing obgyn yet. thinks she is about 3 mo . hcg urine + at this time. Orders: Orders Urinalysis, Complete Today N39.0 - Urinary tract infection, site not specified Culture, Urine Today N39.0 - Urinary tract infection, site not specified Medications: New nitrofurantoin macrocrystal must administer with a meal/food 100 mg PO Q12H 10 caps 0RF 05/25/23 1059 Date Jace SMITH Cosigner Signature: Date (if applicable) CC: Normal [facility] Urinalysis, Completeon 05-25 EPI,SQUAMOUS 5-10 SEEN Normal 5-10 [facility] Comment on above: Order Comment: Urine , Random Performed By: #### M 100.2200, L400.0001 #### [facility] [address] [place], [address] RBC 0-5 SEEN Normal 0-5 [facility] Comment on above: Order Comment: Urine , Random Performed By: #### M 100.2200, L400.0001 #### [facility] [address] [place], [address] BACTERIA 0 SEEN Normal None Seen [facility] Comment on above: Order Comment: Urine , Random Performed By: #### M 100.2200, L400.0001 #### [facility] [address] [place], [address] Mucus Ql (Urine sed) 0 SEEN Normal [facility] Comment on above: Order Comment: Urine , Random Performed By: #### M 100.2200, L400.0001 #### [facility] [address] [place], [address] WBC 0 SEEN Normal 0-5 [facility] Comment on above: Order Comment: Urine , Random Performed By: #### M 100.2200, L400.0001 #### [facility] [address] [place], [address] RPRon 03-19-2021 Reagin Ab RPR Ql (S) NR Normal Non Reactive Cl [facility] Comment on above: Performed By: #### R UBIGG, HBSAG #### [facility] Routine [facility] [address], [place] [address] #### RPR #### [facility] Immuno Assay [address], [place] [address] Hepatitis B Surf. Agon 03-16 Hepatitis B Surf. Ag NEGAT Normal Negative [facility] Comment on above: Performed By: #### R UBIGG, HBSAG #### [facility] [address] [place] [phone] #### RPR #### [facility] [address] [place] [phone] Rubella IgG Antibodyon 03-16 Rubella IgG Ab 12.30 Index Value Normal [facility] Reference [facility] Comment on above: Performed By: #### R UBIGG, HBSAG #### [facility] [address] [place] [phone] #### RPR #### [facility] [address] [place] [phone] Rubella IgG Ab, Qual Positive Abnormal Negative [facility] Comment on above: Performed By: #### R UBIGG, HBSAG #### [facility] [address] [place] [phone] #### RPR #### [facility] [address] [place] [address] GC/Chlamydia Amp, Uron 02-16 Chlamydia Amplif, Ur Normal [facility] Comment on above: Result Comment: Nega tive for For screening asymptomatic women, a vaginal swab specimen (APTIMA vaginal swab 893763) is optimal. Urine specimens have reduced sensitivity for Chlamydia trachomatis or Neisseria gonorrhoeae infection in female patients without symptoms. This test was developed and its performance characteristics determined by [facility] [place] ( [facility]). It has not been cleared or approved by the FDA. [facility] is regulated under CLIA as qualified to perform high complexity testing. This test is used for clinical purposes. It should not be regarded as investigational or for research. Chlamydia For screening asymptomatic women, a vaginal swab specimen (APTIMA vaginal swab 579128) is optimal. Urine specimens have reduced sensitivity for Chlamydia trachomatis or Neisseria gonorrhoeae infection in female patients without symptoms. This test was developed and its performance characteristics determined by [facility] Pathology [facility] Laboratory [facility] [place] ([facility]). It has not been cleared or approved by the FDA. [facility] is regulated under CLIA as qualified to perform high complexity testing. This test is used for clinical purposes. It should not be regarded as investigational or for research. trachomatis by For screening asymptomatic women, a vaginal swab specimen (APTIMA vaginal swab 974906) is optimal. Urine specimens have reduced sensitivity for Chlamydia trachomatis or Neisseria gonorrhoeae infection in female patients without symptoms. This test was developed and its performance characteristics determined by [facility] [place] ([facility]). It has not been cleared or approved by the FDA. [facility] is regulated under CLIA as qualified to perform high complexity testing. This test is used for clinical purposes. It should not be regarded as investigational or for research. amplification. For screening asymptomatic women, a vaginal swab specimen (APTIMA vaginal swab 610099) is optimal. Urine specimens have reduced sensitivity for Chlamydia trachomatis or Neisseria gonorrhoeae infection in female patients without symptoms. This test was developed and its performance characteristics determined by [facility] [place] ([facility]). It has not been cleared or approved by the FDA. [facility] is regulated under CLIA as qualified to perform high complexity testing. This test is used for clinical purposes. It should not be regarded as investigational or for research. Performed By: #### U GCCT #### [facility]ine [facility] [address], [place] [address] GC Amplification, Ur NGNEG Normal [facility] Comment on above: Performed By: #### U GCCT #### [facility]ine [facility] [address] [place], [place] [address] Vital Signs Date Time Vital Sign Value Performing Clinician Facility 05-31-2025 08:17-0400 Diastolic Blood Pressure Non-Invasive 62 mm[Hg] RONN VERDUZCO MD [facility] 05-31-2025 08:17-0400 Heart rate 95 /min RONN VERDUZCO MD [facility] 05-31-2025 08:17-0400 Systolic Blood Pressure Non-Invasive 106 mm[Hg] RONN VERDUZCO MD [facility] 05-31-2025 08:17-0400 Body temperature 98.06 [degF] RONN VERDUZCO MD [facility] 05-31-2025 08:17-0400 Respiratory rate 16 /min RONN VERDUZCO MD [facility] 05-31-2025 07:39-0400 Body temperature 98.42 [degF] RONN VERDUZCO MD [facility] 05-31-2025 03:20-0400 Body temperature 98.24 [degF] RONN VERDUZCO MD [facility] 05-31-2025 03:20-0400 Diastolic Blood Pressure Non-Invasive 48 mm[Hg] RONN VERDUZCO MD [facility] 05-31-2025 03:20-0400 Heart rate 97 /min RONN VERDUZCO MD [facility] 05-31-2025 03:20-0400 Respiratory rate 16 /min RONN VERDUZCO MD [facility] 05-31-2025 03:20-0400 Systolic Blood Pressure Non-Invasive 105 mm[Hg] RONN VERDUZCO MD [facility] 05-30-2025 23:22-0400 Diastolic Blood Pressure Non-Invasive 64 mm[Hg] RONN VERDUZCO MD [facility] 05-30-2025 23:22-0400 Heart rate 99 /min RONN VERDUZCO MD [facility] 05-30-2025 23:22-0400 Systolic Blood Pressure Non-Invasive 119 mm[Hg] RONN VERDUZCO MD [facility] 05-30-2025 21:43-0400 Body height 155 cm RONN VERDUZCO MD [facility] 05-30-2025 21:43-0400 Body weight 75.5 kg RONN VERDUZCO MD [facility] 05-30-2025 21:43-0400 Body weight 31.43 kg/m2 RONN VERDUZCO MD [facility] 05-30-2025 21:30-0400 Respiratory rate 16 /min RONN VERDUZCO MD [facility] 05-29-2025 15:39-0400 Body height 151.13 cm Enrico MARTINS MD Work Phone: [facility] [place] 05-29-2025 15:39-0400 Body mass index (BMI) [Ratio] 32.97 kg/m2 Enrico MARTINS MD Work Phone: [facility]; [facility] 05-29-2025 15:39-0400 Body surface area Derived from formula 1.71 m2 Enrico MARTINS MD Work Phone: [facility]; [facility] [place] 05-29-2025 15:39-0400 Body temperature 98.4 [degF] Enrico MARTINS MD Work Phone: [facility]; [facility] [place] Comment on above: Method: Oral 05-29-2025 15:39-0400 Body weight 75.3 kg Enrico MARTINS MD Work Phone: [facility]; [facility] [place] 05-29-2025 15:39-0400 Diastolic blood pressure 71 mm[Hg] Enrico MARTINS MD Work Phone: [facility]; [facility] [place], [employer]. Comment on above: Patient Position: Sitting; Cuff Location : Left Arm; Cuff Size: Large 05-29-2025 15:39-0400 Heart rate 91 /min Enrico MARTINS MD Work Phone: [facility], [facility].; [email or web address] [facility], [employer]. Comment on above: Pattern: Regular 05-29-2025 15:39-0400 Systolic blood pressure 110 mm[Hg] Enrico MARTINS MD Work Phone: [facility].; [facility], [employer]. Comment on above: Patient Position: Sitting; Cuff Location : Left Arm; Cuff Size: Large 03-04-2024 15:16-040 Body height 151.13 cm Guillermina Greene OUTPATIENT SERVICES DIRECTOR [facility] [employer] [facility] 03-04-2024 15:16-0400 Body mass index (BMI) [Ratio] 28.2 kg/m2 uGillermina Greene [facility] [employer] [facility] 03-04-2024 15:16-0400 Body surface area Derived from formula 1.6 m2 Guillermina Greene [facility] [employer] [facility] 03-04-2024 15:16-0400 Body temperature 98.3 [degF] Guillermina Greene [facility] [employer] [facility] Comment on above: Method: Oral 03-04-2024 15:16-0400 Body weight 64.41 kg Guillerminazelalem Greene [facility] [employer] [facility] [employer] [facility] 03-04-2024 15:16-0400 Diastolic blood pressure 77 mm[Hg] Guillerminazelalem Greene [facility] [employer] [facility] [employer] [facility] Comment on above: Patient Position: Sitting; Cuff Location : Left Arm; Cuff Size: Standard 03-04-2024 15:16-0400 Heart rate 84 /min Guillermina Ramona [facility], [employer] [facility], [employer]. Comment on above: Pattern: Regular 03-04-2024 15:16-0400 Systolic blood pressure 121 mm[Hg] Guillermina Greene OUTPATIENT SERVICES DIRECTOR [facility], [employer].; [facility], [employer]. Comment on above: Patient Position: Sitting; Cuff Location : Left Arm; Cuff Size: Standard Encounters Encounter Date Encounter Type Care Provider Facility Start: 05-30-2025 End: 05-31-2025 Evaluation and management of inpatient RONN VERDUZCO MD [facility] Start: 05-30-2025 End: 05-30-2025 ambulatory [facility] Start: 05-30-2025 End: 05-30-2025 ambulatory Enrico CAPONE [facility] Start: 05-29-2025 End: 05-29-2025 ambulatory [facility] Start: 05-29-2025 Review Enrico MARTINS MD Work Phone: [facility], [place], [employer] Start: 05-29-2025 End: 05-29-2025 Office outpatient visit 10 minutes Enrico MARTINS MD Work Phone: [facility] [place] Start: 04-19-2024 End: 04-19-2024 ambulatory [facility] Facility:[facility] Start: 03-21-2024 End: 03-21-2024 Historical Summary Enrico MARTINS MD Work Phone: [facility] Start: 03-21-2024 End: 03-21-2024 ambulatory [facility] Facility:[facility] Start: 03-11-2024 End: 03-11-2024 Historical Summary Enrico MARTINS MD Work Phone: [facility] Start: 03-05-2024 End: 03-05-2024 ambulatory Era Martins Facility:[facility] Start: 03-04-2024 Review Enrico MARTINS MD Work Phone: [facility] [employer] Start: 03-04-2024 End: 03-04-2024 Transition of Care Enrico MARTINS MD Work Phone: [facility] [employer] Start: 03-04-2024 End: 03-04-2024 Office outpatient visit 15 minutes Enrico MARTINS MD Work Phone: [facility] [employer] Start: 03-04-2024 Review Enrico MARTINS MD Work Phone: [facility] [employer] Start: 02-29-2024 End: 02-29-2024 Emergency department patient visit Mauricio Brown Facility:[facility] Start: 05-25-2023 End: 05-25-2023 ambulatory Jace SMITH Facility:[facility] Start: 05-25-2023 End: 05-25-2023 ambulatory Jaceashley SMITH Facility:[facility] Procedures Date Procedure Procedure Detail Performing Clinician Start: 05-30-2025 Urinalysis LETITIA Vides ILLER Comment on above: Result Comment: URIN ALYSIS Performed By: #### 2 [id number] #### [place] [id number] Start: 05-29-2025 Urinalysis LETITIA Vides ILLER Comment on above: Result Comment: URIN ALYSIS Performed By: #### 2 [id number] #### [place] [address] Start: 05-29-2025 End: 05-29-2025 Dischrg meds reconciled w/current med list OLY PARMAR MD Work Phone: Start: 03-11-2024 End: 03-11-2024 Ct abdomen & pelvis w/contrast material Enrico MARTINS MD Work Phone: Comment on above: Please call report t o [place] [phone] before pt. leaves (or my cell [phone] if after hours). Start: 03-11-2024 End: 03-11-2024 No Known Past Surgical History Enrico MARTINS MD Work Phone: Start: 03-04-2024 End: 03-04-2024 Dischrg meds reconciled w/current med list Enrico MARTINS MD Work Phone: Start: 03-04-2024 End: 03-04-2024 No Known Past Surgical History Guillermina Ramona OUTPATIENT SERVICES DIRECTOR Start: 02-19-2024 End: 02-19-2024 L ureteral stent Enrico MARTINS MD Work Phone: Comment on above: Dr. Bee Gamboa; then li thotripsy 2 weeks later (Emily) Plan of Treatment Date Care Activity Detail Author Start: 03-04-2024 Culture bacterial quanttative colony count urine URINE ANGIE CULTURE-AKANKSHA COL COUNT ([id number]) Start: 04-Mar-2024 16:00-04:00 Request [employer]; [employer] Start: 03-04-2024 Culture bct isol&prs mptv id isolate ea urine URINE ANGIE CULTURE-ID ([id number]) Start: 04-Mar-2024 16:00-04:00 Request [employer]; [employer] Start: 03-04-2024 C-reactive protein C-REACTIVE PROTEIN ([id number]) Start: 04-Mar-2024 15:58-04:00 Request [employer]; [employer]. Start: 03-04-2024 Comprehensive metabo lic panel CMP - COMPREHENSIVE METABOLIC PANEL ([id number]) Start: 04-Mar-2024 15:58-04:00 Request [employer]; [employer] Start: 03-04-2024 Blood count complete auto&auto difrntl wbc CBC, PLATELETS & AUT DIFF ([id number]) Start: 04-Mar-2024 15:58-04:00 Request [employer]; [employer] [facility] Start: 03-04-2024 Ct abdomen & pelvis w/contrast material CT ABDOMEN AND PELVIS WITH IV AND ORAL CONTRAST ([id number]) : To be done only if stone survey is negative. Start: 04-Mar-2024 Intent Comments: Please call report to [place] [phone] before pt. leaves (or my cell [phone] if after hours). [employer]; [employer] [facility] [employer] [facility] Comment on above: Please call report t o [place] [phone] before pt. leaves (or my cell [phone] if after hours). Start: 03-04-2024 Ct abdomen & pelvis w/o contrast material CT KUB OF ABDOMEN AND PELVIS WITHOUT CONTRAST For Detection of Kidney Stone([id number]) : If negative, please proceed with the IV and oral contrast scan. Start: 04-Mar-2024 Intent Comments: Please call report to [place] [phone] before pt. leaves (or my cell [phone] if after hours). [employer]; [employer] [facility] [email or web address] Comment on above: Please call report t o [place] [phone] before pt. leaves (or my cell [phone] if after hours). Payers Date Payer Category Payer Unknown [id number] 2023 Self-pay 2023 Unknown 0 2000 Unknown [id number] 2.16.8 [id number] 2000 Unknown [id number] 2.16.8 [id number] 2000 Unknown [id number] 2.16.8 [id number] 2000 Unknown [id number] 2.16.8 [id number] 2000 Unknown [id number] 2.16. [id number] Unknown [id number] 2.16.8 [id number] Unknown [id number] 2.16.8 [id number] Unknown [id number] 2.16.8 [id number] Unknown [id number] 2.16.8 [id number] Unknown [id number] 2.16.8 [id number] Unknown [id number] 2.16.8 [id number] Unknown [id number] Unknown [id number] Unknown Social History Date Type Detail Facility [facility] [employer]; [facility] [place] Work Phone: Tobacco smoking consumption unknown [facility]; [facility] Work Phone: Alcohol Use: Alcohol Use: ; N ever used alcohol. [facility] [employer] [facility]; [facility] Tobacco use: Tobacco use: ; N ever smoker. [facility]; [facility] Start: 05-30-2025 Never smoked tobacco [facility] Sexual Orientation [facility] Start: 09-29-2005 Sex Female (finding) [facility] Start: 05-30-2025 (finding) [facility] NEGATED: Highlighted row No Social History Information Available No Social History Information Available [facility]; [facility] [place] Work Phone: Functional Status Date Assessment Result Facility 05-31-2025 Functional Status Sitting in bed [facility] 05-31-2025 Functional Status [facility] 05-31-2025 Functional Status [facility] 05-31-2025 [facility] 05-31-2025 Functional Status Repositioned r ight side, Repositions self [facility] 05-31-2025 Functional Status [facility] 05-31-2025 [facility] 05-30-2025 Functional Status Home independently [facility] 05-30-2025 [facility] Mental Status Date Assessment Result Facility 05-31-2025 Mental Status Orientation Oriented x 4 [facility] Clinical Notes 03-05-2024 to 06-02-2025 Note Date & Type Note Facility 06-02-2025 Note . MICRO - Microbiology PROCEDURE: Urine Culture [*1] SOURCE: Urine, Straight BODY SITE: Catherized COLLECTED DATE/TIME: 05/30/2025 23:22 EDT RECEIVED DATE/TIME: 05/31/2025 07:14 EDT START DATE/TIME: 05/31/2025 07:15 EDT FREE TEXT SOURCE: FINAL REPORTS Final Report [] Verified Date/Time/Personnel: 06/02/2025 07:34 EDT No growth at 48 hours. PRELIMINARY REPORTS Preliminary Report [] Verified Date/Time/Personnel: 06/01/2025 08:50 EDT No growth to date Preliminary Report [] Verified Date/Time/Personnel: 05/31/2025 07:59 EDT Specimen received in lab. Performing Locations *1: This test was performed at: [facility], [address] [place] [address], [facility] , [facility] 05-31-2025 Note Date of Service 05/31/2025 OB Antepartum Discharge Summary Discharge Diagnosis: ( ) Oligohydramnios ( ) Pre-term Contractions ( ) Pre-term Labor ( ) Chronic HTN ( ) Mild preeclampsia ( ) Cervical insufficiency ( ) s/p Trauma ( ) Cholecystitis ( ) Multiple gestation ( ) Other: Nephrolithiasis Procedures: ( ) Cerclage ( ) Amniocentesis ( ) PUBS ( ) Amnioreduction Treatments: ( ) Steroids given Dates: ( ) Tocolytics given Hospital Course: ( ) Uncomplicated ( X ) See progress notes Abnormal Lab/Test Value: ( ) None ( X ) See progress notes RH: ( ) N/A ( X ) Rh positive ( ) Rh neg ( ) Rhogam given Rx: Keflex QID for 7 days Consultations/referrals: ( ) None ( ) Social Service ( ) Home Health ( ) Genetics ( ) Perinatology ( ) Surgery ( ) Infectious Disease ( ) Nutrition ( X ) Anesthesia ( ) Other Disposition: Home Condition on Discharge: Stable Follow-up Care: Patient will be for treatment of suspected pyelonephritis with Keflex 4 times daily for 7 days. She has been given strict return precautions. She is to return to the OB ED if she has new onset or worsening flank pain, and fever/chills. She was also counseled to monitor her symptoms closely. She will be discharged with a urine strainer. She was instructed to follow-up with her primary OB next week. Discussed with ODS attending Dr. Connors. Digitally Signed by ABBEY MESA MD on 05/31/2025 01:10 PM [facility] 05-31-2025 Hospital Discharg e instructions Patient Education 05/31/2025 12:49:12 7 - Labor and Delivery Outpatient Instructions (CUSTOM) [facility] OUT[facility] HOME-GOING INSTRUCTIONS _X_ You are to follow up with your physician within the week. ACTIVITY ___ Bedrest _x__Activity as tolerated ___ No work/school for ___ days. ___Other PRESCRIPTION GIVEN ___Yes NAUSEA/VOMITING ___ Take small, frequent amounts of clear liquids. Avoid fruit juices and milk. ___ Increase fluid intake to a minimum of 8 ounces of fluid every hour while awake. ___ Soft diet. Rice, crackers, bananas, Jell-O, cooked carrots, applesauce. ___ [place] diet. Avoid caffeine, chocolate, alcohol, spiced/greasy foods. URINARY TRACT INFECTION ___ Drink 8-12 glasses of water every day. ___ Urinate frequently; do not limit fluids to reduce frequency of urination. ___ Call your physician if burning and frequency with urination returns after taking all your medication. ___ Call your physician if you have a temperature of 100.4 degrees Fahrenheit or higher. ___ Wipe from front to back. SIGNS OF PRE-ECLAMPSIA ___ Severe heartburn. ___ Persistent headache not relieved by Tylenol. ___ Increased in swelling of face, hands and feet. ___ Blurred vision, double vision, or spots in the eyes. ___ Persistent vomiting. ___ *Convulsions or seizures. LABOR ___ Restrict activity. ___ Drink 8-12 glasses of water every day. ___ Urinate frequently ___ Pelvic rest. No sexual intercourse/ Call your physician if you experience: _x__ Increase in vaginal discharge, leaking fluid, or vaginal bleeding. _x__ More than 4, 5, or 6 contractions in one hour. _x__ Burning and frequency with urination. DECREASED MOVEMENT _x__ Lie down on your left side, drink some fluids and relax. Count the movements. You need to have 10 movements in 2 hours. _x__ If you do not feel the 10 movements, call your physician. OTHER ___ After an exam you may experience some spotting or discharge. As long as it is not bright red and heavy like a period or continues to leak as if your water broke, it is to be expected. LABOR Call your physician if you experience: _x__ Painful uterine contractions every _2-3__ minutes for _2__ hours. _x__A gush or continuous trickle of watery discharge. COME TO THE HOSPITAL AND CALL PHYSICIAN IF: _x__ Your abdomen feels continually firm. _x__ *Bleeding is bright red and enough to saturate a pad in one hour or less. *Call 911 or go to the nearest Emergency Room for assistance. Form 235712 D: 07/29 Document Released: 08/07/2006 Document Revised: 07/26/2012 Document Reviewed: 08/07/2006 [facility] Patient Information 2012 [employer]. 05/31/2025 12:48:12 Pyelonephritis, Adult Pyelonephritis, Adult Pyelonephritis is an infection that occurs in the kidney. The kidneys are the organs that filter a person's blood and move waste out of the bloodstream and into the urine. Urine passes from the kidneys, through tubes called ureters, and into the bladder. There are two main types of pyelonephritis: Infections that come on quickly without any warning (acute pyelonephritis). Infections that last for a long period of time (chronic pyelonephritis). In most cases, the infection clears up with treatment and does not cause further problems. More severe infections or chronic infections can sometimes spread to the bloodstream or lead to other problems with the kidneys. What are the causes? This condition is usually caused by: Bacteria traveling from the bladder up to the kidney. This may occur after having a bladder infection (cystitis) or urinary tract infection (UTI). Bladder infections caused from bacteria traveling from the bloodstream to the kidney. What increases the risk? This condition is more likely to develop in: women. Older people. People who have any of these conditions: ?Diabetes. ?Inflammation of the prostate gland (prostatitis), in males. ?Kidney stones or bladder stones. ?Other abnormalities of the kidney or ureter. ?Cancer. People who have a catheter placed in the bladder. People who are sexually active. Women who use spermicides. People who have had a prior UTI. What are the signs or symptoms? Symptoms of this condition include: Frequent urination. Strong or persistent urge to urinate. Burning or stinging when urinating. Abdominal pain. Back pain. Pain in the side or flank area. Fever or chills. Blood in the urine, or dark urine. Nausea or vomiting. How is this diagnosed? This condition may be diagnosed based on: Your medical history and a physical exam. Urine tests. Blood tests. You may also have imaging tests of the kidneys, such as an ultrasound or CT scan. How is this treated? Treatment for this condition may depend on the severity of the infection. If the infection is mild and is found early, you may be treated with antibiotic medicines taken by mouth (orally). You will need to drink fluids to remain hydrated. If the infection is more severe, you may need to stay in the hospital and receive antibiotics given directly into a vein through an IV. You may also need to receive fluids through an IV if you are not able to remain hydrated. After your hospital stay, you may need to take oral antibiotics for a period of time. Other treatments may be required, depending on the cause of the infection. Follow these instructions at home: Medicines Take your antibiotic medicine as told by your health care provider. Do not stop taking the antibiotic even if you start to feel better. Take crco-mgp-pitczkx and prescription medicines only as told by your health care provider. General instructions Drink enough fluid to keep your urine pale yellow. Avoid caffeine, tea, and carbonated beverages. They tend to irritate the bladder. Urinate often. Avoid holding in urine for long periods of time. Urinate before and after sex. After a bowel movement, women should cleanse from front to back. Use each tissue only once. Keep all follow-up visits as told by your health care provider. This is important. Contact a health care provider if: Your symptoms do not get better after 2 days of treatment. Your symptoms get worse. You have a fever. Get help right away if you: Are unable to take your antibiotics or fluids. Have shaking chills. Vomit. Have severe flank or back pain. Have extreme weakness or fainting. Summary Pyelonephritis is a urinary tract infection (UTI) that occurs in the kidney. Treatment for this condition may depend on the severity of the infection. Take your antibiotic medicine as told by your health care provider. Do not stop taking the antibiotic even if you start to feel better. Drink enough fluid to keep your urine pale yellow. Keep all follow-up visits as told by your health care provider. This is important. This information is not intended to replace advice given to you by your health care provider. Make sure you discuss any questions you have with your health care provider. Document Released: 08/07/2006 Document Revised: 06/11/2019 Document Reviewed: 06/11/2019 [employer] Patient Education 2020 [employer]. Follow Up Care 05/30/2025 20:50:00 With:[facility] Address:Unknown When: Unknown Comments:Follow-up as scheduled [facility] 05-31-2025 Maternal and feta l medicine Progress note Patient seen with Dr. Connors and the OB resident. OB resident exam reviewed and confirmed. The patient was transported for right sided flank pain. Ultrasound has shown nephrolithiasis. She has remained afebrile with normal WBC for . Her symptoms have resolved. Appreciate urology consultation. Agree with management as outpatient. Patient to return to [facility] ED should her symptoms recur. Otherwise she should should follow-up with urology for definitive treatment. Digitally Signed by DAMIEN DESAI MD on 05/31/2025 01:25 PM [facility] 05-31-2025 Note Date of Service 05/31/2025 OB Antepartum Discharge Summary Discharge Diagnosis: ( ) Oligohydramnios ( ) Pre-term Contractions ( ) Pre-term Labor ( ) Chronic HTN ( ) Mild preeclampsia ( ) Cervical insufficiency ( ) s/p Trauma ( ) Cholecystitis ( ) Multiple gestation ( ) Other: Nephrolithiasis Procedures: ( ) Cerclage ( ) Amniocentesis ( ) PUBS ( ) Amnioreduction Treatments: ( ) Steroids given Dates: ( ) Tocolytics given Hospital Course: ( ) Uncomplicated ( X ) See progress notes Abnormal Lab/Test Value: ( ) None ( X ) See progress notes RH: ( ) N/A ( X ) Rh positive ( ) Rh neg ( ) Rhogam given Rx: Keflex QID for 7 days Consultations/referrals: ( ) None ( ) Social Service ( ) Home Health ( ) Genetics ( ) Perinatology ( ) Surgery ( ) Infectious Disease ( ) Nutrition ( X ) Anesthesia ( ) Other Disposition: Home Condition on Discharge: Stable Follow-up Care: Patient will be for treatment of suspected pyelonephritis with Keflex 4 times daily for 7 days. She has been given strict return precautions. She is to return to the OB ED if she has new onset or worsening flank pain, and fever/chills. She was also counseled to monitor her symptoms closely. She will be discharged with a urine strainer. She was instructed to follow-up with her primary OB next week. Discussed with ODS attending Dr. Connors. Digitally Signed by ABBEY MESA MD on 05/31/2025 01:10 PM [facility] 05-31-2025 Note Discharge Instructions Thank you for allowing [facility] to assist you with your healthcare needs. The following is important discharge information regarding your hospital visit. Your Diagnosis Hydronephrosis, right Kidney stone on left side Right ureteral calculus What to do next Follow Up Appointments Follow Up with [facility] Additional Information: Follow-up as scheduled Someone Will Contact You Regarding These Home Health Referrals No home referrals have been ordered for you. No one will call you. The Following Activity and Diet Have Been Ordered for You No qualifying data available. No qualifying data available. The Following Equipment Has Been Ordered for You No qualifying data available. The Following Treatments Have Been Arranged for You Discharge Labs No qualifying data available. Discharge Radiology No qualifying data available. Other Therapies No qualifying data available. Allergies NKA Medications Please ask your primary doctor or pharmacist before taking any other medication not listed, including over the counter drugs, herbal medications, vitamins and or supplements as they may interact with your home medications. What How Much When Instructions Last Dose Unchanged multivitamin, ( AD) 1 tab(s) by mouth Once a day Please take this list to your next doctor s visit. Bring all medications you take, including over the counter medications, herbals and other supplements with you to your doctor s visit. Patients and families are reminded to discard old lists and to update any records with all medication providers or retail pharmacies. Education Materials [place] [facility] OUTPATIENT HOME-GOING INSTRUCTIONS _X_ You are to follow up with your physician within the week. ACTIVITY ___ Bedrest _x__Activity as tolerated ___ No work/school for ___ days. ___Other PRESCRIPTION GIVEN ___Yes NAUSEA/VOMITING ___ Take small, frequent amounts of clear liquids. Avoid fruit juices and milk. ___ Increase fluid intake to a minimum of 8 ounces of fluid every hour while awake. ___ Soft diet. Rice, crackers, bananas, Jell-O, cooked carrots, applesauce. ___ [place] diet. Avoid caffeine, chocolate, alcohol, spiced/greasy foods. URINARY TRACT INFECTION ___ Drink 8-12 glasses of water every day. ___ Urinate frequently; do not limit fluids to reduce frequency of urination. ___ Call your physician if burning and frequency with urination returns after taking all your medication. ___ Call your physician if you have a temperature of 100.4 degrees Fahrenheit or higher. ___ Wipe from front to back. SIGNS OF PRE-ECLAMPSIA ___ Severe heartburn. ___ Persistent headache not relieved by Tylenol. ___ Increased in swelling of face, hands and feet. ___ Blurred vision, double vision, or spots in the eyes. ___ Persistent vomiting. ___ *Convulsions or seizures. LABOR ___ Restrict activity. ___ Drink 8-12 glasses of water every day. ___ Urinate frequently ___ Pelvic rest. No sexual intercourse/ Call your physician if you experience: _x__ Increase in vaginal discharge, leaking fluid, or vaginal bleeding. _x__ More than 4, 5, or 6 contractions in one hour. _x__ Burning and frequency with urination. DECREASED MOVEMENT _x__ Lie down on your left side, drink some fluids and relax. Count the movements. You need to have 10 movements in 2 hours. _x__ If you do not feel the 10 movements, call your physician. OTHER ___ After an exam you may experience some spotting or discharge. As long as it is not bright red and heavy like a period or continues to leak as if your water broke, it is to be expected. LABOR Call your physician if you experience: _x__ Painful uterine contractions every _2-3__ minutes for _2__ hours. _x__A gush or continuous trickle of watery discharge. COME TO THE HOSPITAL AND CALL PHYSICIAN IF: _x__ Your abdomen feels continually firm. _x__ *Bleeding is bright red and enough to saturate a pad in one hour or less. *Call 911 or go to the nearest Emergency Room for assistance. Form [id number] D: 07/29 Document Released: 08/07/2006 Document Revised: 07/26/2012 Document Reviewed: 08/07/2006 [facility] Patient Information 2012 [employer]. Pyelonephritis, Adult Pyelonephritis is an infection that occurs in the kidney. The kidneys are the organs that filter a person's blood and move waste out of the bloodstream and into the urine. Urine passes from the kidneys, through tubes called ureters, and into the bladder. There are two main types of pyelonephritis: Infections that come on quickly without any warning (acute pyelonephritis). Infections that last for a long period of time (chronic pyelonephritis). In most cases, the infection clears up with treatment and does not cause further problems. More severe infections or chronic infections can sometimes spread to the bloodstream or lead to other problems with the kidneys. What are the causes? This condition is usually caused by: Bacteria traveling from the bladder up to the kidney. This may occur after having a bladder infection (cystitis) or urinary tract infection (UTI). Bladder infections caused from bacteria traveling from the bloodstream to the kidney. What increases the risk? This condition is more likely to develop in: women. Older people. People who have any of these conditions: ? Diabetes. ? Inflammation of the prostate gland (prostatitis), in males. ? Kidney stones or bladder stones. ? Other abnormalities of the kidney or ureter. ? Cancer. People who have a catheter placed in the bladder. People who are sexually active. Women who use spermicides. People who have had a prior UTI. What are the signs or symptoms? Symptoms of this condition include: Frequent urination. Strong or persistent urge to urinate. Burning or stinging when urinating. Abdominal pain. Back pain. Pain in the side or flank area. Fever or chills. Blood in the urine, or dark urine. Nausea or vomiting. How is this diagnosed? This condition may be diagnosed based on: Your medical history and a physical exam. Urine tests. Blood tests. You may also have imaging tests of the kidneys, such as an ultrasound or CT scan. How is this treated? Treatment for this condition may depend on the severity of the infection. If the infection is mild and is found early, you may be treated with antibiotic medicines taken by mouth (orally). You will need to drink fluids to remain hydrated. If the infection is more severe, you may need to stay in the hospital and receive antibiotics given directly into a vein through an IV. You may also need to receive fluids through an IV if you are not able to remain hydrated. After your hospital stay, you may need to take oral antibiotics for a period of time. Other treatments may be required, depending on the cause of the infection. Follow these instructions at home: Medicines Take your antibiotic medicine as told by your health care provider. Do not stop taking the antibiotic even if you start to feel better. Take ydbv-qwz-rbxrovs and prescription medicines only as told by your health care provider. General instructions Drink enough fluid to keep your urine pale yellow. Avoid caffeine, tea, and carbonated beverages. They tend to irritate the bladder. Urinate often. Avoid holding in urine for long periods of time. Urinate before and after sex. After a bowel movement, women should cleanse from front to back. Use each tissue only once. Keep all follow-up visits as told by your health care provider. This is important. Contact a health care provider if: Your symptoms do not get better after 2 days of treatment. Your symptoms get worse. You have a fever. Get help right away if you: Are unable to take your antibiotics or fluids. Have shaking chills. Vomit. Have severe flank or back pain. Have extreme weakness or fainting. Summary Pyelonephritis is a urinary tract infection (UTI) that occurs in the kidney. Treatment for this condition may depend on the severity of the infection. Take your antibiotic medicine as told by your health care provider. Do not stop taking the antibiotic even if you start to feel better. Drink enough fluid to keep your urine pale yellow. Keep all follow-up visits as told by your health care provider. This is important. This information is not intended to replace advice given to you by your health care provider. Make sure you discuss any questions you have with your health care provider. Document Released: 08/07/2006 Document Revised: 06/11/2019 Document Reviewed: 06/11/2019 [employer] Patient Education 2020 [employer] Inc. Additional Information VACCINATE! IT SAVES LIVES! Members of the community who have not yet received the COVID-19 vaccine and would like to receive it can visit one of [facility] vaccine clinics. There are many vaccine clinic locations within the [facility]. For locations and available times, please visit [email or web address] [email or web address] It is important to note that some COVID mobile vaccine clinics are held outdoors and may be canceled in rainy or stormy conditions. To learn more about pediatric vaccinations (ages 5-11), we invite you to visit the [facility] webpage. [email or web address]-[email or web address] To learn more about the COVID-19 vaccine, we invite you to visit the CDC website for a list of frequently asked questions. https://www.cdc.gov/coronavirus/ 2019-ncov/vaccines/faq.html [facility] Patient Portal Access Instructions: Stay connected with your healthcare team and access your personal medical information anytime with the [facility] Patient Portal.If you would like a full copy of your medical records, please contact the [facility] Medical Records Department, Monday through Monday between 8a.m. and 4:30p.m. Please follow the directions below to access the portal: 1.Access the email account you provided upon registration to the [facility].2.Look for an invitation email from [facility].3.Open the email and access the invitation link: Accept Invitation to [facility] [employer]4.Fill in the required azmora to create your account. To access your account, visit [employer] or scan the [employer] code above. Click the blue button labeled Access Patient Portal and then log in with the username and password that you created in the steps above. You can then view a summary of results, a summary of your visits, and the ability to download your summaries to your computer or send the information securely to a physician. Remember that your healthcare information is confidential, so carefully consider who you will allow to register on the [facility] Patient Portal for access to your information. You can also access the [facility] [employer] Patient Portal on the [employer]. Simply click on Health Records under Health Data and then click on the [facility] logo. HOW TO SAFELY DISPOSE OF PRESCRIPTION MEDICATIONS Please use one of the following methods to safely dispose of your unused medications. 1.Use a drug disposal kit: the drug disposal pouch allows you to safely discard your old and unused drugs. Ask your nurse to give you one when you are discharged.2.Visit a local take-back location: Many local pharmacies and police departments have programs that collect old and unwanted prescription drugs. Call your local pharmacy or go to http://bit.ly/6Q7Lv1w to find one close to you.3.Make use of household items: Use cat litter or old coffee grounds to dispose medications if other options are not available. Mix your drugs with these household products, seal them in an airtight container and throw it into the garbage. Call [facility]: [phone] to be sure your drugs can be disposed of in this way. Some medicines may require a different approach.4.Never flush your medications down the toilet. IF YOU HAVE BEEN PRESCRIBED AN OPIOID FOR PAIN If you have been prescribed an opioid (such as hydrocodone, oxycodone or morphine), it is critical to understand the possible side effects and risks of opioid pain medications. Even when taken as directed, opioids can have several side effects including: Tolerance, meaning you might need to take more of a medication for the same pain relief. Nausea, vomiting and/or constipation. Sleepiness, dizziness, dry mouth, confusion, depression or itching. Physical dependence, meaning you have withdrawal symptoms when a medication is stopped, can develop within a few days. KNOW YOUR RESPONSIBILITIES It is important to know exactly how much and how often to take the opioid pain medications you are prescribed. Never take opioids in higher amounts or more often than prescribed. Do not combine opioids with alcohol or other drugs that cause drowsiness, such as benzodiazepines, also known as benzos, including diazepam and alprazolam, muscle relaxants or sleep aids. Never sell or share prescription opioids. This is illegal. Store opioids in a secure place and out of reach of others (including children, family, friends and visitors). The last page of this document has been signed and retained as a CHART COPY Signatures Patient Education Materials 7 - Labor and Delivery Outpatient Instructions (CUSTOM) Pyelonephritis, Adult Medication Leaflets My discharge plan and instructions have been reviewed and explained to me and I,BLUE ZAZUETA understand my current condition and have read and understand these discharge instructions. I have received a written copy of the plan/instructions. If I have questions, I am aware that I should contact my doctor. 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 Patient is is under the care of of [facility]. She states that for the past 3 days she has been having right-sided flank pain and presented to the hospital today for evaluation and was found to have right-sided hydronephrosis while there. She was started on Rocephin there for presumed pyelonephritis and transferred to our facility for higher level of care. The patient reports that she underwent a lithotripsy last year for similar episode of nephrolithiasis. Today she reports that she has not had any fevers and aside from her right sided flank pain she has not had any hematuria. She denies any obstetric complaints or concerns including vaginal bleeding or contractions at this time and endorses good movement. 05/31/2025 (Dr. Peraza) pt with 1 cm stone at right uvj. pt is asymptomatic now. pt had severe pain. pt being given antibiotics. I discussed stent versus observation. Review of Systems Patient denies fever, chills, sweats, nausea or vomiting at this time. Pt denies headaches, visual disturbances, neck pain. Pt denies shortness of breath or dyspnea. Pt denies chest pain, palpitations. Pt denies abdominal pain, or flank pain. Pt denies lower extremity swelling or gait disturbances at this time. Physical Exam Vitals and Measurements T: 36.9 C (Oral) TMIN: 36.7 C (Oral) TMAX: 36.9 C (Oral) HR: 97 (Monitored) RR: 16 BP: 105/48 SpO2: 98% HT: 155 cm WT: 75.5 kg BMI: 31.43 Weight Dosing Weight: 75.5 kg (05/30/25) Pt appears normal in appearance. No acute distress. Breathing non-labored abd soft, nt, normal distension, no palpable masses, no renal tenderness, no suprapubic tenderness extremities without edema Lab Results 05/31 06:38 WBC: 9.5 Hgb: 10.4 L Hct: 29.5 L Platelet: 293 Neutrophil %: 77.7 H Glucose Level: 84 Sodium Level: 139 Potassium Level: 3.5 BUN: 9.0 Creatinine Lvl (s): 0.75 05/30 22:40 WBC: 12.1 H Hgb: 10.3 L Hct: 29.6 L Platelet: 278 Neutrophil %: 81.2 H Glucose Level: 138 H Sodium Level: 139 Potassium Level: 3.1 L BUN: 11.0 Creatinine Lvl (s): 1.00 Imaging Results and Diagnostics (05/30/2025 23:50 EDT US Renal) IMPRESSION: 1 cm calculus at the right UVJ with nonvisualization of the right ureter jet. 1.3 cm calculus at the inferior pole of the left kidney with mild pelviectasis. Moderate right hydronephrosis. [1] Assessment/Plan 1. Right ureteral calculus asymptomatic now. discussed stent under local. discussed that I would not recommend full anesthesia at this time. 2. Hydronephrosis, right pt feeling better. observe for now. pt to be observeed and if pain comes back then we will do stent. otherwise conservative management. 3. Kidney stone on left side This will require ESWL in future. Problem List/Past Medical History Ongoing Historical Procedure/Surgical History No qualifying data available. Medications Inpatient Bolus LR 500 mL, 500 mL, IV Bolus, AsDirected, PRN Dextrose 50% IV Push, 25 gram(s)= 50 mL, IV Push, AsDirected, PRN Dilaudid, 2 mg= 2 mL, IV Push, q6hr, PRN Flomax, 0.4 mg= 1 cap(s), Oral, qPM LR 1,000 mL, 1000 mL, Intravenous multivitamin, , 1 tab(s), Oral, qDay oxyCODONE 5 mg oral tablet ( IMMEDIATE release ), 5 mg= 1 tab(s), Oral, q4h, PRN Rocephin, 2 gram(s)= 20 mL, IV Push (INT), qDay Tylenol, 1000 mg= 2 tab(s), Oral, q8h, PRN Zofran, 4 mg= 2 mL, IV Push, q4h, PRN Home AD, 1 tab(s), Oral, qDay Allergies NKA Social History Tobacco Nicotine Use: Never (less than 100 in lifetime)., 05/30/2025 Immunizations No qualifying data available. [1] US Renal; NATALIIA FISCHER MD 05/30/2025 23:50 EDT Digitally Signed by BATSEHVA PERAZA MD on 05/31/2025 09:03 AM [facility] 05-30-2025 Note Exam Date Time Procedure Performing Provider Status 05/30/25 11:50 PM US Renal NATALIIA FISCHER MD; Auth (Verified) [id number] ORIGINAL EXAMINATION: ULTRASOUND OF THE KIDNEYS 05/30/2025 11:59 pm COMPARISON: None. HISTORY: ORDERING SYSTEM PROVIDED HISTORY: Reason for Exam: with kidney stones, right sided pain FINDINGS: The right kidney measures 13 in length and the left kidney measures 12.2 cm in length. Kidneys demonstrate normal cortical echogenicity. There is an echogenic shadowing 1 cm calculus at the right UVJ with associated moderate right hydronephrosis. At the inferior pole of the left kidney there is an echogenic 1.3 cm shadowing calculus with mild left pelviectasis. Bladder volume of 120 mL and no significant postvoid residual. Nonvisualization of the right ureter jet. IMPRESSION: 1 cm calculus at the right UVJ with nonvisualization of the right ureter jet. 1.3 cm calculus at the inferior pole of the left kidney with mild pelviectasis. Moderate right hydronephrosis. Interpreted by: Nataliia Fischer Preliminary Report By: Nataliia Fischer Electronically signed By Nataliia Fischer Dictated Date: 05/31/2025 8:04:12 AM Prelim Date: 05/31/2025 8:07:00 AM Sign Date: 05/31/2025 8:07:00 AM Ordering Provider: CANDIS BOYD RP [id number] Consult note Patient: BLUE ZAZUETA Age: 24 years Sex: Female : 2000 Associated Diagnoses: None Author: MICHELLE SLATER APRN-VLAD Preoperative Information Time of last food or liquid consumption: 05/30/2025 20:00:00 Anesthesia history Patient's history: negative. Family's history: negative. Health Status Allergies: No active allergies have been recorded., No qualifying data available Current medications: (Selected) Inpatient Medications Ordered Bolus LR 500 mL: 500 mL, IV Bolus, AsDirected, PRN: Other (see order comments) Dextrose 50% IV Push: 25 gram(s), 50 mL, IV Push, AsDirected, PRN: Low blood sugar Dilaudid: 2 mg, 2 mL, IV Push, q6hr, PRN: Pain, breakthrough Flomax: 0.4 mg, 1 cap(s), Oral, qPM LR 1,000 mL: 125 mL/hr, Intravenous Rocephin: 2 gram(s), 20 mL, 240 mL/hr, IV Push (INT), qDay Tylenol: 1,000 mg, 2 tab(s), Oral, q8h, PRN: as needed for pain Zofran: 4 mg, 2 mL, IV Push, q4h, PRN: as needed for nausea/vomiting multivitamin, : 1 tab(s), Oral, qDay oxyCODONE 5 mg oral tablet ( IMMEDIATE release ): 5 mg, 1 tab(s), Oral, q4h, PRN: Pain, scale 7-10 Documented Medications Documented AD: 1 tab(s), Oral, qDay, 0 Refill(s), Medications (10) Active Scheduled: (3) cefTRIAXone IVP syringe 2 gram(s) 20 mL, IV Push (INT), qDay multivitamin, Multivitamins with Folic Acid 1 mg Tab 1 tab(s), Oral, qDay tamsulosin 0.4 mg Capsule 0.4 mg 1 cap(s), Oral, qPM Continuous: (1) Lactated Ringers 1,000 mL 1,000 mL, Intravenous, 125 mL/hr PRN: (6) acetaminophen 500 mg Tablet 1,000 mg 2 tab(s), Oral, q8h dextrose 50% Solution Disp syringe 50 mL 25 gram(s) 50 mL, IV Push, AsDirected hydromorphone 1 mg/mL (1mL) INJ 2 mg 2 mL, IV Push, q6hr Lactated Ringers Injection 500 mL * Bolus * 500 mL, IV Bolus, AsDirected ondansetron 2 mg/ 1 mL 2 mL INJ 4 mg 2 mL, IV Push, q4h oxycodone 5 mg tablet (immediate release) 5 mg 1 tab(s), Oral, q4h Problem list: Medical / SNOMED CT [id number] / Confirmed, Active Problems (1) Histories Past Medical History: Resolved ([id number]): Onset on 03/01/2023 at 22 years. Resolved on 12/09/2023 at 23 years. ([id number]): Onset on 02/17/2022 at 21 years. Resolved on 11/10/2022 at 22 years. ([id number]): Onset on 01/02/2021 at 20 years. Resolved on 10/06/2021 at 21 years. Family History: No family history items have been selected or recorded. Procedure history: No active procedure history items have been selected or recorded. Social History: Social & Psychosocial Habits Tobacco 05/30/2025 Tobacco Use: Never (less than 100 in l Physical Examination Vital Signs 05/30/2025 21:30 EDT Temperature Oral 36.8 DegC Respiratory Rate 16 br/min Measurements from flowsheet : Measurements 05/30/2025 21:43 EDT Height 155 cm Admission Weight 75.5 kg Stirling Body Weight 47.85 kg BSA Admission 1.75 Body Mass Index 31.43 kg/m2 General: Alert and oriented. Airway: Normal temporomandibular joint mobility. Mallampati classification: II (soft palate, fauces, uvula visible). Head: Normocephalic. Dentition Evaluation: Intact, Own teeth. Neck: Supple. Respiratory: Lungs are clear to auscultation. Cardiovascular: Normal rate. Heart Sounds: Normal. Gastrointestinal: Soft, Non-tender. Musculoskeletal Normal range of motion. Normal strength. Integumentary: Intact, Warm. Neurologic: Alert, Oriented, Normal sensory, Normal motor function. Review / Management Results review: Labs (Last four charted values) WBC H 12.1(MAY 30) Hgb L 10.3(MAY 10) Hct L 29.6(MAY 10) Plt 278(MAY 10) Na 139(MAY 10) K L 3.1(MAY 10) CO2 26(MAY 10) Cl 104(MAY 10) Cr 1.00(MAY 10) BUN 11.0(MAY 10) Glucose H 138(MAY 10) Ca 9.0(MAY 10) . Assessment and Plan [place] [employer]esthesi[employer] (ASA) physical status classification: Class II. Anesthetic Preoperative Plan Premedication: intravenous. Anesthetic technique: Epidural. Regional: Epidural. Postoperative pain management: Per surgeon. Risks discussed: nausea, vomiting, headache, sore throat, dental injury, hypotension, allergic reaction, serious complications. Informed consent: signed by patient. Notes: Review documentation, agree with assessment and plan. Digitally Signed by MICHELLE SLATER on 05/30/2025 11:31 PM Digitally Signed by MO VARGAS MD on 05/31/2025 05:50 AM [id number] Medical Records Department [address] [place] [id number] History Physical Exam 03/05/24 0832 MR#: [id number] Acct: [id number] Name: BLUE ZAZUETA Rep #: [id number] : 2000 23 From: Radhames Gamboa MD PCP: Dr. Era Martins MD Status:ADM EMANUEL Location: [place] [address] HPI - General General Date of Admission: 03/05/24 Date of Service: 03/05/24 Chief Complaint: Left flank pain HPI Narrative BLUE ZAZUETA, is a 23 F who presented to the emergency room with uncontrolled left flank pain with nausea and vomiting. She has had this pain for approximately 5 days. She denies fever, chills, dysuria, hematuria or lower urinary tract symptoms. The pain is also in her left upper abdomen. She has no history of kidney stones previously but did have urinary tract infections during her . She last delivered approximately 3 months ago. [facility] Medical History Kidney stone Home Medications ???Medication ???Instructions ???Recorded ???Last Taken ???Type nitrofurantoin macrocrystal 100 mg 100 mg PO Q12H #10 caps 05/25/23 Unknown Rx capsule omeprazole 20 mg capsule,delayed 20 mg PO DAILY #30 CAPSULES 02/29/24 Unknown Rx release Allergy/AdvReac Type Severity Reaction Status Date / Time No Known Allergies Allergy Verified 02/29/24 11:42 Social History Smoking Status: Never smoker ROS Constitutional Constitutional: Denies chills or fever(s) Eyes Eyes: Reports systems reviewed and no addt'l complaints, except as documented ENT HEENT: Reports systems reviewed and no addt'l complaints, except as documented Cardiovascular Cardiovascular: Denies chest pain, diaphoresis or dyspnea Respiratory/Chest Respiratory/Chest: Denies chest congestion or cough Gastrointestinal Gastrointestinal: Reports abdominal pain, nausea and vomiting Genitourinary Genitourinary: Reports abdominal discomfort and flank pain; Denies burning urination, dysuria or hematuria Musculoskeletal Musculoskeletal: Reports back pain Integumentary Integumentary: Reports systems reviewed and no addt'l complaints, except as documented Neurologic Neurologic: Reports systems reviewed and no addt'l complaints, except as documented Psychiatric Psychiatric: Reports systems reviewed and no addt'l complaints, except as documented Endocrine Endocrinology: Reports systems reviewed and no addt'l complaints, except as documented Hematologic/Lymphatic Hematologic/Lymphatic: Reports systems reviewed and no addt'l complaints, except as documented Allergic/Immunologic Allergic/Immunologic: Reports systems reviewed and no addt'l complaints, except as documented Vital Signs Vital Signs Vital Signs: 03/04/24 23:33 03/04/24 23:38 03/05/24 01:32 Temperature 98.9 F 98.9 F 98 F Temperature Source Temporal Temporal Temporal Pulse Rate 90 94 103 H Respiratory Rate 18 18 16 Respiratory Effort Respiratory Depth Respiratory Pattern Blood Pressure 133/85 H 113/80 Blood Pressure Mean 101 91 Blood Pressure Source Blood Pressure Position Blood Pressure Location Pulse Ox 98 95 98 Oxygen Delivery Method Room Air Room Air Room Air 03/05/24 02:48 03/05/24 02:57 03/05/24 03:00 Temperature 98 F 98 F Temperature Source Oral Pulse Rate 103 H 96 Respiratory Rate 16 14 Respiratory Effort Normal Non-Labored Respiratory Depth Normal Respiratory Pattern Normal Blood Pressure 113/80 115/71 Blood Pressure Mean 91 85 Blood Pressure Source Monitor Blood Pressure Position Semi-Fowlers Blood Pressure Location Right Arm Pulse Ox 98 98 Oxygen Delivery Method Room Air Room Air Weight Weight: 68.7 kg Body Mass Index (BMI) 28.6 Results Lab / Micro Data 03/05/24 00:27 03/05/24 00:27 Labs: Laboratory Results - last 24 hr 03/05/24 00:27: WBC 9.4, RBC 3.78 L, Hgb 10.8 L, Hct 32.8 L, MCV 86.8, MCH 28.6, MCHC 32.9, RDW Std Deviation 38.1, RDW Coeff of Lawson 12.0, Plt Count 329, MPV 9.6, Immature Gran % (Auto) 2.000 H, Neut % (Auto) 71.5 H, Lymph % (Auto) 15.5 L, Mchenry % (Auto) 8.4, Eos % (Auto) 2.2, Baso % (Auto) 0.4, Absolute Neuts (auto) 6.7, Absolute Lymphs (auto) 1.46, Nucleated RBC % 0, Sodium 138, Potassium 3.3 L, Chloride 107, Carbon Dioxide 23.0, Anion Gap 8, BUN 15, Creatinine 1.29 H, Estim Creat Clear Calc 60.13, Est GFR (MDRD) Af Amer 66, Est GFR (MDRD) Non-Af 54 L, BUN/Creatinine Ratio 11.6, Glucose 99, Calcium 8.5 03/05/24 00:34: Urine Color Yellow, Urine Clarity Clear, Urine pH 6.5, Ur Specific [place] 1.010, U rine Protein 30 H, Urine Glucose (UA) Normal, Urine Ketones 50 H, Urine Occult Blood 25 H, Urine Nitrite Negative, Urine Bilirubin Negative, Urine Urobilinogen (more content not included)...[facility] No data available for this section [facility] Summary Purpose Family History No Family History Records FoundNo Family History Records Found No data available for this section No Family History Records FoundNo Family History Records Found Advance Directives No Advanced Directives Records FoundNo Advanced Directives Records FoundNo Advanced Directives Records FoundNo Advanced Directives Records Found Additional Source Comments INFORMATION SOURCE (unrecogn ized section and content) DATE CREATED AUTHOR 03/20/2021 [facility] DATE CREATED AUTHOR AUTHOR'S ORGANIZ ATION 04/29/2024 [facility] DATE CREATED AUTHOR AUTHOR'S ORGANIZ ATION 06/03/2025 [facility] DATE CREATED AUTHOR AUTHOR'S ORGANIZ ATION 06/19/2025 [facility] Patient Care team informatio n (unrecognized section and content) Care Team Personnel Name: Alanis Toure RN Position: OB RN Member Role: RN Name: Henna Canada RN Position: OB RN Member Role: Nursing Name: Florencia Butler Ivan Position: OB RN Member Role: Nursing Name: Bernice Schultz RN Position: OB RN Member Role: RN Name: Fransisca Tate Position: OB RN Member Role: Nursing Name: CAESAR Streeter M. Position: P4 Ambulatory RN Member Role: Nursing Name: Shannon Tamez V RN Position: OB RN Member Role: Nursing Name: Zuleyma Montoya RN Position: OB RN Member Role: Nursing Name: Tsering Reyes RN Position: OB RN Member Role: Nursing Name: Trang Miguel RN Position: OB RN Member Role: Nursing Name: Noni Walker RN Position: OB RN Member Role: Nursing Name: Rachel Gonsales RN Position: OB RN Member Role: Nursing Name: Kathy Westbrook RN Position: OB RN Member Role: Nursing Name: Ramona Covington RN Position: OB RN Member Role: Nursing Name: Karla Martínez RN Position: OB RN Member Role: Nursing Name: CAESAR Sinha Position: OB RN Member Role: Nursing Name: Danita Gauthier RN Position: OB RN Member Role: Nursing Name: Lake Fontanez RN Position: OB RN Member Role: Nursing Name: Tabitha Yoo RN Position: OB RN Member Role: Nursing Name: CAESAR Cardozo M Position: OB RN Member Role: Nursing Name: CAESAR Pappas Position: OB RN Member Role: Nursing Name: Coco Lomax RN Position: OB RN Member Role: Nursing Name: Brenna Davis RN Position: OB RN Member Role: Nursing Name: CAESAR Cardona Position: OB RN Member Role: Nursing Name: CAESAR Tejeda Position: OB RN Member Role: Nursing FOR RECORDS PERTAINING TO PATIENTS WHO ARE OR HAVE BEEN ENROLLED IN A CHEMICAL DEPENDENCY/SUBSTANCEABUSE PROGRAM, SOME INFORMATION MAY BE OMITTED. This clinical summary was aggregated from multiple sources. Caution should be exercised in using it in the provision of clinical care. This summary normalizes information from multiple sources, and as a consequence, information in this document may materially change the coding, format and clinical context of patient data. In addition, data may be omitted in some cases. CLINICAL DECISIONS SHOULD BE BASED ON THE PRIMARY CLINICAL RECORDS. [facility] [employer] [facility]. provides no warranty or guarantee of the accuracy or completeness of information in this document.
== END 2025-07-10 11:00 | disposition home or self-care (01) ==
PROVIDERS: Emergency Provider Surgery; PCP Family Medicine; Visit Provider Surgery
DX: R10.9 Unspecified abdominal pain (principal); O99.893 Other specified diseases and conditions complicating puerperium; M79.652 Pain in left thigh
CPT/HCPCS: 93971; 99282

== ENCOUNTER → 2025-08-11 | Outpatient (CLI) | payer OTHER, SELFPAY | END | disposition home or self-care (01) | LOC: LABSPEC 16:42 | PROVIDERS: PCP Family Medicine; Referring Provider Urology; Visit Provider Urology | DX: N20.0 Calculus of kidney (principal) | CPT/HCPCS: 82360 ==